=== PATIENT | female | born 1975 | race Caucasian/White ===

== ENCOUNTER 2019-06-11 20:50 | Inpatient (IN) | payer SELFPAY ==
[2019-06-11] MEDS ORDERED: FOLIC ACID INJECTION - 1 MG, THIAMINE HCL 100 MG, MULTIVIT INJECTION ADULT 10 ML in SOD... IVPB ONE (21:51)
[2019-06-11] MEDS ORDERED: SODIUM CHLORIDE 1,000 ML IV STA (21:51)
--- NOTE | 2019-06-11 21:53 | PDOC ---
History of Present Illness - General Chief Complaint: Alcohol intoxication Stated Complaint: DETOX Time Seen by Provider: 06/11/19 21:28 History Source: Patient Exam Limitations: No Limitations - History of Present Illness Initial Comments: 06/11/19 21:46 Patient is a 44F with history of alcohol abuse, last drink 8 days ago, here today complaining of weakness, nausea and vomiting that started about 8 days ago. Patient states that she stopped drinking because of repeated episodes of nausea and vomiting. She reports two episodes of collapsing while moving towards the bathroom with a brief loss of consciousness and urinary incontinence. No tongue biting or head pain. Patient denies changes to vision, chest pain, abdominal pain. Endorses urinary incontinence. Endorses changes to her gait, stating that it's unsteady. Denies history of seizures. Last bowel movement 8 days ago. No surgical history. Daughter at bedside reports that she' s had episodes of confusion. Past History - Past Medical History Allergies/Adverse Reactions: Allergies Allergy/AdvReac Type Severity Reaction Status Date / Time No Known Allergies Allergy Verified 06/11/19 21:14 COPD: No - Psycho Social/Smoking Cessation Hx Smoking History: Current every day smoker Have you smoked in the past 12 months: Yes Number of Cigarettes Smoked Daily: 2 Information on smoking cessation initiated: No Hx Alcohol Use: Yes Drug/Substance Use Hx: No Review of Systems - Review of Systems Able to Perform ROS?: Yes Comments:: 06/11/19 21:53 GENERAL/CONSTITUTIONAL: No fever or chills. +weakness. HEAD, EYES, EARS, NOSE AND THROAT: No change in vision. No ear pain or discharge. No sore throat. CARDIOVASCULAR: No chest pain or shortness of breath RESPIRATORY: No cough, wheezing, or hemoptysis. GASTROINTESTINAL: +nausea, +vomiting, no diarrhea +constipation. GENITOURINARY: No dysuria, +frequency MUSCULOSKELETAL: No joint or muscle swelling or pain. No neck or back pain. SKIN: No rash NEUROLOGIC: No headache, vertigo, loss of consciousness, or change in strength/ sensation. ENDOCRINE: No increased thirst. No abnormal weight change HEMATOLOGIC/LYMPHATIC: No anemia, easy bleeding, or history of blood clots. ALLERGIC/IMMUNOLOGIC: No hives or skin allergy. *Physical Exam - Vital Signs Last Vital Signs Temp Pulse Resp BP Pulse Ox 98.5 F 144 H 22 H 130/82 98 06/11/19 21:05 06/11/19 21:05 06/11/19 21:05 06/11/19 21:05 06/11/19 21:05 - Physical Exam Comments: 06/11/19 21:54 GENERAL: Awake, alert, and fully oriented, thin, ill-appearing HEAD: No signs of trauma, normocephalic, atraumatic EYES: PERRLA, EOMI, sclera icteric, conjunctiva clear ENT: Auricles normal inspection, hearing grossly normal, nares patent, oropharynx clear without exudates. Dry mucosa NECK: Normal ROM, supple, no lymphadenopathy, JVD, or masses LUNGS: No distress, speaks full sentences, clear to auscultation bilaterally HEART: Tachycardic, normal S1 and S2, no murmurs, rubs or gallops, peripheral pulses normal and equal bilaterally. ABDOMEN: Soft, nontender, normoactive bowel sounds. No guarding, no rebound. No masses EXTREMITIES: Normal inspection, Normal range of motion, no edema. No clubbing or cyanosis. NEUROLOGICAL: Cranial nerves II through XII grossly intact. Normal speech, no focal sensorimotor deficits SKIN: Warm, Dry, normal turgor, no rashes or lesions noted. ED Treatment Course - LABORATORY CBC & Chemistry Diagram: 06/11/19 21:40 06/11/19 21:40 - RADIOLOGY Radiology Studies Ordered: Category Date Time Status HEAD CT WITHOUT CONTRAST [CT] Stat CT Scan 06/11/19 21:43 Ordered CHEST X-RAY PORTABLE* [RAD] Stat Radiology 06/11/19 21:26 Ordered Medical Decision Making - Medical Decision Making 06/11/19 21:55 Patient is 44F with history of etoh abuse here with vomiting. Vitals notable for tachycardia. Patient is jaundiced and generally does not appear well. Will workup broadly looking for infection, evaluate syncope vs seizure, and hydrate. EKG shows sinus tach rate of 125. ST depressions in II, aVF, V3-V6. Normal axis. Normal intervals. No st elevations. 06/12/19 00:21 CBC shows macrocytosis CMP shows Cr 1.4, hyponatremia, hypokalemia (given 40meq K), Bili of 6, AST/ALT elevation Lipase positive to 1100 Lactate 4.8 Ammonia 66 UA shows ketones, bili, but no clear signs of infection. Labs show evidence of liver dysfunction likely 2/2 alcohol abuse. Lipase suggests pancreatitis. CT head negative. CT a/p shows evidence of gallbladder distention but no clear signs of cholecystitis or pancreatitis. Shows ?colitis. US pending. 06/12/19 01:15 US shows sludge, but no signs of cholecytitis, cbd upper limits of normal. Patient reassessed, states that she feels much better. Tachycardia has resolved. 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 Will admit. Started on LR. 06/12/19 01:41 Case d/w Dr Osorio, accepted to Dr Deleon service. Discharge - Discharge Information Problems reviewed: Yes Clinical Impression/Diagnosis: Pancreatitis Condition: Stable - Admission Yes - Follow up/Referral - Patient Discharge Instructions - Post Discharge Activity
[2019-06-11 22:11] LABS: BASO % 0.4 % (0-2.0); EOS % 0.1 % (0-4.5); HEMATOCRIT 36.2 % (32.4-45.2); HEMOGLOBIN 12.6 GM/dL (10.7-15.3); LYMPH % 12.6 % (8-40); MCH 39.9 pg (25.7-33.7); MEAN PLT VOLUME 9.6 fl (7.5-11.1); MONO % 6.7 % (3.8-10.2); NEUT % 80.2 % (42.8-82.8); PLATELET COUNT 105 K/MM3 (134-434); RBC 3.17 M/mm3 (3.60-5.2); RDW 15.4 % (11.6-15.6); WHITE BLOOD COUNT 5.3 K/mm3 (4.0-10.0)
[2019-06-11 22:13] LABS: COCAINE, UR NEGATIVE ng/ml (CUTOFF=300); METHADONE, UR NEGATIVE ng/ml (CUTOFF=300); OPIATES, URI NEGATIVE ng/ml (CUTOFF=300); PHENCYCLIDINE,URINE NEGATIVE ng/ml (CUTOFF=25); URINE AMPHETAMINES NEGATIVE ng/ml (CUTOFF=500); URINE BARBITURATES NEGATIVE ng/ml (CUTOFF=200)
[2019-06-11 22:14] LABS: URINE BENZODIAZEPINES POSITIVE ng/ml (CUTOFF=200)
--- NOTE | 2019-06-11 22:18 | PDOC ---
Documentation entered by Mona Yanes SCRIBE, acting as scribe for Roseline Campbell DO. Roseline Campbell DO: This documentation has been prepared by the Joaquín lorenzana Adrianna, SCRIBE, under my direction and personally reviewed by me in its entirety. I confirm that the documentation accurately reflects all work, treatment, procedures, and medical decision making performed by me. Attending Attestation - Resident Resident Name: Keven Giang - ED Attending Attestation I have performed the following: I have examined & evaluated the patient, The case was reviewed & discussed with the resident, I agree w/resident's findings & plan - HPI HPI: The patient is a 44 year old female, with a PMH of alcohol abuse (last drink was 8 days ago), presenting with nausea, vomit, and weakness for 8 days. Patient reports multiple episodes of nausea and NBNB vomit, and stopped drinking as a result. She endorses generalized weakness and unsteady gait, which 2 episodes of collapsing with brief LOC and urinary incontinence. Allergies: NKA, NKDA Surgical History: None reported Social History: Current everyday smoker (2 cigarettes per day). Alcohol abuse ( last drink 8 days ago). - Physicial Exam PE: Agree with resident exam. - Medical Decision Making 06/11/19 22:12 44 yo female with abd pain, n/v and possible syncope/seizure with ETOH dependance plan for vitamin replacment, ivf, CXR, CT scan abd/pelvis and brain Will initiate withdrawal benzodiazepine protocol as needed Due to vomiting and withdrawal symptoms patient will require admission to medical service
[2019-06-11 22:19] LABS: MAGNESIUM 1.2 mg/dL (1.8-2.4)
[2019-06-11 22:24] LABS: INR 1.28 (0.83-1.09); PROTHROMBIN TIME (PATIENT) 15.1 SEC (9.7-13.0)
[2019-06-11 22:29] LABS: ALBUMIN 4.4 g/dl (3.4-5.0); ALK PHOS 198 U/L (45-117); ANION GAP 25 MMOL/L (8-16); BILIRUBIN,TOTAL 6.5 mg/dL (0.2-1); BLOOD UREA NITROGEN 3.5 mg/dL (7-18); CALCIUM 9.8 mg/dL (8.5-10.1); CHLORIDE 81 mmol/L (98-107); CO2 22 mmol/L (21-32); CREATININE 1.4 mg/dL (0.55-1.3); GLUCOSE,RANDOM 145 mg/dL (74-106); SGOT/AST 277 U/L (15-37); SGPT/ALT 117 U/L (13-61); SODIUM 128 mmol/L (136-145); TOT PROT 8.5 g/dl (6.4-8.2)
[2019-06-11 22:34] LABS: POTASSIUM 2.3 mmol/L (3.5-5.1)
[2019-06-11] MEDS ORDERED: POTASSIUM CHLORIDE 20 MEQ PREMIX IVPB 100 ML IVPB ONE (22:35)
[2019-06-11 23:01] LABS: URINE APPEARANCE Clear; URINE BILIRUBIN 3+ (NEGATIVE); URINE COLOR Yellow; URINE GLUCOSE (UA) Trace (NEGATIVE); URINE KETONE 4+ (NEGATIVE); URINE LEUK ESTERASE 1+ (NEGATIVE); URINE NITRITE Negative (NEGATIVE); URINE PROTEIN 2+ (NEGATIVE); URINE UROBILINOGEN >=8.0 E.U./dl mg/dL (0.2-1.0)
[2019-06-11 23:12] LABS: ANISOCYTOSIS 1+
[2019-06-11 23:13] LABS: PLATELET ESTIMATE SLT DECREASE
[2019-06-12] MEDS ORDERED: LACTATED RINGERS SOLUTION 1,000 ML/1,000 ML INFUS.BAG IV STA (01:13)
[2019-06-12] MEDS ORDERED: MAGNESIUM SULF 50% (8.12 MEQ/2 ML-1 GM VIAL) IVPB ONE ×3 (01:45→22:01)
[2019-06-12] MEDS ORDERED: MAGNESIUM 1GM/D5W - 1 GM/100 ML IVPB IVPB ONE (01:48)
--- NOTE | 2019-06-12 03:00 | HP ---
CHIEF COMPLAINT: weakness PCP: none HISTORY OF PRESENT ILLNESS: 44 y.o. F PMH EtOH abuse and eczema presenting from home for weakness, nausea, vomiting and multiple falls for the past 3 weeks. Patient says she has been increasingly nauseous over the last 8 days with innumerable episodes NBNB emesis daily, as well as inability to eat for 7 days total. She has been able to hold down some water. 8 days ago the N/V was so severe that she could not hold down her usual 4-5 daily cups of alcohol-- 4 days ago she tried taking small sips of vodka but immediately vomited. Pt has had 6 falls over the past 10 days and says her gait has been unsteady-- 3 days ago she lost consciousness w/ urinary incontinence but her boyfriend caught her before hitting the floor-- last fall was yesterday where she hit her head but did not lose consciousness. She has not had a full BM in 8 days although had a little bit yesterday but not a full BM. Pt endorsed to ED staff she has been taking benzos over the last few days which has helped with her nausea. Denies sick contacts. On ROS: + urinary urgency Denies CP/ SOB/ CAMERON/ tremors/ abdominal pain/ fevers/ diarrhea/ polyuria/ hematuria/ parasthesias/ myalgias/ AV hallucinations. ER course was notable for: (1) Tachy to 144; ekg shows sinus tach (2) Lipase 1229 Ammonia 66.1 Lactate 4.8 T.Bili 6.5 AST/ALT 277/117; BUN/ Cr 3.5/1.4 (3) CT abd/pel: fatty liver, nonspecific colitis; abd US: GB sludge; CT head neg (4) +UA: ketones, protein, LE, bili, urobilinogen; Utox + for benzos Recent Travel: denies PAST MEDICAL HISTORY: etoh abuse, eczema PAST SURGICAL HISTORY: none Social History: lives w/ 23 yr old daughter & boyfriend. 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 Smoking: normally smoke about 1 pack/ day for many years--- past 8 days 2-3 cigarettes per day Alcohol: 4-5 cups vodka daily. Started drinking 5 years ago Drugs: denies Allergies No Known Allergies Allergy (Verified 06/11/19 21:14) HOME MEDICATIONS: none Family hx: HTN, DM in mother. PHYSICAL EXAMINATION Vital Signs - 24 hr 06/11/19 06/11/19 06/11/19 21:05 22:21 23:41 Temperature 98.5 F 99.0 F Pulse Rate 144 H Pulse Rate [ 117 H 116 H Apical] Respiratory 22 H 20 19 Rate Blood Pressure 130/82 Blood Pressure 133/78 124/88 [Right Arm] O2 Sat by Pulse 98 100 99 Oximetry (%) GENERAL: Thin female appears stated age. Awake, alert, and fully oriented, in no acute distress. HEENT: NCAT. Scleral icterus present. Facial pallor. MMM. Skin is erythematous- pt says it is normal from eczema LUNGS: Breath sounds equal, clear to auscultation bilaterally. No wheezes, and no crackles. No accessory muscle use. HEART: Regular rate and rhythm, normal S1 and S2 without murmurs ABDOMEN: Negative murphys sign. Soft, nontender, not distended, normoactive bowel sounds, no guarding, no organomegaly. MUSCULOSKELETAL: Good ROM. No CVA tenderness. EXTR: 2+ pulses palpated b/l UE & LE. No peripheral edema noted. Mild tremors w / outstrectched hands. No tongue fasciculations noted. NEUROLOGICAL: Cranial nerves II-XII intact. Sensory intact b/l UE & LE. Motor strength WNL. Normal speech. Normal gait. PSYCHIATRIC: Good mood, affect appropriate to mood. Laboratory Results - last 24 hr 06/11/19 06/11/19 06/11/19 21:38 21:40 21:40 WBC 5.3 RBC 3.17 L Hgb 12.6 Hct 36.2 MCV 114.0 H MCH 39.9 H MCHC 35.0 RDW 15.4 Plt Count 105 L MPV 9.6 Absolute Neuts (auto) 4.3 Neutrophils % 80.2 Lymphocytes % 12.6 Monocytes % 6.7 Eosinophils % 0.1 Basophils % 0.4 Nucleated RBC % 0 Platelet Estimate Slt decrease Anisocytosis 1+ Stomatocytes 1+ PT with INR INR Sodium Potassium Chloride Carbon Dioxide Anion Gap BUN Creatinine Est GFR (CKD-EPI)AfAm Est GFR (CKD-EPI)NonAf Random Glucose Lactic Acid 4.8 H* Calcium Magnesium Total Bilirubin AST ALT Alkaline Phosphatase Ammonia Creatine Kinase 96 Troponin I < 0.02 Total Protein Albumin Lipase Urine Color Urine Appearance Urine pH Ur Specific [place] Urine Protein Urine Glucose (UA) Urine Ketones Urine Blood Urine Nitrite Urine Bilirubin Urine Urobilinogen Ur Leukocyte Esterase Urine RBC (Auto) Urine HCG, Qual Opiates Screen Methadone Screen Barbiturate Screen Phencyclidine Screen Ur Amphetamines Screen MDMA (Ecstasy) Screen Benzodiazepines Screen Cocaine Screen U Marijuana (THC) Screen Alcohol, Quantitative 06/11/19 06/11/19 06/11/19 21:40 21:40 21:40 WBC RBC Hgb Hct MCV MCH MCHC RDW Plt Count MPV Absolute Neuts (auto) Neutrophils % Lymphocytes % Monocytes % Eosinophils % Basophils % Nucleated RBC % Platelet Estimate Anisocytosis Stomatocytes PT with INR 15.10 H INR 1.28 H Sodium 128 L Potassium 2.3 L* Chloride 81 L Carbon Dioxide 22 Anion Gap 25 H BUN 3.5 L Creatinine 1.4 H Est GFR (CKD-EPI)AfAm 52.09 Est GFR (CKD-EPI)NonAf 44.95 Random Glucose 145 H Lactic Acid Calcium 9.8 Magnesium 1.2 L Total Bilirubin 6.5 H AST 277 H ALT 117 H Alkaline Phosphatase 198 H Ammonia Creatine Kinase Troponin I Total Protein 8.5 H Albumin 4.4 Lipase 1229 H Urine Color Urine Appearance Urine pH Ur Specific [place] Urine Protein Urine Glucose (UA) Urine Ketones Urine Blood Urine Nitrite Urine Bilirubin Urine Urobilinogen Ur Leukocyte Esterase Urine RBC (Auto) Urine HCG, Qual Opiates Screen Methadone Screen Barbiturate Screen Phencyclidine Screen Ur Amphetamines Screen MDMA (Ecstasy) Screen Benzodiazepines Screen Cocaine Screen U Marijuana (THC) Screen Alcohol, Quantitative < 3.0 06/11/19 06/11/19 06/11/19 21:40 21:40 21:40 WBC RBC Hgb Hct MCV MCH MCHC RDW Plt Count MPV Absolute Neuts (auto) Neutrophils % Lymphocytes % Monocytes % Eosinophils % Basophils % Nucleated RBC % Platelet Estimate Anisocytosis Stomatocytes PT with INR INR Sodium Potassium Chloride Carbon Dioxide Anion Gap BUN Creatinine Est GFR (CKD-EPI)AfAm Est GFR (CKD-EPI)NonAf Random Glucose Lactic Acid Calcium Magnesium Total Bilirubin AST ALT Alkaline Phosphatase Ammonia Creatine Kinase Troponin I Total Protein Albumin Lipase Urine Color Yellow Urine Appearance Clear Urine pH 6.0 Ur Specific [place] 1.025 Urine Protein 2+ H Urine Glucose (UA) Trace Urine Ketones 4+ H Urine Blood Trace-lysed Urine Nitrite Negative Urine Bilirubin 3+ H Urine Urobilinogen >=8.0 e.u./dl H Ur Leukocyte Esterase 1+ H Urine RBC (Auto) Environmental Sampler Urine HCG, Qual Negative Opiates Screen Negative Methadone Screen Negative Barbiturate Screen Negative Phencyclidine Screen Negative Ur Amphetamines Screen Negative MDMA (Ecstasy) Screen Negative Benzodiazepines Screen Positive A* Cocaine Screen Negative U Marijuana (THC) Screen Negative Alcohol, Quantitative 06/11/19 21:40 WBC RBC Hgb Hct MCV MCH MCHC RDW Plt Count MPV Absolute Neuts (auto) Neutrophils % Lymphocytes % Monocytes % Eosinophils % Basophils % Nucleated RBC % Platelet Estimate Anisocytosis Stomatocytes PT with INR INR Sodium Potassium Chloride Carbon Dioxide Anion Gap BUN Creatinine Est GFR (CKD-EPI)AfAm Est GFR (CKD-EPI)NonAf Random Glucose Lactic Acid Calcium Magnesium Total Bilirubin AST ALT Alkaline Phosphatase Ammonia 66.10 H Creatine Kinase Troponin I Total Protein Albumin Lipase Urine Color Urine Appearance Urine pH Ur Specific [place] Urine Protein Urine Glucose (UA) Urine Ketones Urine Blood Urine Nitrite Urine Bilirubin Urine Urobilinogen Ur Leukocyte Esterase Urine RBC (Auto) Urine HCG, Qual Opiates Screen Methadone Screen Barbiturate Screen Phencyclidine Screen Ur Amphetamines Screen MDMA (Ecstasy) Screen Benzodiazepines Screen Cocaine Screen U Marijuana (THC) Screen Alcohol, Quantitative CT Head: mild cortical atrophy greater than expected for age CT abd/pel with contrast: Enlarged liver w/ fatty changes. Circumferential thickening of cecum & asc colon compatible w/ nonspecific colitis, ischemic, inflamm or infectious. Mod to large amt of retained stool in distal colon. IUD present. Small rt inguinal hernia containing fat. Mild atelectasis at R lung base. Abd U/S: GB sludge. CBD is upper limits of normal measuring 6mm. Pancreatic body & tail appear normal; tail obscured by bowel gas ASSESSMENT/PLAN: 44 y.o. F PMH EtOH abuse and eczema presenting from home due to weakness. #Acute alcoholic hepatitis 2/2 chronic EtOH abuse -Lipase 1229, T.bili 6.5 -Abdominal exam WNL no pain -CT abd/pel shows liver steatosis -Ammonia 66.1 -[facility] discriminant function 25; no indication for steroid tx at this time -NPO -Aggressive hydration -IV Zofran for nausea PRN -F/u hepatitis panels, HIV (consent verbally obtained from patient) #Colitis/ gastritis -IV Protonix #Syncopal episode -Monitor on tele -EKG shows ST depressions in II, V4, V5, aVF -F/u repeat trop & EKG, echo #High anion gap metabolic acidosis w/ likely metabolic alkalosis -Likely 2/2 alcohol abuse--> lactic acidosis (lactate 4.8 downtrended to 1.6) -Pt satting well on RA no resp distress -F/u ABG, calc delta gap #EtOH abuse -MCV 114; AST/ALT 277/117 -Banana bag -Thiamine & FA -Ativan PRN 2mg q2h for withdrawal -Fall, aspiration, seizure precautions #Dehydration -Poor PO intake, vomiting -C/w aggressive hydration -BUN 3.5-- f/u AM BMP -Repleting lytes #GANESH -Cr 1.4 no baseline -likely 2/2 dehydration volume loss -f/u urine lytes calc FeNa -avoid nephrotoxic medications #Constipation -D/t dehydration -Senna -Continue to monitor #Eczema -Pt using aquaphor at home #FEN -Aggresive hydration w/ NS @200mL/hr w/ KCL -Hyponatremic, hypokalemic, hypomagnesemic, hypochloremic-- likely 2/2 poor PO intake replete lytes PRN. 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 - New Patient This patient is new to me today: Yes Date on this admission: 06/12/19 - Critical Care Critical Care patient: No ATTENDING PHYSICIAN STATEMENT I saw and evaluated the patient. I reviewed the resident's note and discussed the case with the resident. I agree with the resident's findings and plan as documented. SUBJECTIVE: OBJECTIVE: ASSESSMENT AND PLAN:
[2019-06-12] MEDS ORDERED: FOLIC ACID INJECTION - 1 MG, THIAMINE HCL 100 MG, MULTIVIT INJECTION ADULT 10 ML in SOD... IVPB ONE (03:08)
--- NOTE | 2019-06-12 03:15 | PN ---
Teaching Attending Note Name of Resident: Clarissa Osorio ATTENDING PHYSICIAN STATEMENT I saw and evaluated the patient. I reviewed the resident's note and discussed the case with the resident. I agree with the resident's findings and plan as documented. SUBJECTIVE: 44yo woman with chronic etoh abuse, drinks up up to 3 cups of hard liquor/day c/ o several days of nonbloody, nonbilious vomiting, unable to keep down food. Reports last drink was about 7-10 days ago. She feels weak, reported up to 5 episodes of syncope of last 5 days. Denied trauma to head. Denied illicit drug use. OBJECTIVE: Last Vital Signs Temp Pulse Resp BP Pulse Ox 99.0 F 116 H 19 124/88 100 06/11/19 23:41 06/11/19 23:41 06/11/19 23:41 06/11/19 23:41 06/11/19 23:41 heent - icteric sclera, dry oral mucosa, emaciated neck supple, sunken cheeks cv-s1+s2+tachy chest clear b/l abdomen -ruq tenderness to palpation, enlarged liver palpable, bs+, soft skin- jaundiced, no rashes appreciated, no track melara seen Abnormal Lab Results 06/11/19 06/11/19 06/11/19 21:38 21:40 21:40 RBC 3.17 L MCV 114.0 H MCH 39.9 H Plt Count 105 L PT with INR INR Sodium 128 L Potassium 2.3 L* Chloride 81 L Anion Gap 25 H BUN 3.5 L Creatinine 1.4 H Random Glucose 145 H Lactic Acid 4.8 H* Magnesium Total Bilirubin 6.5 H AST 277 H ALT 117 H Alkaline Phosphatase 198 H Ammonia Total Protein 8.5 H Lipase Urine Protein Urine Ketones Urine Bilirubin Urine Urobilinogen Ur Leukocyte Esterase Benzodiazepines Screen 06/11/19 06/11/19 06/11/19 21:40 21:40 21:40 RBC MCV MCH Plt Count PT with INR 15.10 H INR 1.28 H Sodium Potassium Chloride Anion Gap BUN Creatinine Random Glucose Lactic Acid Magnesium 1.2 L Total Bilirubin AST ALT Alkaline Phosphatase Ammonia Total Protein Lipase 1229 H Urine Protein Urine Ketones Urine Bilirubin Urine Urobilinogen Ur Leukocyte Esterase Benzodiazepines Screen Positive A* 06/11/19 06/11/19 21:40 21:40 RBC MCV MCH Plt Count PT with INR INR Sodium Potassium Chloride Anion Gap BUN Creatinine Random Glucose Lactic Acid Magnesium Total Bilirubin AST ALT Alkaline Phosphatase Ammonia 66.10 H Total Protein Lipase Urine Protein 2+ H Urine Ketones 4+ H Urine Bilirubin 3+ H Urine Urobilinogen >=8.0 e.u./dl H Ur Leukocyte Esterase 1+ H Benzodiazepines Screen imaging reviewed - abd/pelvis ct- hepatomegally, enlarged gallbladder, pancreas appears to be small and atrophied ekg reviewed- possible st depressions in anterior-inferior leads. Possible U waves, otherwise sinus tachycardia , borderline prolonged qtc ASSESSMENT AND PLAN: #Acute alcoholic hepatitis secondary to chronic etoh abuse. Transaminitis+, hyperbilirubinemia+. Discriminant factor calculated to be 25. Should r/o viral hepatitis- B,C and tylenol intoxication. Should suspect possible etoh withdrawal. -avoid hepatotoxins -consider gi consult -thiamine folate, mv -banana bag -zofran iv prn if nausea/vomiting -detox protocol with lorazepam -hold off prednisolone for now -protonix for underlying gastritis -trend hepatic panel -benadryl if pruritus from underlying hyperbilirubinemia #severe electrolyte disturbances - hyponatremia, hypochloremia, severe hypokalemia, hypomagnesemia. Likely secondary to prolonged vomiting as well as beer potomania and malnutrion. Possible U waves seen on EKG. -telemetry for hx of syncope and severe hypokalemia with U waves on ekg -urine osm, serum osm, urine lytes -aggressive electrolyte supplementation -k, cl, na, mg -check phosphate and supplement if low -add kcl to normal saline #GANESH- likely prerenal -avoid nephrotoxins -i/o -daily weights #ST depression on ekg/syncope -monitoring manager -trend trop -echo #thrombocytopenia - likely from underlyng etoh abuse, splenic sequestration -trend plt -r/o viral hepatitis, hiv -HAGMA- likely from lactic acidosis. Probably mixed acid base d/o. Would obtain delta gap to evaluate for possible mixed d/o- metabolic acidosis secondary to lactate elevated which is from liver injury, etoh abuse. metabolic alk from vomiting -d-d ratio -would check mudpiles to r/o other potential causes of HAGMA -abg -trend lactate #DVT ppx- heparin sc
[2019-06-12] MEDS: SODIUM CHLORIDE 1,000 ML with POTASSIUM CHLORIDE 20 MEQ IVPB SCH (04:00)
[2019-06-12] MEDS: SENNOSIDES 8.6MG TABLET (FP) PO SCH ×2 (04:00→21:36)
[2019-06-12] MEDS ORDERED: LORazepam 2 MG/ML SDV VIAL IVPUSH PRN (04:15)
[2019-06-12] MEDS ORDERED: SENNOSIDES 8.6MG TABLET (FP) PO ONE (04:30)
[2019-06-12 06:58] LABS: ARTERIAL BLD GAS O2 SATURATION 98.2 % (95-98); ARTERIAL BLOOD GAS BASE EXCESS 1.4 meq/l (-2-2); ARTERIAL BLOOD GAS PCO2 33.8 mmHg (35-45); ARTERIAL BLOOD GAS PO2 88.1 mmHg (80-100); ARTERIAL BLOOD GAS pH 7.47 (7.35-7.45); CARBOXYHEMOGLOBIN 2.8 % (0-2)
[2019-06-12 07:42] LABS: BASO % 0.7 % (0-2.0); EOS % 0.2 % (0-4.5); HEMATOCRIT 26.8 % (32.4-45.2); HEMOGLOBIN 9.5 GM/dL (10.7-15.3); LYMPH % 24.2 % (8-40); MCHC 35.4 g/dl (32.0-36.0); MEAN CELL VOLUME 114.6 fl (80-96); MEAN PLT VOLUME 9.6 fl (7.5-11.1); MONO % 8.8 % (3.8-10.2); NEUT % 66.1 % (42.8-82.8); PLATELET COUNT 60 K/MM3 (134-434); RBC 2.34 M/mm3 (3.60-5.2); RDW 15.6 % (11.6-15.6); WHITE BLOOD COUNT 3.4 K/mm3 (4.0-10.0)
[2019-06-12 07:50] LABS: INR 1.24 (0.83-1.09); PROTHROMBIN TIME (PATIENT) 14.7 SEC (9.7-13.0)
[2019-06-12 07:53] LABS: ACTIVATED PTT 31.7 SECONDS (25.2-36.5)
[2019-06-12 08:27] LABS: MCH 40.5 pg (25.7-33.7)
[2019-06-12 08:36] LABS: ALBUMIN 3.1 g/dl (3.4-5.0); BILIRUBIN,TOTAL 4.4 mg/dL (0.2-1); CALCIUM 8.2 mg/dL (8.5-10.1); CREATININE 0.8 mg/dL (0.55-1.3); MAGNESIUM 1.6 mg/dL (1.8-2.4); TOT PROT 6.2 g/dl (6.4-8.2)
[2019-06-12] MEDS ORDERED: THIAMINE HCL 100 MG TABLET (FP) ONE (08:47)
[2019-06-12] MEDS ORDERED: FOLIC ACID 1 MG TABLET (FP) ONE (08:47)
[2019-06-12] MEDS ORDERED: PANTOPRAZOLE SODIUM 40 MG VIAL ONE (08:48)
[2019-06-12 08:50] LABS: ANION GAP 17 MMOL/L (8-16); CHLORIDE 94 mmol/L (98-107); CO2 25 mmol/L (21-32); SODIUM 135 mmol/L (136-145)
[2019-06-12] MEDS: THIAMINE HCL 100 MG TABLET (FP) PO SCH (09:09)
[2019-06-12] MEDS: MINERAL OIL/PET HY-PHL TOPICAL OINTMENT 454 GM JAR TP SCH (09:09)
[2019-06-12] MEDS: FOLIC ACID 1 MG TABLET (FP) PO SCH (09:09)
[2019-06-12] MEDS: PANTOPRAZOLE SODIUM 40 MG VIAL IVPUSH SCH (09:09)
[2019-06-12 09:15] LABS: BLOOD UREA NITROGEN 1.4 mg/dL (7-18); PHOSPHOROUS 0.2 mg/dL (2.5-4.9); POTASSIUM 2.4 mmol/L (3.5-5.1)
[2019-06-12 09:16] LABS: POTASSIUM 2.4 mmol/L (3.5-5.1)
--- NOTE | 2019-06-12 10:47 | CON.GI ---
Consult Consult Specialty:: Gastoetnerology Referred by:: Emergency Department Reason for Consultation:: Asked to see patient to assist in management of alcoholic hepatitis. - History of Present Illness History of Present Illness: Asked to evaluate patient to assist in management of alcoholic hepatitis. 44 yo woman with many year history of large alcohol intake, more than 5 shots/ drinks of vodka daily for last 5 years. Stopped approximately 1 week ago when she developed loss of appetite, episodic bland vomitus, inability to tolerate any solids, subsisting on sips of water. This started to resolve, but in the last few days, she has noted severe fatigue, weakness, loss of gait with a few falls. No loss of consciousness. No shaking. No seizures. 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 denies: Chills, Fever, Unintentional Wgt. Loss HENT: denies: Difficult Swallowing Gastrointestinal: reports: Vomiting. denies: Abdominal Pain, Bloating, Constipation, Diarrhea, Dysphagia, Vomiting Blood Neurological: denies: Numbness, Parasthesia, Seizure Physical Exam-GI Vital Signs: Vital Signs Temperature 98.4 F 06/12/19 07:15 Pulse Rate 100 H 06/12/19 07:15 Respiratory Rate 18 06/12/19 07:15 Blood Pressure 137/83 06/12/19 07:15 O2 Sat by Pulse Oximetry (%) 99 06/12/19 07:15 Constitutional: Yes: No Distress, Calm Respiratory: Yes: Regular, CTA Bilaterally Gastrointestinal Inspection: No: Distention ...Auscultate: Yes: Normoactive Bowel Sounds ...Palpate: Yes: Soft. No: Hepatomegaly, Mass, Splenomegaly Labs: CBC, BMP 06/12/19 06:36 06/12/19 08:00 INR, PTT INR 1.24 (0.83-1.09) H 06/12/19 06:36 Imaging - Results Cat Scan: Report Reviewed Ultrasound: Report Reviewed (GB sludge and fatty infiltration noted on US. No GB stones or choledochelithiasis.) Assessment/Plan Labs with Hgb now 9.5, platelets of 60K; INR=1.24, Bilit-t-4.6, AST/CZW=754/79, alk-kpnp=2349, qifsts=9432, K=2.4, phosphorous=0.2 Likely alcoholic hepatitis, though resolving pancreatitis also possible given lipase >1000. Suggest IVF support. With Maddrey Discriminant Function under 31, no role for corticosteroids at this time. Presumptive nutritional support for EtOH withdrawal with thiamine, folate, B12 Slow feeding to avoid re-feeding syndrome given low phosphorous (=0.2) and low potassium (2.4). Repelete electrolytes and low calorie clear liquid diet for now.. Fatty liver likely a function of EtOH Likely cirrhotic given low platelet count Please check iron studies, B12 and folic acid levels Possible EGD to assess for presence/absence of varices prior to discharge
[2019-06-12] MEDS: MULTIVITAMINS (DAILY MVI) TABLET (FP) PO SCH (10:55)
[2019-06-12] MEDS ORDERED: KCL 10 MEQ IVPB 10 MEQ/100 ML INFUS.BAG IVPB SCH ×3 (11:15→22:00)
[2019-06-12] MEDS ORDERED: LORazepam 1 MG TABLET PO PRN (11:16)
[2019-06-12] MEDS ORDERED: KCL 10 MEQ IVPB 10 MEQ/100 ML INFUS.BAG IVPB ONE ×3 (11:19→14:52)
[2019-06-12] MEDS ORDERED: POTASSIUM CHLORIDE 20 MEQ PREMIX IVPB 100 ML IVPB ONE (11:19)
[2019-06-12 11:56] LABS: OSMOLALITY,SERUM 288 mosm/kg (278-305)
[2019-06-12] MEDS ORDERED: POTASSIUM CHLORIDE TABS 20 MEQ TABLET.ER (FP) PO ONE ×2 (12:00→12:15)
--- NOTE | 2019-06-12 12:10 | EKG ---
Test Reason : Blood Pressure : / mmHG Vent. Rate : 125 BPM Atrial Rate : 125 BPM P-R Int : 122 ms QRS Dur : 086 ms QT Int : 334 ms P-R-T Axes : 050 033 153 degrees QTc Int : 482 ms SINUS TACHYCARDIA ABNORMAL ECG NO PREVIOUS ECGS AVAILABLE Confirmed by EVERTON TELLEZ MD ([id number]) on 06/12/2019 12:09:35 PM Referred By: Confirmed By:EVERTON TELLEZ MD
--- NOTE | 2019-06-12 12:11 | EKG ---
Test Reason : Blood Pressure : / mmHG Vent. Rate : 090 BPM Atrial Rate : 090 BPM P-R Int : 112 ms QRS Dur : 088 ms QT Int : 402 ms P-R-T Axes : -22 063 -81 degrees QTc Int : 491 ms NORMAL SINUS RHYTHM PROLONGED QT ABNORMAL ECG WHEN COMPARED WITH ECG OF 11-JUN-2019 21:34, NONSPECIFIC T WAVE ABNORMALITY HAS REPLACED INVERTED T WAVES IN ANTEROLATERAL LEADS Confirmed by GEOFF MUÑIZ, EVERTON ([id number]) on 06/12/2019 12:10:50 PM Referred By: MELE JURADO Confirmed By:EVERTON TELLEZ MD
[2019-06-12] MEDS: KCL 10 MEQ IVPB 10 MEQ/100 ML INFUS.BAG IVPB SCH ×3 (12:20→14:53)
[2019-06-12] MEDS: NAPH,MB-DB/K PH,MBDB POWDER PACKET PO SCH ×2 (14:52→21:36)
[2019-06-12 15:40] LABS: ANION GAP 15 MMOL/L (8-16); CALCIUM 7.9 mg/dL (8.5-10.1); CHLORIDE 97 mmol/L (98-107); CO2 25 mmol/L (21-32); CREATININE 0.7 mg/dL (0.55-1.3); GLUCOSE,RANDOM 64 mg/dL (74-106); SODIUM 136 mmol/L (136-145)
[2019-06-12 15:42] LABS: BLOOD UREA NITROGEN 1.6 mg/dL (7-18)
[2019-06-12 15:43] LABS: PHOSPHOROUS < 0.1 mg/dL (2.5-4.9)
--- NOTE | 2019-06-12 16:05 | ECHO ---
Name: LEILA WALLACE Exam:Adult Echocardiogram Study Date: 06/12/2019 12:39 PM Age: 44 yrs Reason For Study: SYNCOPE Height: 64 in Weight: 99 lb BSA: 1.5 m2 MMode/2D Measurements & Calculations IVSd: 0.86 cm Ao root diam: 3.0 cm LVIDd: 3.4 cm LA dimension: 2.0 cm LVIDs: 2.3 cm LVPWd: 0.97 cm EDV(Teich): 46.1 ml LVOT diam: 2.0 cm ESV(Teich): 18.5 ml Doppler Measurements & Calculations MV E max hever: 73.1 cm/sec Ao V2 max: 107.2 cm/sec MV A max hever: 70.1 cm/sec Ao max P.6 mmHg MV E/A: 1.0 MV dec time: 0.14 sec KANWAL(V,D): 2.5 cm2 LV V1 max P.8 mmHg TR max hever: 195.5 cm/sec LV V1 max: 83.4 cm/sec TR max P.3 mmHg PA V2 max: 112.7 cm/sec Med Peak E' Hever: 10.8 cm/sec PA max P.1 mmHg Med E/e': 6.8 Lat Peak E' Hever: 10.8 cm/sec Lat E/e': 6.8 Procedure A two-dimensional transthoracic echocardiogram with color flow and Doppler was performed. The study w as technically difficult with many images being suboptimal in quality. Left Ventricle The left ventricular size, thickness and function are normal. The left ventricular ejection fraction is normal. Regional wall motion abnormalities cannot be excluded due to limited visualization. Right Ventricle The right ventricle is not well visualized. Atria Normal left and right atrial size and function. Mitral Valve The mitral valve is not well visualized. There is no mitral valve stenosis. There is trace to mild mi tral regurgitation. Tricuspid Valve The tricuspid valve is not well visualized. There is no tricuspid stenosis. There is mild tricuspid regurgitation. Right ventricular systolic pressure is normal. Aortic Valve The aortic valve is not well visualized. No hemodynamically significant valvular aortic stenosis. No aortic regurgitation is present. Pulmonic Valve The pulmonic valve is not well visualized. Great Vessels The aortic root is normal size. Pericardium/Pleura There is no pericardial effusion. Interpretation Summary The left ventricular size, thickness and function are normal The left ventricular ejection fraction is normal. There is trace to mild mitral regurgitation. Regional wall motion abnormalities cannot be excluded due to limited visualization. The study was technically difficult with many images being suboptimal in quality. There is mild tricuspid regurgitation. Right ventricular systolic pressure is normal. MD Jairon Pratt 06/12/2019 04:04 PM
--- NOTE | 2019-06-12 18:12 | PN ---
Physical Exam: SUBJECTIVE: Patient seen and examined. She reports feeling much better after being given IV fluids and supplements and is requesting diet. She does not have chest pain, dizziness, nausea, vomiting, or abdominal pain. OBJECTIVE: Vital Signs Period Temp Pulse Resp BP Sys/Clifford Pulse Ox Last 24 Hr 97.7 F-99.0 F 98-144 15-22 123-137/67-97 97-100 GENERAL: The patient is awake, alert, and fully oriented, in no acute distress. HEAD: Normal with no signs of trauma. EYES: PERRL, extraocular movements intact, icteric sclera, conjunctiva clear. No ptosis. ENT: Ears normal, nares patent, moist mucous membranes. NECK: Trachea midline, full range of motion, supple. LUNGS: Breath sounds equal, clear to auscultation bilaterally, no wheezes, no crackles, no accessory muscle use. HEART: Regular rate and rhythm, S1, S2 without murmur, rub or gallop. ABDOMEN: Soft, nontender, nondistended, normoactive bowel sounds, no guarding EXTREMITIES: 2+ pulses, warm, well-perfused, no edema. Strength and sensation intact in all 4 extremities. Tremors present in upper extremities. NEUROLOGICAL: Cranial nerves II through XII grossly intact. Normal speech, gait not observed. PSYCH: Normal mood, normal affect. SKIN: Warm, dry, normal turgor, no rashes or lesions noted. Face mildly jaundiced. Laboratory Results - last 24 hr 06/11/19 06/11/19 06/11/19 21:38 21:40 21:40 WBC 5.3 RBC 3.17 L Hgb 12.6 Hct 36.2 MCV 114.0 H MCH 39.9 H MCHC 35.0 RDW 15.4 Plt Count 105 L MPV 9.6 Absolute Neuts (auto) 4.3 Neutrophils % 80.2 Lymphocytes % 12.6 Monocytes % 6.7 Eosinophils % 0.1 Basophils % 0.4 Nucleated RBC % 0 Platelet Estimate Slt decrease Anisocytosis 1+ Stomatocytes 1+ PT with INR INR PTT (Actin FS) Anticoagulation Therapy Puncture Site ABG pH ABG pCO2 at Pt Temp ABG pO2 at Pt Temp ABG HCO3 ABG O2 Sat (Measured) ABG O2 Content ABG Base Excess Bipin Test Carboxyhemoglobin Methemoglobin O2 Delivery Device Oxygen Flow Rate Vent Mode Vent Rate Mechanical Rate Pressure Support Vent Sodium Potassium Chloride Carbon Dioxide Anion Gap BUN Creatinine Est GFR (CKD-EPI)AfAm Est GFR (CKD-EPI)NonAf POC Glucometer Random Glucose Serum Osmolality Lactic Acid 4.8 H* Calcium Phosphorus Magnesium Total Bilirubin AST ALT Alkaline Phosphatase Ammonia Creatine Kinase 96 Troponin I < 0.02 Total Protein Albumin Lipase Urine Color Urine Appearance Urine pH Ur Specific Pingree Urine Protein Urine Glucose (UA) Urine Ketones Urine Blood Urine Nitrite Urine Bilirubin Urine Urobilinogen Ur Leukocyte Esterase Urine RBC (Auto) Urine HCG, Qual Opiates Screen Methadone Screen Acetaminophen Barbiturate Screen Phencyclidine Screen Ur Amphetamines Screen MDMA (Ecstasy) Screen Benzodiazepines Screen Cocaine Screen U Marijuana (THC) Screen Alcohol, Quantitative HIV 1&2 Antibody Screen HIV P24 Antigen 06/11/19 06/11/19 06/11/19 21:40 21:40 21:40 WBC RBC Hgb Hct MCV MCH MCHC RDW Plt Count MPV Absolute Neuts (auto) Neutrophils % Lymphocytes % Monocytes % Eosinophils % Basophils % Nucleated RBC % Platelet Estimate Anisocytosis Stomatocytes PT with INR 15.10 H INR 1.28 H PTT (Actin FS) Anticoagulation Therapy Puncture Site ABG pH ABG pCO2 at Pt Temp ABG pO2 at Pt Temp ABG HCO3 ABG O2 Sat (Measured) ABG O2 Content ABG Base Excess Bipin Test Carboxyhemoglobin Methemoglobin O2 Delivery Device Oxygen Flow Rate Vent Mode Vent Rate Mechanical Rate Pressure Support Vent Sodium 128 L Potassium 2.3 L* Chloride 81 L Carbon Dioxide 22 Anion Gap 25 H BUN 3.5 L Creatinine 1.4 H Est GFR (CKD-EPI)AfAm 52.09 Est GFR (CKD-EPI)NonAf 44.95 POC Glucometer Random Glucose 145 H Serum Osmolality Lactic Acid Calcium 9.8 Phosphorus Magnesium 1.2 L Total Bilirubin 6.5 H AST 277 H ALT 117 H Alkaline Phosphatase 198 H Ammonia Creatine Kinase Troponin I Total Protein 8.5 H Albumin 4.4 Lipase 1229 H Urine Color Urine Appearance Urine pH Ur Specific Pingree Urine Protein Urine Glucose (UA) Urine Ketones Urine Blood Urine Nitrite Urine Bilirubin Urine Urobilinogen Ur Leukocyte Esterase Urine RBC (Auto) Urine HCG, Qual Opiates Screen Methadone Screen Acetaminophen Barbiturate Screen Phencyclidine Screen Ur Amphetamines Screen MDMA (Ecstasy) Screen Benzodiazepines Screen Cocaine Screen U Marijuana (THC) Screen Alcohol, Quantitative < 3.0 HIV 1&2 Antibody Screen HIV P24 Antigen 06/11/19 06/11/19 06/11/19 21:40 21:40 21:40 WBC RBC Hgb Hct MCV MCH MCHC RDW Plt Count MPV Absolute Neuts (auto) Neutrophils % Lymphocytes % Monocytes % Eosinophils % Basophils % Nucleated RBC % Platelet Estimate Anisocytosis Stomatocytes PT with INR INR PTT (Actin FS) Anticoagulation Therapy Puncture Site ABG pH ABG pCO2 at Pt Temp ABG pO2 at Pt Temp ABG HCO3 ABG O2 Sat (Measured) ABG O2 Content ABG Base Excess Bipin Test Carboxyhemoglobin Methemoglobin O2 Delivery Device Oxygen Flow Rate Vent Mode Vent Rate Mechanical Rate Pressure Support Vent Sodium Potassium Chloride Carbon Dioxide Anion Gap BUN Creatinine Est GFR (CKD-EPI)AfAm Est GFR (CKD-EPI)NonAf POC Glucometer Random Glucose Serum Osmolality Lactic Acid Calcium Phosphorus Magnesium Total Bilirubin AST ALT Alkaline Phosphatase Ammonia Creatine Kinase Troponin I Total Protein Albumin Lipase Urine Color Yellow Urine Appearance Clear Urine pH 6.0 Ur Specific Pingree 1.025 Urine Protein 2+ H Urine Glucose (UA) Trace Urine Ketones 4+ H Urine Blood Trace-lysed Urine Nitrite Negative Urine Bilirubin 3+ H Urine Urobilinogen >=8.0 e.u./dl H Ur Leukocyte Esterase 1+ H Urine RBC (Auto) Ring Conductor Urine HCG, Qual Negative Opiates Screen Negative Methadone Screen Negative Acetaminophen Barbiturate Screen Negative Phencyclidine Screen Negative Ur Amphetamines Screen Negative MDMA (Ecstasy) Screen Negative Benzodiazepines Screen Positive A* Cocaine Screen Negative U Marijuana (THC) Screen Negative Alcohol, Quantitative HIV 1&2 Antibody Screen HIV P24 Antigen 06/11/19 06/12/19 06/12/19 21:40 00:45 06:35 WBC RBC Hgb Hct MCV MCH MCHC RDW Plt Count MPV Absolute Neuts (auto) Neutrophils % Lymphocytes % Monocytes % Eosinophils % Basophils % Nucleated RBC % Platelet Estimate Anisocytosis Stomatocytes PT with INR INR PTT (Actin FS) Anticoagulation Therapy No Result Required. Puncture Site Right brachial ABG pH 7.47 H ABG pCO2 at Pt Temp 33.8 L ABG pO2 at Pt Temp 88.1 ABG HCO3 24.5 ABG O2 Sat (Measured) 98.2 H ABG O2 Content 12.0 ABG Base Excess 1.4 Bipin Test No Result Required. Carboxyhemoglobin 2.8 H Methemoglobin < 1.0 O2 Delivery Device Room air Oxygen Flow Rate 21 Vent Mode No Result Required. Vent Rate No Result Required. Mechanical Rate No Result Required. Pressure Support Vent No Result Required. Sodium Potassium Chloride Carbon Dioxide Anion Gap BUN Creatinine Est GFR (CKD-EPI)AfAm Est GFR (CKD-EPI)NonAf POC Glucometer Random Glucose Serum Osmolality Lactic Acid 1.6 Calcium Phosphorus Magnesium Total Bilirubin AST ALT Alkaline Phosphatase Ammonia 66.10 H Creatine Kinase Troponin I Total Protein Albumin Lipase Urine Color Urine Appearance Urine pH Ur Specific Pingree Urine Protein Urine Glucose (UA) Urine Ketones Urine Blood Urine Nitrite Urine Bilirubin Urine Urobilinogen Ur Leukocyte Esterase Urine RBC (Auto) Urine HCG, Qual Opiates Screen Methadone Screen Acetaminophen Barbiturate Screen Phencyclidine Screen Ur Amphetamines Screen MDMA (Ecstasy) Screen Benzodiazepines Screen Cocaine Screen U Marijuana (THC) Screen Alcohol, Quantitative HIV 1&2 Antibody Screen HIV P24 Antigen 06/12/19 06/12/19 06/12/19 06:36 06:36 06:36 WBC 3.4 L RBC 2.34 L Hgb 9.5 L Hct 26.8 L D MCV 114.6 H MCH 40.5 H MCHC 35.4 RDW 15.6 Plt Count 60 L D MPV 9.6 Absolute Neuts (auto) 2.3 Neutrophils % 66.1 Lymphocytes % 24.2 D Monocytes % 8.8 Eosinophils % 0.2 D Basophils % 0.7 Nucleated RBC % 0 Platelet Estimate Anisocytosis Stomatocytes PT with INR 14.70 H INR 1.24 H PTT (Actin FS) 31.7 Anticoagulation Therapy Puncture Site ABG pH ABG pCO2 at Pt Temp ABG pO2 at Pt Temp ABG HCO3 ABG O2 Sat (Measured) ABG O2 Content ABG Base Excess Bipin Test Carboxyhemoglobin Methemoglobin O2 Delivery Device Oxygen Flow Rate Vent Mode Vent Rate Mechanical Rate Pressure Support Vent Sodium 135 L Potassium 2.4 L* Chloride 93 L Carbon Dioxide 26 Anion Gap 16 BUN 1.4 L* Creatinine 0.8 Est GFR (CKD-EPI)AfAm 102.47 Est GFR (CKD-EPI)NonAf 88.41 POC Glucometer Random Glucose 65 L Serum Osmolality Lactic Acid Calcium 8.2 L Phosphorus 0.2 L* Magnesium 1.6 L Total Bilirubin 4.4 H D AST 172 H ALT 79 H Alkaline Phosphatase 130 H Ammonia Creatine Kinase Troponin I Total Protein 6.2 L Albumin 3.1 L Lipase Urine Color Urine Appearance Urine pH Ur Specific Pingree Urine Protein Urine Glucose (UA) Urine Ketones Urine Blood Urine Nitrite Urine Bilirubin Urine Urobilinogen Ur Leukocyte Esterase Urine RBC (Auto) Urine HCG, Qual Opiates Screen Methadone Screen Acetaminophen Barbiturate Screen Phencyclidine Screen Ur Amphetamines Screen MDMA (Ecstasy) Screen Benzodiazepines Screen Cocaine Screen U Marijuana (THC) Screen Alcohol, Quantitative HIV 1&2 Antibody Screen HIV P24 Antigen 06/12/19 06/12/19 06/12/19 08:00 08:00 08:00 WBC RBC Hgb Hct MCV MCH MCHC RDW Plt Count MPV Absolute Neuts (auto) Neutrophils % Lymphocytes % Monocytes % Eosinophils % Basophils % Nucleated RBC % Platelet Estimate Anisocytosis Stomatocytes PT with INR INR PTT (Actin FS) Anticoagulation Therapy Puncture Site ABG pH ABG pCO2 at Pt Temp ABG pO2 at Pt Temp ABG HCO3 ABG O2 Sat (Measured) ABG O2 Content ABG Base Excess Bipin Test Carboxyhemoglobin Methemoglobin O2 Delivery Device Oxygen Flow Rate Vent Mode Vent Rate Mechanical Rate Pressure Support Vent Sodium 135 L Potassium 2.4 L* Chloride 94 L Carbon Dioxide 25 Anion Gap 17 H BUN Creatinine Est GFR (CKD-EPI)AfAm Est GFR (CKD-EPI)NonAf POC Glucometer Random Glucose Serum Osmolality 288 Lactic Acid Calcium Phosphorus Magnesium Total Bilirubin AST ALT Alkaline Phosphatase Ammonia Creatine Kinase Troponin I < 0.02 Total Protein Albumin Lipase Urine Color Urine Appearance Urine pH Ur Specific Pingree Urine Protein Urine Glucose (UA) Urine Ketones Urine Blood Urine Nitrite Urine Bilirubin Urine Urobilinogen Ur Leukocyte Esterase Urine RBC (Auto) Urine HCG, Qual Opiates Screen Methadone Screen Acetaminophen --noresult-- Barbiturate Screen Phencyclidine Screen Ur Amphetamines Screen MDMA (Ecstasy) Screen Benzodiazepines Screen Cocaine Screen U Marijuana (THC) Screen Alcohol, Quantitative HIV 1&2 Antibody Screen Negative HIV P24 Antigen Negative 06/12/19 06/12/19 13:07 14:53 WBC RBC Hgb Hct MCV MCH MCHC RDW Plt Count MPV Absolute Neuts (auto) Neutrophils % Lymphocytes % Monocytes % Eosinophils % Basophils % Nucleated RBC % Platelet Estimate Anisocytosis Stomatocytes PT with INR INR PTT (Actin FS) Anticoagulation Therapy Puncture Site ABG pH ABG pCO2 at Pt Temp ABG pO2 at Pt Temp ABG HCO3 ABG O2 Sat (Measured) ABG O2 Content ABG Base Excess Bipin Test Carboxyhemoglobin Methemoglobin O2 Delivery Device Oxygen Flow Rate Vent Mode Vent Rate Mechanical Rate Pressure Support Vent Sodium 136 Potassium 3.0 L Chloride 97 L Carbon Dioxide 25 Anion Gap 15 BUN 1.6 L* Creatinine 0.7 Est GFR (CKD-EPI)AfAm 120.43 Est GFR (CKD-EPI)NonAf 103.90 POC Glucometer 71 Random Glucose 64 L Serum Osmolality Lactic Acid Calcium 7.9 L Phosphorus < 0.1 L* Magnesium Total Bilirubin AST ALT Alkaline Phosphatase Ammonia Creatine Kinase Troponin I Total Protein Albumin Lipase Urine Color Urine Appearance Urine pH Ur Specific Pingree Urine Protein Urine Glucose (UA) Urine Ketones Urine Blood Urine Nitrite Urine Bilirubin Urine Urobilinogen Ur Leukocyte Esterase Urine RBC (Auto) Urine HCG, Qual Opiates Screen Methadone Screen Acetaminophen Barbiturate Screen Phencyclidine Screen Ur Amphetamines Screen MDMA (Ecstasy) Screen Benzodiazepines Screen Cocaine Screen U Marijuana (THC) Screen Alcohol, Quantitative HIV 1&2 Antibody Screen HIV P24 Antigen Active Medications Generic Name Dose Route Start Last Admin Trade Name Freq PRN Reason Stop Dose Admin Emollient Ointment 1 applic 06/12/19 10:00 06/12/19 09:09 Aquaphor - TP Not Given DAILY LUCAS Folic Acid 1 mg 06/12/19 10:00 06/12/19 09:09 Folic Acid - PO 1 mg DAILY LUCAS Administration Potassium Chloride 20 meq/ 1,010 mls @ 200 mls/hr 06/12/19 03:00 06/12/19 04: 00 Sodium Chloride IVPB 200 mls/hr ASDIR LUCAS Administration Potassium Phosphate 45 mm/ 265 mls @ 62.5 mls/hr 06/12/19 15:55 Sodium Chloride IVPB 06/12/19 20:09 ONCE ONE Lorazepam 2 mg 06/12/19 04:15 Ativan Injection - IVPUSH Q2H PRN ANXIETY Lorazepam 0.5 mg 06/15/19 05:00 Ativan - PO 06/15/19 23:01 Q6H LUCAS Lorazepam 0.5 mg 06/15/19 00:00 Ativan - PO 06/16/19 00:00 Q4H PRN Symptoms of Withdrawal Lorazepam 0.5 mg 06/16/19 05:00 Ativan - PO 06/16/19 05:01 ONCE ONE Lorazepam 1 mg 06/14/19 05:00 Ativan - PO 06/14/19 23:01 0500,1100,1700,2300 ULCAS Lorazepam 1 mg 06/12/19 11:16 Ativan - PO 06/14/19 23:59 Q4H PRN Symptoms of Withdrawal Multivitamins/Minerals/Vitamin C 1 tab 06/12/19 10:00 06/12/19 10:55 Tab-A-Vit - PO 1 tab DAILY LUCAS Administration Pantoprazole Sodium 40 mg 06/12/19 10:00 06/12/19 09:09 Protonix Iv IVPUSH 40 mg DAILY LUCAS Administration Potassium Phos/Sodium Phos 1 packet 06/12/19 14:00 06/12/19 14:52 Phos-Nak Packet - PO 1 packet TID LUCAS Administration Senna 2 tab 06/12/19 03:04 06/12/19 04:00 Senna - PO 2 tab HS LUCAS Administration Thiamine HCl 100 mg 06/12/19 10:00 06/12/19 09:09 Vitamin B1 - PO 100 mg DAILY LUCAS Administration ASSESSMENT/PLAN: Ms. Dutton is a 44 y/o female with alcohol use disorder and eczema presenting from home due to weakness and vomiting following stopping alcohol use approximately 1 week ago. #acute alcoholic hepatitis 2/2 chronic EtOH use Possibly also resolving pancreatitis. CT shows liver steatosis and no abdominal pain but elevated lipase 1229. T bili 6.5. Discriminant score not necessitating steroid use at this time. -clear liquids, restart slowly to avoid refeeding syndrome -NS 200mL/hr, lungs clear on exam -IV Zofran for nausea PRN -F/u hepatitis panels, HIV (consent verbally obtained from patient) #alcohol use disorder -Ativan taper -vitamins -hydration #syncope likely 2/2 hypotension and dehydration Echo normal EF, trace to mild MR, mild TR, cannot r/o wall motion abnormalities due to technically difficult study. Trops negative x 2. -Monitor on tele #high anion gap metabolic acidosis likely 2/2 heavy alcohol use lactic acid 4.8-->1.6 #hypokalemia 2.3 at admission -replete -BMP Q4 #hypophosphatemia 0.2 at admission -replete -check Q4 #hypomagnesemia 1.2 at admission -replete -recheck in morning #transaminitis 2/2 alcohol use -monitor for continued downtrend #GANESH Cr 1.4 no baseline #constipation, resolved Senna given with relief #macrocytosis 2/2 alcohol use MCV 114 #Eczema -aquaphor #FEN NS 100mL/hr close monitoring of potassium, magnesium, and phosphate, replete as necessary clear liquids GI ppx protonix 40mg #DVT ppx SCDs Dispo Tele Visit type - Emergency Visit Emergency Visit: Yes ED Registration Date: 06/12/19 Care time: The patient presented to the Emergency Department on the above date and was hospitalized for further evaluation of their emergent condition. - New Patient This patient is new to me today: Yes Date on this admission: 06/12/19 - Critical Care Critical Care patient: No - Discharge Referral Referred to [id number] No ATTENDING PHYSICIAN STATEMENT I saw and evaluated the patient. I reviewed the resident's note and discussed the case with the resident. I agree with the resident's findings and plan as documented. SUBJECTIVE: OBJECTIVE: ASSESSMENT AND PLAN:
--- NOTE | 2019-06-12 18:29 | PN ---
Teaching Attending Note Name of Resident: Demetria Fatima ATTENDING PHYSICIAN STATEMENT I saw and evaluated the patient. I reviewed the resident's note and discussed the case with the resident. I agree with the resident's findings and plan as documented. SUBJECTIVE: Patient seen and examined at bedside. Patient is feeling much better than this morning. Has an appetite and denies cp, sob, palpitations, nvd. No other complaints. OBJECTIVE: Vital Signs Period Temp Pulse Resp BP Sys/Clifford Pulse Ox Last 24 Hr 97.7 F-99.0 F 98-144 15-22 123-137/67-97 97-100 PHYSICAL EXAM: General: tremulous, nad, emaciated HEENT: scleral icterus, edematous face CVS: s1s2, tachycardic Lungs: CTA bl, unlabored Abdomen: ntnd, soft, nabs Ext: thin, no edema Current Medications Generic Name Dose Route Start Last Admin Trade Name Freq PRN Reason Stop Dose Admin Emollient Ointment 1 applic 06/12/19 10:00 06/12/19 09:09 Aquaphor - TP Not Given DAILY LUCAS Folic Acid 1 mg 06/12/19 10:00 06/12/19 09:09 Folic Acid - PO 1 mg DAILY LUCAS Administration Potassium Chloride 20 meq/ 1,010 mls @ 200 mls/hr 06/12/19 03:00 06/12/19 04: 00 Sodium Chloride IVPB 200 mls/hr ASDIR LUCAS Administration Potassium Phosphate 45 mm/ 265 mls @ 62.5 mls/hr 06/12/19 15:55 Sodium Chloride IVPB 06/12/19 20:09 ONCE ONE Lorazepam 2 mg 06/12/19 04:15 Ativan Injection - IVPUSH Q2H PRN ANXIETY Lorazepam 0.5 mg 06/15/19 05:00 Ativan - PO 06/15/19 23:01 Q6H LUCAS Lorazepam 0.5 mg 06/15/19 00:00 Ativan - PO 06/16/19 00:00 Q4H PRN Symptoms of Withdrawal Lorazepam 0.5 mg 06/16/19 05:00 Ativan - PO 06/16/19 05:01 ONCE ONE Lorazepam 1 mg 06/14/19 05:00 Ativan - PO 06/14/19 23:01 0500,1100,1700,2300 LUCAS Lorazepam 1 mg 06/12/19 11:16 Ativan - PO 06/14/19 23:59 Q4H PRN Symptoms of Withdrawal Multivitamins/Minerals/Vitamin C 1 tab 06/12/19 10:00 06/12/19 10:55 Tab-A-Vit - PO 1 tab DAILY LUCAS Administration Pantoprazole Sodium 40 mg 06/12/19 10:00 06/12/19 09:09 Protonix Iv IVPUSH 40 mg DAILY LUCAS Administration Potassium Phos/Sodium Phos 1 packet 06/12/19 14:00 06/12/19 14:52 Phos-Nak Packet - PO 1 packet TID LUCAS Administration Senna 2 tab 06/12/19 03:04 06/12/19 04:00 Senna - PO 2 tab HS LUCAS Administration Thiamine HCl 100 mg 06/12/19 10:00 06/12/19 09:09 Vitamin B1 - PO 100 mg DAILY LUCAS Administration Laboratory Results - last 24 hr 06/11/19 06/11/19 06/11/19 21:38 21:40 21:40 WBC 5.3 RBC 3.17 L Hgb 12.6 Hct 36.2 MCV 114.0 H MCH 39.9 H MCHC 35.0 RDW 15.4 Plt Count 105 L MPV 9.6 Absolute Neuts (auto) 4.3 Neutrophils % 80.2 Lymphocytes % 12.6 Monocytes % 6.7 Eosinophils % 0.1 Basophils % 0.4 Nucleated RBC % 0 Platelet Estimate Slt decrease Anisocytosis 1+ Stomatocytes 1+ PT with INR INR PTT (Actin FS) Anticoagulation Therapy Puncture Site ABG pH ABG pCO2 at Pt Temp ABG pO2 at Pt Temp ABG HCO3 ABG O2 Sat (Measured) ABG O2 Content ABG Base Excess Bipin Test Carboxyhemoglobin Methemoglobin O2 Delivery Device Oxygen Flow Rate Vent Mode Vent Rate Mechanical Rate Pressure Support Vent Sodium Potassium Chloride Carbon Dioxide Anion Gap BUN Creatinine Est GFR (CKD-EPI)AfAm Est GFR (CKD-EPI)NonAf POC Glucometer Random Glucose Serum Osmolality Lactic Acid 4.8 H* Calcium Phosphorus Magnesium Total Bilirubin AST ALT Alkaline Phosphatase Ammonia Creatine Kinase 96 Troponin I < 0.02 Total Protein Albumin Lipase Urine Color Urine Appearance Urine pH Ur Specific [place] Urine Protein Urine Glucose (UA) Urine Ketones Urine Blood Urine Nitrite Urine Bilirubin Urine Urobilinogen Ur Leukocyte Esterase Urine RBC (Auto) Urine HCG, Qual Opiates Screen Methadone Screen Acetaminophen Barbiturate Screen Phencyclidine Screen Ur Amphetamines Screen MDMA (Ecstasy) Screen Benzodiazepines Screen Cocaine Screen U Marijuana (THC) Screen Alcohol, Quantitative HIV 1&2 Antibody Screen HIV P24 Antigen 06/11/19 06/11/19 06/11/19 21:40 21:40 21:40 WBC RBC Hgb Hct MCV MCH MCHC RDW Plt Count MPV Absolute Neuts (auto) Neutrophils % Lymphocytes % Monocytes % Eosinophils % Basophils % Nucleated RBC % Platelet Estimate Anisocytosis Stomatocytes PT with INR 15.10 H INR 1.28 H PTT (Actin FS) Anticoagulation Therapy Puncture Site ABG pH ABG pCO2 at Pt Temp ABG pO2 at Pt Temp ABG HCO3 ABG O2 Sat (Measured) ABG O2 Content ABG Base Excess Bipin Test Carboxyhemoglobin Methemoglobin O2 Delivery Device Oxygen Flow Rate Vent Mode Vent Rate Mechanical Rate Pressure Support Vent Sodium 128 L Potassium 2.3 L* Chloride 81 L Carbon Dioxide 22 Anion Gap 25 H BUN 3.5 L Creatinine 1.4 H Est GFR (CKD-EPI)AfAm 52.09 Est GFR (CKD-EPI)NonAf 44.95 POC Glucometer Random Glucose 145 H Serum Osmolality Lactic Acid Calcium 9.8 Phosphorus Magnesium 1.2 L Total Bilirubin 6.5 H AST 277 H ALT 117 H Alkaline Phosphatase 198 H Ammonia Creatine Kinase Troponin I Total Protein 8.5 H Albumin 4.4 Lipase 1229 H Urine Color Urine Appearance Urine pH Ur Specific [place] Urine Protein Urine Glucose (UA) Urine Ketones Urine Blood Urine Nitrite Urine Bilirubin Urine Urobilinogen Ur Leukocyte Esterase Urine RBC (Auto) Urine HCG, Qual Opiates Screen Methadone Screen Acetaminophen Barbiturate Screen Phencyclidine Screen Ur Amphetamines Screen MDMA (Ecstasy) Screen Benzodiazepines Screen Cocaine Screen U Marijuana (THC) Screen Alcohol, Quantitative < 3.0 HIV 1&2 Antibody Screen HIV P24 Antigen 06/11/19 06/11/19 06/11/19 21:40 21:40 21:40 WBC RBC Hgb Hct MCV MCH MCHC RDW Plt Count MPV Absolute Neuts (auto) Neutrophils % Lymphocytes % Monocytes % Eosinophils % Basophils % Nucleated RBC % Platelet Estimate Anisocytosis Stomatocytes PT with INR INR PTT (Actin FS) Anticoagulation Therapy Puncture Site ABG pH ABG pCO2 at Pt Temp ABG pO2 at Pt Temp ABG HCO3 ABG O2 Sat (Measured) ABG O2 Content ABG Base Excess Bipin Test Carboxyhemoglobin Methemoglobin O2 Delivery Device Oxygen Flow Rate Vent Mode Vent Rate Mechanical Rate Pressure Support Vent Sodium Potassium Chloride Carbon Dioxide Anion Gap BUN Creatinine Est GFR (CKD-EPI)AfAm Est GFR (CKD-EPI)NonAf POC Glucometer Random Glucose Serum Osmolality Lactic Acid Calcium Phosphorus Magnesium Total Bilirubin AST ALT Alkaline Phosphatase Ammonia Creatine Kinase Troponin I Total Protein Albumin Lipase Urine Color Yellow Urine Appearance Clear Urine pH 6.0 Ur Specific [place] 1.025 Urine Protein 2+ H Urine Glucose (UA) Trace Urine Ketones 4+ H Urine Blood Trace-lysed Urine Nitrite Negative Urine Bilirubin 3+ H Urine Urobilinogen >=8.0 e.u./dl H Ur Leukocyte Esterase 1+ H Urine RBC (Auto) License And Permit Specialist Urine HCG, Qual Negative Opiates Screen Negative Methadone Screen Negative Acetaminophen Barbiturate Screen Negative Phencyclidine Screen Negative Ur Amphetamines Screen Negative MDMA (Ecstasy) Screen Negative Benzodiazepines Screen Positive A* Cocaine Screen Negative U Marijuana (THC) Screen Negative Alcohol, Quantitative HIV 1&2 Antibody Screen HIV P24 Antigen 06/11/19 06/12/19 06/12/19 21:40 00:45 06:35 WBC RBC Hgb Hct MCV MCH MCHC RDW Plt Count MPV Absolute Neuts (auto) Neutrophils % Lymphocytes % Monocytes % Eosinophils % Basophils % Nucleated RBC % Platelet Estimate Anisocytosis Stomatocytes PT with INR INR PTT (Actin FS) Anticoagulation Therapy No Result Required. Puncture Site Right brachial ABG pH 7.47 H ABG pCO2 at Pt Temp 33.8 L ABG pO2 at Pt Temp 88.1 ABG HCO3 24.5 ABG O2 Sat (Measured) 98.2 H ABG O2 Content 12.0 ABG Base Excess 1.4 Bipin Test No Result Required. Carboxyhemoglobin 2.8 H Methemoglobin < 1.0 O2 Delivery Device Room air Oxygen Flow Rate 21 Vent Mode No Result Required. Vent Rate No Result Required. Mechanical Rate No Result Required. Pressure Support Vent No Result Required. Sodium Potassium Chloride Carbon Dioxide Anion Gap BUN Creatinine Est GFR (CKD-EPI)AfAm Est GFR (CKD-EPI)NonAf POC Glucometer Random Glucose Serum Osmolality Lactic Acid 1.6 Calcium Phosphorus Magnesium Total Bilirubin AST ALT Alkaline Phosphatase Ammonia 66.10 H Creatine Kinase Troponin I Total Protein Albumin Lipase Urine Color Urine Appearance Urine pH Ur Specific [place] Urine Protein Urine Glucose (UA) Urine Ketones Urine Blood Urine Nitrite Urine Bilirubin Urine Urobilinogen Ur Leukocyte Esterase Urine RBC (Auto) Urine HCG, Qual Opiates Screen Methadone Screen Acetaminophen Barbiturate Screen Phencyclidine Screen Ur Amphetamines Screen MDMA (Ecstasy) Screen Benzodiazepines Screen Cocaine Screen U Marijuana (THC) Screen Alcohol, Quantitative HIV 1&2 Antibody Screen HIV P24 Antigen 06/12/19 06/12/19 06/12/19 06:36 06:36 06:36 WBC 3.4 L RBC 2.34 L Hgb 9.5 L Hct 26.8 L D MCV 114.6 H MCH 40.5 H MCHC 35.4 RDW 15.6 Plt Count 60 L D MPV 9.6 Absolute Neuts (auto) 2.3 Neutrophils % 66.1 Lymphocytes % 24.2 D Monocytes % 8.8 Eosinophils % 0.2 D Basophils % 0.7 Nucleated RBC % 0 Platelet Estimate Anisocytosis Stomatocytes PT with INR 14.70 H INR 1.24 H PTT (Actin FS) 31.7 Anticoagulation Therapy Puncture Site ABG pH ABG pCO2 at Pt Temp ABG pO2 at Pt Temp ABG HCO3 ABG O2 Sat (Measured) ABG O2 Content ABG Base Excess Bipin Test Carboxyhemoglobin Methemoglobin O2 Delivery Device Oxygen Flow Rate Vent Mode Vent Rate Mechanical Rate Pressure Support Vent Sodium 135 L Potassium 2.4 L* Chloride 93 L Carbon Dioxide 26 Anion Gap 16 BUN 1.4 L* Creatinine 0.8 Est GFR (CKD-EPI)AfAm 102.47 Est GFR (CKD-EPI)NonAf 88.41 POC Glucometer Random Glucose 65 L Serum Osmolality Lactic Acid Calcium 8.2 L Phosphorus 0.2 L* Magnesium 1.6 L Total Bilirubin 4.4 H D AST 172 H ALT 79 H Alkaline Phosphatase 130 H Ammonia Creatine Kinase Troponin I Total Protein 6.2 L Albumin 3.1 L Lipase Urine Color Urine Appearance Urine pH Ur Specific [place] Urine Protein Urine Glucose (UA) Urine Ketones Urine Blood Urine Nitrite Urine Bilirubin Urine Urobilinogen Ur Leukocyte Esterase Urine RBC (Auto) Urine HCG, Qual Opiates Screen Methadone Screen Acetaminophen Barbiturate Screen Phencyclidine Screen Ur Amphetamines Screen MDMA (Ecstasy) Screen Benzodiazepines Screen Cocaine Screen U Marijuana (THC) Screen Alcohol, Quantitative HIV 1&2 Antibody Screen HIV P24 Antigen 06/12/19 06/12/19 06/12/19 08:00 08:00 08:00 WBC RBC Hgb Hct MCV MCH MCHC RDW Plt Count MPV Absolute Neuts (auto) Neutrophils % Lymphocytes % Monocytes % Eosinophils % Basophils % Nucleated RBC % Platelet Estimate Anisocytosis Stomatocytes PT with INR INR PTT (Actin FS) Anticoagulation Therapy Puncture Site ABG pH ABG pCO2 at Pt Temp ABG pO2 at Pt Temp ABG HCO3 ABG O2 Sat (Measured) ABG O2 Content ABG Base Excess Bipin Test Carboxyhemoglobin Methemoglobin O2 Delivery Device Oxygen Flow Rate Vent Mode Vent Rate Mechanical Rate Pressure Support Vent Sodium 135 L Potassium 2.4 L* Chloride 94 L Carbon Dioxide 25 Anion Gap 17 H BUN Creatinine Est GFR (CKD-EPI)AfAm Est GFR (CKD-EPI)NonAf POC Glucometer Random Glucose Serum Osmolality 288 Lactic Acid Calcium Phosphorus Magnesium Total Bilirubin AST ALT Alkaline Phosphatase Ammonia Creatine Kinase Troponin I < 0.02 Total Protein Albumin Lipase Urine Color Urine Appearance Urine pH Ur Specific [place] Urine Protein Urine Glucose (UA) Urine Ketones Urine Blood Urine Nitrite Urine Bilirubin Urine Urobilinogen Ur Leukocyte Esterase Urine RBC (Auto) Urine HCG, Qual Opiates Screen Methadone Screen Acetaminophen --noresult-- Barbiturate Screen Phencyclidine Screen Ur Amphetamines Screen MDMA (Ecstasy) Screen Benzodiazepines Screen Cocaine Screen U Marijuana (THC) Screen Alcohol, Quantitative HIV 1&2 Antibody Screen Negative HIV P24 Antigen Negative 06/12/19 06/12/19 13:07 14:53 WBC RBC Hgb Hct MCV MCH MCHC RDW Plt Count MPV Absolute Neuts (auto) Neutrophils % Lymphocytes % Monocytes % Eosinophils % Basophils % Nucleated RBC % Platelet Estimate Anisocytosis Stomatocytes PT with INR INR PTT (Actin FS) Anticoagulation Therapy Puncture Site ABG pH ABG pCO2 at Pt Temp ABG pO2 at Pt Temp ABG HCO3 ABG O2 Sat (Measured) ABG O2 Content ABG Base Excess Bipin Test Carboxyhemoglobin Methemoglobin O2 Delivery Device Oxygen Flow Rate Vent Mode Vent Rate Mechanical Rate Pressure Support Vent Sodium 136 Potassium 3.0 L Chloride 97 L Carbon Dioxide 25 Anion Gap 15 BUN 1.6 L* Creatinine 0.7 Est GFR (CKD-EPI)AfAm 120.43 Est GFR (CKD-EPI)NonAf 103.90 POC Glucometer 71 Random Glucose 64 L Serum Osmolality Lactic Acid Calcium 7.9 L Phosphorus < 0.1 L* Magnesium Total Bilirubin AST ALT Alkaline Phosphatase Ammonia Creatine Kinase Troponin I Total Protein Albumin Lipase Urine Color Urine Appearance Urine pH Ur Specific [place] Urine Protein Urine Glucose (UA) Urine Ketones Urine Blood Urine Nitrite Urine Bilirubin Urine Urobilinogen Ur Leukocyte Esterase Urine RBC (Auto) Urine HCG, Qual Opiates Screen Methadone Screen Acetaminophen Barbiturate Screen Phencyclidine Screen Ur Amphetamines Screen MDMA (Ecstasy) Screen Benzodiazepines Screen Cocaine Screen U Marijuana (THC) Screen Alcohol, Quantitative HIV 1&2 Antibody Screen HIV P24 Antigen IMAGING REPORTS REVIEWED ASSESSMENT: Acute Alcoholic Hepatitis Chronic ETOH abuse Syncope secondary to volume depletion Severe electrolyte abnormalities, hypomag, hypophos, hypokalemia, hyponatremia Metabolic Acidosis PLAN : IV fluids CIWA protocol replete lytes, given IV mag, IV Kphos ordered, K improved, check labs Q4H slow feeding, clear liquids thiamine/folate no steroids indicated PPI monitor LFTs monitor on tele 2dechocardiogram wnl trops neg hep panel pending, HIV negative GI eval appreciated
[2019-06-12] MEDS ORDERED: POTASSIUM PHOSPHATE 45 MM in SODIUM CHLORIDE 500 ML IVPB ONE (19:00)
[2019-06-12 21:41] LABS: ALBUMIN 3.1 g/dl (3.4-5.0); BILIRUBIN,TOTAL 4.9 mg/dL (0.2-1); CALCIUM 8.3 mg/dL (8.5-10.1); CREATININE 0.7 mg/dL (0.55-1.3); MAGNESIUM 1.7 mg/dL (1.8-2.4); TOT PROT 5.8 g/dl (6.4-8.2)
[2019-06-12 21:45] LABS: BLOOD UREA NITROGEN 2.1 mg/dL (7-18); PHOSPHOROUS 0.2 mg/dL (2.5-4.9); POTASSIUM 2.7 mmol/L (3.5-5.1)
[2019-06-13 04:21] LABS: CALCIUM 7.7 mg/dL (8.5-10.1); CREATININE 0.7 mg/dL (0.55-1.3); MAGNESIUM 1.8 mg/dL (1.8-2.4); PHOSPHOROUS 2.3 mg/dL (2.5-4.9)
[2019-06-13 05:40] LABS: BLOOD UREA NITROGEN 1.5 mg/dL (7-18)
[2019-06-13] MEDS: NAPH,MB-DB/K PH,MBDB POWDER PACKET PO SCH ×3 (05:50→21:56)
[2019-06-13] MEDS: SODIUM CHLORIDE 1,000 ML with POTASSIUM CHLORIDE 20 MEQ IVPB SCH (06:45)
[2019-06-13 07:32] LABS: BILIRUBIN,TOTAL 5.4 mg/dL (0.2-1); CALCIUM 7.6 mg/dL (8.5-10.1); CREATININE 0.6 mg/dL (0.55-1.3); MAGNESIUM 1.7 mg/dL (1.8-2.4); PHOSPHOROUS 3.1 mg/dL (2.5-4.9); TOT PROT 5.8 g/dl (6.4-8.2)
[2019-06-13 07:44] LABS: BLOOD UREA NITROGEN 1.2 mg/dL (7-18); POTASSIUM 2.9 mmol/L (3.5-5.1)
[2019-06-13] MEDS: PANTOPRAZOLE SODIUM 40 MG VIAL IVPUSH SCH (10:00)
[2019-06-13] MEDS: MULTIVITAMINS (DAILY MVI) TABLET (FP) PO SCH (10:00)
[2019-06-13] MEDS: FOLIC ACID 1 MG TABLET (FP) PO SCH (10:00)
[2019-06-13] MEDS: THIAMINE HCL 100 MG TABLET (FP) PO SCH (10:00)
[2019-06-13] MEDS: MINERAL OIL/PET HY-PHL TOPICAL OINTMENT 454 GM JAR TP SCH (10:18)
[2019-06-13 11:23] LABS: BASO % 0.9 % (0-2.0); EOS % 0.5 % (0-4.5); HEMATOCRIT 28.9 % (32.4-45.2); HEMOGLOBIN 9.9 GM/dL (10.7-15.3); LYMPH % 24.8 % (8-40); MCHC 34.3 g/dl (32.0-36.0); MEAN CELL VOLUME 116.8 fl (80-96); MEAN PLT VOLUME 9.3 fl (7.5-11.1); MONO % 9.7 % (3.8-10.2); NEUT % 64.1 % (42.8-82.8); PLATELET COUNT 65 K/MM3 (134-434); RBC 2.47 M/mm3 (3.60-5.2); RDW 16.1 % (11.6-15.6); WHITE BLOOD COUNT 3.7 K/mm3 (4.0-10.0)
[2019-06-13 11:25] LABS: MCH 40.1 pg (25.7-33.7)
[2019-06-13 11:33] LABS: INR 1.3 (0.83-1.09); PROTHROMBIN TIME (PATIENT) 15.4 SEC (9.7-13.0)
--- NOTE | 2019-06-13 12:45 | PN ---
Physical Exam: SUBJECTIVE: Patient seen and examined. She reports feeling much better than at presentation. Tolerating clear liquid diet. She denies fever, chills, nausea, vomiting, and diarrhea. OBJECTIVE: Vital Signs Period Temp Pulse Resp BP Sys/Clifford Pulse Ox Last 24 Hr 97.3 F-98.9 F 95-126 20-20 118-136/72-97 97-98 GENERAL: The patient is awake, alert, and fully oriented, in no acute distress. HEAD: Normal with no signs of trauma. EYES: PERRL, extraocular movements intact, icteric sclera, conjunctiva clear. No ptosis. ENT: Ears normal, nares patent, moist mucous membranes. NECK: Trachea midline, full range of motion, supple. LUNGS: Breath sounds equal, clear to auscultation bilaterally, no wheezes, no crackles, no accessory muscle use. HEART: Regular rate and rhythm, S1, S2 without murmur, rub or gallop. ABDOMEN: Soft, nontender, nondistended, normoactive bowel sounds, no guarding EXTREMITIES: 2+ pulses, warm, well-perfused, no edema. Strength and sensation intact in all 4 extremities. Mild tremors present in upper extremities. NEUROLOGICAL: Cranial nerves II through XII grossly intact. Normal speech, gait not observed. PSYCH: Normal mood, normal affect. SKIN: Warm, dry, normal turgor, no rashes or lesions noted. Laboratory Results - last 24 hr 06/12/19 06/12/19 06/12/19 13:07 14:53 20:00 WBC RBC Hgb Hct MCV MCH MCHC RDW Plt Count MPV Absolute Neuts (auto) Neutrophils % Lymphocytes % Monocytes % Eosinophils % Basophils % Nucleated RBC % PT with INR INR Sodium 136 136 Potassium 3.0 L 2.7 L* Chloride 97 L 95 L Carbon Dioxide 25 27 Anion Gap 15 14 BUN 1.6 L* 2.1 L* Creatinine 0.7 0.7 Est GFR (CKD-EPI)AfAm 120.43 120.43 Est GFR (CKD-EPI)NonAf 103.90 103.90 POC Glucometer 71 Random Glucose 64 L 73 L Calcium 7.9 L 8.3 L Phosphorus < 0.1 L* 0.2 L* Magnesium 1.7 L Total Bilirubin 4.9 H AST 189 H ALT 80 H Alkaline Phosphatase 127 H Total Protein 5.8 L Albumin 3.1 L Urine Osmolality 06/13/19 06/13/19 06/13/19 02:50 03:30 05:35 WBC RBC Hgb Hct MCV MCH MCHC RDW Plt Count MPV Absolute Neuts (auto) Neutrophils % Lymphocytes % Monocytes % Eosinophils % Basophils % Nucleated RBC % PT with INR INR Sodium 139 138 Potassium 3.0 L 2.9 L* Chloride 96 L 95 L Carbon Dioxide 29 28 Anion Gap 13 14 BUN 1.5 L* 1.2 L* Creatinine 0.7 0.6 Est GFR (CKD-EPI)AfAm 120.43 126.69 Est GFR (CKD-EPI)NonAf 103.90 109.31 POC Glucometer Random Glucose 79 84 Calcium 7.7 L 7.6 L Phosphorus 2.3 L 3.1 Magnesium 1.8 1.7 L Total Bilirubin 5.4 H AST 179 H ALT 80 H Alkaline Phosphatase 128 H Total Protein 5.8 L Albumin 3.0 L Urine Osmolality 390 06/13/19 06/13/19 10:42 10:42 WBC 3.7 L RBC 2.47 L Hgb 9.9 L Hct 28.9 L MCV 116.8 H MCH 40.1 H MCHC 34.3 RDW 16.1 H Plt Count 65 L MPV 9.3 Absolute Neuts (auto) 2.4 Neutrophils % 64.1 Lymphocytes % 24.8 Monocytes % 9.7 Eosinophils % 0.5 D Basophils % 0.9 Nucleated RBC % 0 PT with INR 15.40 H INR 1.30 H Sodium Potassium Chloride Carbon Dioxide Anion Gap BUN Creatinine Est GFR (CKD-EPI)AfAm Est GFR (CKD-EPI)NonAf POC Glucometer Random Glucose Calcium Phosphorus Magnesium Total Bilirubin AST ALT Alkaline Phosphatase Total Protein Albumin Urine Osmolality Active Medications Generic Name Dose Route Start Last Admin Trade Name Freq PRN Reason Stop Dose Admin Emollient Ointment 1 applic 06/12/19 10:00 06/12/19 09:09 Aquaphor - TP Not Given DAILY LUCAS Folic Acid 1 mg 06/12/19 10:00 06/13/19 10:00 Folic Acid - PO 1 mg DAILY LUCAS Administration Potassium Chloride 20 meq/ 1,010 mls @ 200 mls/hr 06/12/19 03:00 06/13/19 06: 45 Sodium Chloride IVPB 200 mls/hr ASDIR LUCAS Administration Lorazepam 2 mg 06/12/19 04:15 Ativan Injection - IVPUSH Q2H PRN ANXIETY Lorazepam 0.5 mg 06/15/19 05:00 Ativan - PO 06/15/19 23:01 Q6H LUCAS Lorazepam 0.5 mg 06/15/19 00:00 Ativan - PO 06/16/19 00:00 Q4H PRN Symptoms of Withdrawal Lorazepam 0.5 mg 06/16/19 05:00 Ativan - PO 06/16/19 05:01 ONCE ONE Lorazepam 1 mg 06/14/19 05:00 Ativan - PO 06/14/19 23:01 0500,1100,1700,2300 LUCAS Lorazepam 1 mg 06/12/19 11:16 06/13/19 10:00 Ativan - PO 06/14/19 23:59 1 mg Q4H PRN Administration Symptoms of Withdrawal Multivitamins/Minerals/Vitamin C 1 tab 06/12/19 10:00 06/13/19 10:00 Tab-A-Vit - PO 1 tab DAILY LUCAS Administration Pantoprazole Sodium 40 mg 06/12/19 10:00 06/13/19 10:00 Protonix Iv IVPUSH 40 mg DAILY LUCAS Administration Potassium Phos/Sodium Phos 1 packet 06/12/19 14:00 06/13/19 05:50 Phos-Nak Packet - PO 1 packet TID LUCAS Administration Senna 2 tab 06/12/19 03:04 06/12/19 21:36 Senna - PO 2 tab HS LUCAS Administration Thiamine HCl 100 mg 06/12/19 10:00 06/13/19 10:00 Vitamin B1 - PO 100 mg DAILY LUCAS Administration ASSESSMENT/PLAN: Ms. Dutton is a 44 y/o female with alcohol use disorder and eczema presenting from home due to weakness and vomiting following stopping alcohol use approximately 1 week prior to presentation. #acute alcoholic hepatitis 2/[address] shows liver steatosis and no abdominal pain but elevated lipase 1229. T bili 6.5-->5.4. U/S showing borderline CBD dilation. Discriminant score not necessitating steroid use at this time. -can advance to full liquid diet in the morning -NS 200mL/hr, lungs clear on exam -IV Zofran for nausea PRN -hepatitis panel pending -HIV negative -GI following- consider MRCP when possible #alcohol use disorder -Ativan taper -vitamins -hydration #syncope likely 2/2 hypotension and dehydration Echo normal EF, trace to mild MR, mild TR, cannot r/o wall motion abnormalities due to technically difficult study. Trops negative x 2. -tele #high anion gap metabolic acidosis likely 2/2 heavy alcohol use, resolved AG 25 at presentation. lactic acid 4.8 at presentation. -monitor CMP #hypokalemia 2.3 at admission, nearly resolved now -replete -recheck CMP #hypophosphatemia 0.2 at admission, resolved now -replete -recheck Phos #hypomagnesemia 1.2 at admission, nearly resolved -replete -recheck Mg #transaminitis 2/2 alcohol use -monitor for continued downtrend #GANESH Cr 1.4 no baseline #constipation, resolved Senna given with relief #macrocytosis 2/2 alcohol use MCV 114 #Eczema -aquaphor #FEN NS 200mL/hr close monitoring of potassium, magnesium, and phosphate, replete as necessary clear liquids GI ppx protonix 40mg #DVT ppx SCDs Dispo Tele Visit type - Emergency Visit Emergency Visit: Yes ED Registration Date: 06/12/19 Care time: The patient presented to the Emergency Department on the above date and was hospitalized for further evaluation of their emergent condition. - New Patient This patient is new to me today: No - Critical Care Critical Care patient: No - Discharge Referral Referred to [facility] No ATTENDING PHYSICIAN STATEMENT I saw and evaluated the patient. I reviewed the resident's note and discussed the case with the resident. I agree with the resident's findings and plan as documented. SUBJECTIVE: OBJECTIVE: ASSESSMENT AND PLAN:
[2019-06-13] MEDS ORDERED: MAGNESIUM SULF 50% (8.12 MEQ/2 ML-1 GM VIAL) IVPB ONE ×2 (13:42→14:06)
[2019-06-13] MEDS ORDERED: POTASSIUM CHLORIDE TABS 20 MEQ TABLET.ER (FP) PO ONE ×2 (13:44→14:06)
[2019-06-13] MEDS: KCL 10 MEQ IVPB 10 MEQ/100 ML INFUS.BAG IVPB SCH ×3 (14:18→16:37)
--- NOTE | 2019-06-13 15:52 | PN ---
Teaching Attending Note Name of Resident: Demetria Fatima ATTENDING PHYSICIAN STATEMENT I saw and evaluated the patient. I reviewed the resident's note and discussed the case with the resident. I agree with the resident's findings and plan as documented with exceptions below. SUBJECTIVE: Patient seen and examined, feels better, eating better, denies any nausea, vomiting, abdominal pain or diarrhea. OBJECTIVE: Vital Signs Period Temp Pulse Resp BP Sys/Clifford Pulse Ox Last 24 Hr 97.3 F-98.9 F 95-109 20-20 118-133/71-92 97-98 Intake & Output 06/10/19 06/11/19 06/12/19 06/13/19 23:59 23:59 23:59 23:59 Intake Total 9261 810 0440 Balance 9651 793 4901 Weight 99 lb 110 lb General: sitting in bed, no acute distress HEENT: scleral icterus Neck: soft, supple Chest: CTAb, no rales or wheezing Abdomen;Soft, NT throughout Extremities no edema, neg asterexis, mild tremors Active Medications Emollient Ointment (Aquaphor -) 1 applic TP DAILY [facility] Last Admin: 06/13/19 10:18 Dose: Not Given Folic Acid (Folic Acid -) 1 mg PO DAILY [facility] Last Admin: 06/13/19 10:00 Dose: 1 mg Potassium Chloride 20 meq/ (Sodium Chloride) 1,010 mls @ 200 mls/hr IVPB ASDIR [facility] Last Admin: 06/13/19 06:45 Dose: 200 mls/hr Potassium Chloride (Potassium Chloride 10 Meq Premix Ivpb -) 10 meq in 100 mls @ 100 mls/hr IVPB Q60M [facility] Stop: 06/13/19 16:44 Last Admin: 06/13/19 15:28 Dose: 100 mls/hr Lorazepam (Ativan Injection -) 2 mg IVPUSH Q2H PRN PRN Reason: ANXIETY Lorazepam (Ativan -) 0.5 mg PO Q6H [facility] Stop: 06/15/19 23:01 Lorazepam (Ativan -) 0.5 mg PO Q4H PRN PRN Reason: Symptoms of Withdrawal Stop: 06/16/19 00:00 Lorazepam (Ativan -) 0.5 mg PO ONCE ONE Stop: 06/16/19 05:01 Lorazepam (Ativan -) 1 mg PO 0500,1100,1700,2300 [facility] Stop: 06/14/19 23:01 Lorazepam (Ativan -) 1 mg PO Q4H PRN PRN Reason: Symptoms of Withdrawal Stop: 06/14/19 23:59 Last Admin: 06/13/19 10:00 Dose: 1 mg Multivitamins/Minerals/Vitamin C (Tab-A-Vit -) 1 tab PO DAILY [facility] Last Admin: 06/13/19 10:00 Dose: 1 tab Pantoprazole Sodium (Protonix Iv) 40 mg IVPUSH DAILY [facility] Last Admin: 06/13/19 10:00 Dose: 40 mg Potassium Phos/Sodium Phos (Phos-Nak Packet -) 1 packet PO TID [facility] Last Admin: 06/13/19 14:18 Dose: 1 packet Senna (Senna -) 2 tab PO HS [facility] Last Admin: 06/12/19 21:36 Dose: 2 tab Thiamine HCl (Vitamin B1 -) 100 mg PO DAILY [facility] Last Admin: 06/13/19 10:00 Dose: 100 mg Laboratory Results - last 24 hr 06/12/19 06/13/19 06/13/19 20:00 02:50 03:30 WBC RBC Hgb Hct MCV MCH MCHC RDW Plt Count MPV Absolute Neuts (auto) Neutrophils % Lymphocytes % Monocytes % Eosinophils % Basophils % Nucleated RBC % PT with INR INR Sodium 136 139 Potassium 2.7 L* 3.0 L Chloride 95 L 96 L Carbon Dioxide 27 29 Anion Gap 14 13 BUN 2.1 L* 1.5 L* Creatinine 0.7 0.7 Est GFR (CKD-EPI)AfAm 120.43 120.43 Est GFR (CKD-EPI)NonAf 103.90 103.90 Random Glucose 73 L 79 Calcium 8.3 L 7.7 L Phosphorus 0.2 L* 2.3 L Magnesium 1.7 L 1.8 Total Bilirubin 4.9 H AST 189 H ALT 80 H Alkaline Phosphatase 127 H Total Protein 5.8 L Albumin 3.1 L Urine Osmolality 390 06/13/19 06/13/19 06/13/19 05:35 10:42 10:42 WBC 3.7 L RBC 2.47 L Hgb 9.9 L Hct 28.9 L MCV 116.8 H MCH 40.1 H MCHC 34.3 RDW 16.1 H Plt Count 65 L MPV 9.3 Absolute Neuts (auto) 2.4 Neutrophils % 64.1 Lymphocytes % 24.8 Monocytes % 9.7 Eosinophils % 0.5 D Basophils % 0.9 Nucleated RBC % 0 PT with INR 15.40 H INR 1.30 H Sodium 138 Potassium 2.9 L* Chloride 95 L Carbon Dioxide 28 Anion Gap 14 BUN 1.2 L* Creatinine 0.6 Est GFR (CKD-EPI)AfAm 126.69 Est GFR (CKD-EPI)NonAf 109.31 Random Glucose 84 Calcium 7.6 L Phosphorus 3.1 Magnesium 1.7 L Total Bilirubin 5.4 H AST 179 H ALT 80 H Alkaline Phosphatase 128 H Total Protein 5.8 L Albumin 3.0 L Urine Osmolality ASSESSMENT AND PLAN: 44 yof with PMHx to ETOH abuse, ecezema, severe malnutrition admitted with weakness, nausea, vomiting, multiple falls, found with ETOH hepatitis, severe elctrolyte abnormalities -ETOH abuse -ETOH hepatitis -Syncope/falls, suspect from volume depletion -Severe hypokalemia, hypophosphatemia, hypomagnesemia, hypnatremia -Metabolic/starvation acidosis -Severe protein calorie malnutrition -Macrocytic anemia -Thrombocytopenia, suspect alcohol related bone marrow suppression Plan: LFTs improving overall, clinically better. Tolerating clears well. Gradually advance diet and monitor for refeeding syndrome replete electrolytes aggressively. Nutrition input GI input noted, no need for steroids Ativan detox protocol, folate, thiamine, will benefit from ETOH rehab when clinically improved, if interested. h/h inital drop suspect from hemodilution. check Folate/b12,iron panel, FOBT. Plan for surveillance EGD prior to dc DVTPPX with SCDs given thrombocytopenia dispo pending clinical improvement. Discussed with patient, all questions answered.
--- NOTE | 2019-06-13 17:26 | PN.GI ---
GI Progress Note Subjective: No acute events No abdominal pain Awake, states feeling well. - Objective Vital Signs: Vital Signs Temperature 97.8 F 06/13/19 14:00 Pulse Rate 107 H 06/13/19 14:00 Respiratory Rate 20 06/13/19 09:00 Blood Pressure 131/71 06/13/19 14:00 O2 Sat by Pulse Oximetry (%) 97 06/13/19 09:00 Constitutional: Calm Cardiovascular: Yes: Tachycardia Respiratory: Yes: Diminished (at bases with poor insp effort) Gastrointestinal Inspection: No: Distention ...Auscultate: Yes: Normoactive Bowel Sounds ...Palpate: Yes: Hepatomegaly, Soft. No: Splenomegaly, Tenderness ...Percussion: No: Tympanitic Edema: No (No LE edema) Neurological: Yes: Alert. No: [facility] Labs: CBC, BMP 06/13/19 10:42 06/13/19 05:35 INR, PTT INR 1.30 (0.83-1.09) H 06/13/19 10:42 Problem List - Problems (1) Alcoholic hepatitis Assessment/Plan: Continue supportive measures Replete lytes Advance diet to full liquid Borderline dilated CBD on US. MRCP when feasible. No clinical evidence of pancreatitis No colitis symptoms Code(s): K70.10 - ALCOHOLIC HEPATITIS WITHOUT ASCITES
[2019-06-13] MEDS: SENNOSIDES 8.6MG TABLET (FP) PO SCH (21:56)
[2019-06-13] MEDS ORDERED: SODIUM CHLORIDE 0.9%/KCL 20 MEQ/1,000 ML INFUS.BAG IV SCH (23:15)
[2019-06-14 01:10] LABS: HEP B CORE AB, TOT Negative (Negative)
[2019-06-14] MEDS: NAPH,MB-DB/K PH,MBDB POWDER PACKET PO SCH (05:19)
[2019-06-14] MEDS: LORazepam 1 MG TABLET PO SCH ×4 (05:21→22:16)
[2019-06-14 07:29] LABS: EOS % 0.7 % (0-4.5); HEMATOCRIT 25.8 % (32.4-45.2); HEMOGLOBIN 8.9 GM/dL (10.7-15.3); LYMPH % 19.3 % (8-40); MCHC 34.5 g/dl (32.0-36.0); MEAN CELL VOLUME 116.9 fl (80-96); MEAN PLT VOLUME 9.8 fl (7.5-11.1); MONO % 10.9 % (3.8-10.2); NEUT % 68.1 % (42.8-82.8); PLATELET COUNT 61 K/MM3 (134-434); RBC 2.21 M/mm3 (3.60-5.2); RDW 16.7 % (11.6-15.6); WHITE BLOOD COUNT 3.2 K/mm3 (4.0-10.0)
[2019-06-14] MEDS ORDERED: SODIUM CHLORIDE 0.9%/KCL 20 MEQ/1,000 ML INFUS.BAG IV SCH (07:47)
[2019-06-14 07:48] LABS: MCH 40.4 pg (25.7-33.7)
[2019-06-14 08:14] LABS: ALBUMIN 2.8 g/dl (3.4-5.0); BILIRUBIN,TOTAL 4.6 mg/dL (0.2-1); CALCIUM 7.3 mg/dL (8.5-10.1); CREATININE 0.6 mg/dL (0.55-1.3); MAGNESIUM 1.8 mg/dL (1.8-2.4); POTASSIUM 4.3 mmol/L (3.5-5.1); TOT PROT 5.5 g/dl (6.4-8.2)
[2019-06-14 08:26] LABS: BLOOD UREA NITROGEN 1.4 mg/dL (7-18); PHOSPHOROUS 0.9 mg/dL (2.5-4.9)
[2019-06-14] MEDS ORDERED: POTASSIUM PHOSPHATE 45 MM in SODIUM CHLORIDE 250 ML IVPB ONE (08:31)
[2019-06-14] MEDS ORDERED: POTASSIUM PHOSPHATE 30 MM in SODIUM CHLORIDE 250 ML IVPB ONE (08:32)
[2019-06-14] MEDS ORDERED: SODIUM PHOSPHATE - 30 MM in DEXTROSE 5%-WATER - 250 ML IVPB ONE (09:01)
[2019-06-14] MEDS ORDERED: SODIUM PHOSPHATE - 30 MM in DEXTROSE 5%-WATER - 500 ML IVPB ONE (10:05)
[2019-06-14] MEDS: THIAMINE HCL 100 MG TABLET (FP) PO SCH (10:28)
[2019-06-14] MEDS: FOLIC ACID 1 MG TABLET (FP) PO SCH (10:28)
[2019-06-14] MEDS: MULTIVITAMINS (DAILY MVI) TABLET (FP) PO SCH (10:28)
[2019-06-14] MEDS: MINERAL OIL/PET HY-PHL TOPICAL OINTMENT 454 GM JAR TP SCH (12:30)
--- NOTE | 2019-06-14 13:06 | PN ---
Teaching Attending Note Name of Resident: Demetria Fatima ATTENDING PHYSICIAN STATEMENT I saw and evaluated the patient. I reviewed the resident's note and discussed the case with the resident. I agree with the resident's findings and plan as documented with exceptions below. SUBJECTIVE: Patient seen and examined, multiple watery stools overnight, no abdominal pain or dizziness. OBJECTIVE: Vital Signs Period Temp Pulse Resp BP Sys/Clifford Pulse Ox Last 24 Hr 97.8 F-98.7 F 98-112 20-20 123-143/71-112 98 Intake & Output 06/11/19 06/12/19 06/13/19 06/14/19 23:59 23:59 23:59 23:59 Intake Total 9673 642 7952 2640 Balance 2935 875 1815 2640 Weight 99 lb 110 lb General: no acute distress HEENT: facial swelling Chest: CTAB, no rales or wheezing Abdomen:Soft, NT Extremities: 1+ non pitting edema CVS:S1S2 regular tachycardic Telemetry: Sinus tach, intermittent tachy episodes 160s, ?SVT Active Medications Emollient Ointment (Aquaphor -) 1 applic TP DAILY [facility] Last Admin: 06/14/19 12:30 Dose: 1 applic Folic Acid (Folic Acid -) 1 mg PO DAILY [facility] Last Admin: 06/14/19 10:28 Dose: 1 mg Potassium Chloride/Sodium Chloride (Ns+20 Meq Kcl -) 20 meq in 1,000 mls @ 125 mls/hr IV ASDIR [facility] Sodium Phosphate 30 mm/ (Dextrose) 510 mls @ 72.857 mls/hr IVPB ONCE ONE Stop: 06/14/19 16:00 Last Admin: 06/14/19 10:48 Dose: 72.857 mls/hr Lorazepam (Ativan -) 0.5 mg PO Q6H [facility] Stop: 06/15/19 23:01 Lorazepam (Ativan -) 0.5 mg PO Q4H PRN PRN Reason: Symptoms of Withdrawal Stop: 06/16/19 00:00 Lorazepam (Ativan -) 0.5 mg PO ONCE ONE Stop: 06/16/19 05:01 Lorazepam (Ativan -) 1 mg PO 0500,1100,1700,2300 [facility] Stop: 06/14/19 23:01 Last Admin: 06/14/19 10:27 Dose: 1 mg Magnesium Oxide (Mag-Ox -) 800 mg PO BID [facility] Stop: 06/16/19 10:01 Multivitamins/Minerals/Vitamin C (Tab-A-Vit -) 1 tab PO DAILY [facility] Last Admin: 06/14/19 10:28 Dose: 1 tab Senna (Senna -) 2 tab PO HS [facility] Last Admin: 06/13/19 21:56 Dose: 2 tab Thiamine HCl (Vitamin B1 -) 100 mg PO DAILY [facility] Last Admin: 06/14/19 10:28 Dose: 100 mg Laboratory Results - last 24 hr 06/12/19 06/14/19 06/14/19 06:36 05:53 05:53 WBC 3.2 L RBC 2.21 L Hgb 8.9 L Hct 25.8 L MCV 116.9 H MCH 40.4 H MCHC 34.5 RDW 16.7 H Plt Count 61 L MPV 9.8 Absolute Neuts (auto) 2.2 Neutrophils % 68.1 Lymphocytes % 19.3 D Monocytes % 10.9 H Eosinophils % 0.7 Basophils % 1.0 Nucleated RBC % 0 Sodium 141 Potassium 4.3 Chloride 104 Carbon Dioxide 29 Anion Gap 7 L BUN 1.4 L* Creatinine 0.6 Est GFR (CKD-EPI)AfAm 126.69 Est GFR (CKD-EPI)NonAf 109.31 Random Glucose 102 Calcium 7.3 L Phosphorus 0.9 L* Magnesium 1.8 Iron TIBC Iron Saturation Unsaturated IBC Ferritin Total Bilirubin 4.6 H AST 157 H ALT 77 H Alkaline Phosphatase 120 H Total Protein 5.5 L Albumin 2.8 L Vitamin B12 Serum Folate 7 Hep A IgM Ab Confirm Negative Hepatitis A Ab Total Negative Hep Bs Antigen Negative Hep Bs Antibody Reactive Hep B Core Total Ab Negative Hep B Core IgM Ab Negative Hepatitis Be Antibody Negative Hepatitis Be Antigen Negative HCV Quantitation Hcv not detected HCV RNA log copies/mL TNP 06/14/19 05:53 WBC RBC Hgb Hct MCV MCH MCHC RDW Plt Count MPV Absolute Neuts (auto) Neutrophils % Lymphocytes % Monocytes % Eosinophils % Basophils % Nucleated RBC % Sodium Potassium Chloride Carbon Dioxide Anion Gap BUN Creatinine Est GFR (CKD-EPI)AfAm Est GFR (CKD-EPI)NonAf Random Glucose Calcium Phosphorus Magnesium Iron 91 TIBC 194 L Iron Saturation 46 H Unsaturated IBC 103 L Ferritin 1358.3 H Total Bilirubin AST ALT Alkaline Phosphatase Total Protein Albumin Vitamin B12 1443 H Serum Folate Hep A IgM Ab Confirm Hepatitis A Ab Total Hep Bs Antigen Hep Bs Antibody Hep B Core Total Ab Hep B Core IgM Ab Hepatitis Be Antibody Hepatitis Be Antigen HCV Quantitation HCV RNA log copies/mL Microbiology 06/11/19 21:40 Blood - Peripheral Venous Blood Culture - Preliminary NO GROWTH OBTAINED AFTER 48 HOURS, INCUBATION TO CONTINUE FOR 3 DAYS. 06/11/19 21:40 Blood - Peripheral Venous Blood Culture - Preliminary NO GROWTH OBTAINED AFTER 48 HOURS, INCUBATION TO CONTINUE FOR 3 DAYS. ASSESSMENT AND PLAN: 44 yof with PMHx to ETOH abuse, ecezema, severe malnutrition admitted with weakness, nausea, vomiting, multiple falls, found with ETOH hepatitis, severe elctrolyte abnormalities -ETOH abuse -ETOH hepatitis -Syncope/falls, suspect from volume depletion -Severe hypokalemia, hypophosphatemia, hypomagnesemia, hypnatremia -Metabolic/starvation acidosis -Severe protein calorie malnutrition -Suspected refeeding syndrome -Macrocytic anemia -Thrombocytopenia, suspect alcohol related bone marrow suppression Plan: LFTs improving overall, clinically better. Diarrhea, suspect refeeding syndrome. Will not advance diet today. Aggressively replete electrolytes. Sinus tach on tele, ?occasional SVT, Will continue to replete electrolytes and monitor closely for now. Hold off on additional medications. Check Urine phos. GI input noted, no need for steroids. Check MRCP Ativan detox protocol, folate, thiamine, will benefit from ETOH rehab when clinically improved, if interested. h/h inital drop suspect from hemodilution. B12/folate/iron panel noted. Plan for surveillance EGD prior to dc DVTPPX with SCDs given thrombocytopenia dispo pending clinical improvement. Discussed with patient, all questions answered.
[2019-06-14] MEDS: MAGNESIUM OXIDE 400 MG TABLET (FP) PO SCH ×3 (13:40→22:15)
--- NOTE | 2019-06-14 16:09 | PN.GI ---
GI Progress Note Subjective: Some loose bowel movements States feeling better No abdominal pain some loose bowel movements - Objective Vital Signs: Vital Signs Temperature 98 F 06/14/19 14:15 Pulse Rate 107 H 06/14/19 14:15 Respiratory Rate 20 06/14/19 14:15 Blood Pressure 148/84 06/14/19 14:15 O2 Sat by Pulse Oximetry (%) 98 06/13/19 20:47 Constitutional: Calm Eyes: Yes: Sclera Icterus, Other (periorbital edema) Cardiovascular: Yes: Tachycardia Respiratory: Yes: CTA Bilaterally Gastrointestinal Inspection: No: Distention ...Auscultate: Yes: Normoactive Bowel Sounds ...Palpate: Yes: Hepatomegaly, Soft. No: Tenderness Edema: No (No LE edema) Labs: CBC, BMP 06/14/19 05:53 06/14/19 05:53 INR, PTT INR 1.30 (0.83-1.09) H 06/13/19 10:42 Problem List - Problems (1) Alcoholic hepatitis Assessment/Plan: With significant electrolyte abnormalities Not encephalopathic Advance diet. Nutrition evaluation. dietary supplementation Close monitoring and continued repletion of electrolytes Supportive measures per primary team Code(s): K70.10 - ALCOHOLIC HEPATITIS WITHOUT ASCITES
--- NOTE | 2019-06-14 16:15 | PN ---
Physical Exam: SUBJECTIVE: Patient seen and examined. She reports feeling sleepy today. She had multiple episodes of sudden diarrhea overnight without associated abdominal pain. She denies fever, chills, chest pain, shortness of breath, nausea, or vomiting. She has an appetite and is consuming the liquid diet. OBJECTIVE: Vital Signs Period Temp Pulse Resp BP Sys/Clifford Pulse Ox Last 24 Hr 97.8 F-98.7 F 98-112 20-20 123-148/79-112 98 GENERAL: The patient is awake, alert, and fully oriented, in no acute distress. HEAD: Normal with no signs of trauma. Facial eczema present above lip and on cheeks. EYES: PERRL, extraocular movements intact, icteric sclera, conjunctiva clear. ENT: Ears normal, nares patent, moist mucous membranes. NECK: Trachea midline, full range of motion, supple. LUNGS: Breath sounds equal, clear to auscultation bilaterally, no wheezes HEART: Tachycardic, regular rhythm, no murmur ABDOMEN: Soft, nontender, nondistended, normoactive bowel sounds, no guarding EXTREMITIES: 2+ pulses, warm, well-perfused, no edema. Strength and sensation intact in all 4 extremities. Mild tremors present in upper extremities which are improving daily. NEUROLOGICAL: Normal speech, gait not observed. PSYCH: Normal mood, normal affect. SKIN: Warm, dry, normal turgor, no rashes or lesions noted. Laboratory Results - last 24 hr 06/12/19 06/14/19 06/14/19 06:36 05:53 05:53 WBC 3.2 L RBC 2.21 L Hgb 8.9 L Hct 25.8 L MCV 116.9 H MCH 40.4 H MCHC 34.5 RDW 16.7 H Plt Count 61 L MPV 9.8 Absolute Neuts (auto) 2.2 Neutrophils % 68.1 Lymphocytes % 19.3 D Monocytes % 10.9 H Eosinophils % 0.7 Basophils % 1.0 Nucleated RBC % 0 Sodium 141 Potassium 4.3 Chloride 104 Carbon Dioxide 29 Anion Gap 7 L BUN 1.4 L* Creatinine 0.6 Est GFR (CKD-EPI)AfAm 126.69 Est GFR (CKD-EPI)NonAf 109.31 Random Glucose 102 Calcium 7.3 L Phosphorus 0.9 L* Magnesium 1.8 Iron TIBC Iron Saturation Unsaturated IBC Ferritin Total Bilirubin 4.6 H AST 157 H ALT 77 H Alkaline Phosphatase 120 H Total Protein 5.5 L Albumin 2.8 L Vitamin B12 Serum Folate 7 Hep A IgM Ab Confirm Negative Hepatitis A Ab Total Negative Hep Bs Antigen Negative Hep Bs Antibody Reactive Hep B Core Total Ab Negative Hep B Core IgM Ab Negative Hepatitis Be Antibody Negative Hepatitis Be Antigen Negative HCV Quantitation Hcv not detected HCV RNA log copies/mL TNP 06/14/19 05:53 WBC RBC Hgb Hct MCV MCH MCHC RDW Plt Count MPV Absolute Neuts (auto) Neutrophils % Lymphocytes % Monocytes % Eosinophils % Basophils % Nucleated RBC % Sodium Potassium Chloride Carbon Dioxide Anion Gap BUN Creatinine Est GFR (CKD-EPI)AfAm Est GFR (CKD-EPI)NonAf Random Glucose Calcium Phosphorus Magnesium Iron 91 TIBC 194 L Iron Saturation 46 H Unsaturated IBC 103 L Ferritin 1358.3 H Total Bilirubin AST ALT Alkaline Phosphatase Total Protein Albumin Vitamin B12 1443 H Serum Folate Hep A IgM Ab Confirm Hepatitis A Ab Total Hep Bs Antigen Hep Bs Antibody Hep B Core Total Ab Hep B Core IgM Ab Hepatitis Be Antibody Hepatitis Be Antigen HCV Quantitation HCV RNA log copies/mL Active Medications Generic Name Dose Route Start Last Admin Trade Name Freq PRN Reason Stop Dose Admin Emollient Ointment 1 applic 06/12/19 10:00 06/14/19 12:30 Aquaphor - TP 1 applic DAILY [facility] Administration Folic Acid 1 mg 06/12/19 10:00 06/14/19 10:28 Folic Acid - PO 1 mg DAILY [facility] Administration Potassium Chloride/Sodium Chloride 20 meq in 1,000 mls @ 125 mls/hr 06/14/19 07:47 Ns+20 Meq Kcl - IV ASDIR [facility] Lorazepam 0.5 mg 06/15/19 05:00 Ativan - PO 06/15/19 23:01 Q6H [facility] Lorazepam 0.5 mg 06/15/19 00:00 Ativan - PO 06/16/19 00:00 Q4H PRN Symptoms of Withdrawal Lorazepam 0.5 mg 06/16/19 05:00 Ativan - PO 06/16/19 05:01 ONCE ONE Lorazepam 1 mg 06/14/19 05:00 06/14/19 10:27 Ativan - PO 06/14/19 23:01 1 mg 0500,1100,1700,2300 [facility] Administration Magnesium Oxide 800 mg 06/14/19 13:45 06/14/19 13:42 Mag-Ox - PO 06/16/19 10:01 Not Given BID [facility] Multivitamins/Minerals/Vitamin C 1 tab 06/12/19 10:00 06/14/19 10:28 Tab-A-Vit - PO 1 tab DAILY [facility] Administration Senna 2 tab 06/12/19 03:04 06/13/19 21:56 Senna - PO 2 tab HS [facility] Administration Thiamine HCl 100 mg 06/12/19 10:00 06/14/19 10:28 Vitamin B1 - PO 100 mg DAILY [facility] Administration ASSESSMENT/PLAN: Ms. Dutton is a 44 y/o female with alcohol use disorder and eczema presenting from home due to weakness and vomiting following stopping alcohol use approximately 1 week prior to presentation. #acute alcoholic hepatitis 2/[address] shows liver steatosis and no abdominal pain but elevated lipase 1229. T bili 6.5-->5.4. U/S showing borderline CBD dilation. Discriminant score not necessitating steroid use at this time. -can advance to full liquid diet in the morning -NS 125mL/hr with K -IV Zofran for nausea PRN -hepatitis panel pending- B negative -HIV negative -GI following -MRCP #alcohol use disorder -Ativan taper -vitamins -hydration #syncope likely 2/2 hypotension and dehydration Echo normal EF, trace to mild MR, mild TR, cannot r/o wall motion abnormalities due to technically difficult study. Trops negative x 2. -tele- tachycardic #high anion gap metabolic acidosis likely 2/2 heavy alcohol use, resolved AG 25 at presentation. lactic acid 4.8 at presentation. -monitor CMP #hypokalemia 2.3 at admission -replete -recheck CMP #hypophosphatemia 0.2 at admission -replete -recheck Phos #hypomagnesemia 1.2 at admission -replete -recheck Mg #transaminitis 2/2 alcohol use -monitor for continued downtrend #pancytopenia likely 2/2 fluid intake -IV fluids decreased -monitor #GANESH Cr 1.4 no baseline #constipation, resolved Senna given with relief yesterday #macrocytosis 2/2 alcohol use MCV 114 at admission #Eczema -aquaphor #FEN NS 125mL/hr close monitoring of potassium, magnesium, and phosphate, replete as necessary regular diet GI ppx protonix 40mg #DVT ppx SCDs Dispo Tele, NPO after midnight MRCP Visit type - Emergency Visit Emergency Visit: Yes ED Registration Date: 06/12/19 Care time: The patient presented to the Emergency Department on the above date and was hospitalized for further evaluation of their emergent condition. - New Patient This patient is new to me today: No - Critical Care Critical Care patient: No - Discharge Referral Referred to [facility] Med [facility] No ATTENDING PHYSICIAN STATEMENT I saw and evaluated the patient. I reviewed the resident's note and discussed the case with the resident. I agree with the resident's findings and plan as documented. SUBJECTIVE: OBJECTIVE: ASSESSMENT AND PLAN:
[2019-06-14] MEDS ORDERED: NAPH,MB-DB/K PH,MBDB POWDER PACKET PO ONE (21:58)
[2019-06-14] MEDS: SENNOSIDES 8.6MG TABLET (FP) PO SCH (22:16)
[2019-06-14] MEDS: SODIUM CHLORIDE 1,000 ML IV SCH (22:16)
[2019-06-14 22:32] LABS: CALCIUM 7.3 mg/dL (8.5-10.1); CREATININE 0.5 mg/dL (0.55-1.3); MAGNESIUM 1.3 mg/dL (1.8-2.4); PHOSPHOROUS 2.6 mg/dL (2.5-4.9); POTASSIUM 3.6 mmol/L (3.5-5.1)
[2019-06-14 22:37] LABS: BLOOD UREA NITROGEN 1.6 mg/dL (7-18)
[2019-06-15] MEDS ORDERED: LORazepam 0.5 MG TABLET PO PRN
[2019-06-15] MEDS: LORazepam 0.5 MG TABLET PO SCH ×4 (05:51→19:05)
[2019-06-15 09:04] LABS: BASO % 1.4 % (0-2.0); EOS % 0.9 % (0-4.5); HEMATOCRIT 25.3 % (32.4-45.2); HEMOGLOBIN 8.6 GM/dL (10.7-15.3); LYMPH % 27.7 % (8-40); MCHC 34.1 g/dl (32.0-36.0); MEAN PLT VOLUME 9.9 fl (7.5-11.1); MONO % 11.4 % (3.8-10.2); NEUT % 58.6 % (42.8-82.8); PLATELET COUNT 73 K/MM3 (134-434); RBC 2.15 M/mm3 (3.60-5.2); RDW 17.3 % (11.6-15.6); WHITE BLOOD COUNT 3.1 K/mm3 (4.0-10.0)
[2019-06-15 09:06] LABS: MCH 40.3 pg (25.7-33.7)
[2019-06-15] MEDS: THIAMINE HCL 100 MG TABLET (FP) PO SCH (09:25)
[2019-06-15] MEDS: FOLIC ACID 1 MG TABLET (FP) PO SCH (09:25)
[2019-06-15] MEDS: MAGNESIUM OXIDE 400 MG TABLET (FP) PO SCH ×2 (09:25→22:12)
[2019-06-15] MEDS: MULTIVITAMINS (DAILY MVI) TABLET (FP) PO SCH (09:26)
[2019-06-15 09:29] LABS: ALBUMIN 2.8 g/dl (3.4-5.0); ALK PHOS 113 U/L (45-117); ANION GAP 9 MMOL/L (8-16); BILIRUBIN,TOTAL 3.7 mg/dL (0.2-1); CALCIUM 7.2 mg/dL (8.5-10.1); CHLORIDE 105 mmol/L (98-107); CO2 28 mmol/L (21-32); CREATININE 0.4 mg/dL (0.55-1.3); GLUCOSE,RANDOM 88 mg/dL (74-106); MAGNESIUM 1.4 mg/dL (1.8-2.4); PHOSPHOROUS 2.8 mg/dL (2.5-4.9); POTASSIUM 3.3 mmol/L (3.5-5.1); SGOT/AST 154 U/L (15-37); SGPT/ALT 76 U/L (13-61); SODIUM 142 mmol/L (136-145); TOT PROT 5.4 g/dl (6.4-8.2)
[2019-06-15 10:02] LABS: BLOOD UREA NITROGEN < 1.0 mg/dL (7-18)
--- NOTE | 2019-06-15 11:21 | PN ---
Physical Exam: SUBJECTIVE: Patient seen and examined. She reports she is feeling well today. She has not had diarrhea since earlier yesterday. Her appetite is good. She denies chest pain, abdominal pain, nausea, and vomiting. OBJECTIVE: Vital Signs Period Temp Pulse Resp BP Sys/Clifford Pulse Ox Last 24 Hr 98 F-99.1 F 99-115 20-20 124-148/78-89 99-99 GENERAL: A&Ox3, watching TV in bed HEAD: Facial swelling, especially infraorbital area bilaterally, less jaundiced than at admission, eczema around mouth with dry skin EYES: PERRL, extraocular movements intact, sclera now anicteric, conjunctiva clear ENT: Ears normal, nares patent, moist mucous membranes NECK: Trachea midline, full range of motion LUNGS: CTA bilaterally, no wheezing or accessory muscle use HEART: Tachycardic, regular rhythm, no murmur ABDOMEN: Soft, nontender, nondistended, normoactive bowel sounds EXTREMITIES: Warm, well-perfused, no edema. NEUROLOGICAL: Cranial nerves II through XII grossly intact. Normal speech, gait not observed. PSYCH: Normal mood, normal affect. SKIN: Warm, dry, normal turgor, no rashes or lesions noted, except stated above tele: episodes of tachycardia >140 Laboratory Results - last 24 hr 06/12/19 06/14/19 06/15/19 06:36 21:00 08:05 WBC 3.1 L RBC 2.15 L Hgb 8.6 L Hct 25.3 L MCV 118.0 H MCH 40.3 H MCHC 34.1 RDW 17.3 H Plt Count 73 L MPV 9.9 Absolute Neuts (auto) 1.8 Neutrophils % 58.6 Lymphocytes % 27.7 D Monocytes % 11.4 H Eosinophils % 0.9 Basophils % 1.4 Nucleated RBC % 0 Sodium 142 Potassium 3.6 Chloride 105 Carbon Dioxide 30 Anion Gap 7 L BUN 1.6 L* Creatinine 0.5 L Est GFR (CKD-EPI)AfAm 134.52 Est GFR (CKD-EPI)NonAf 116.07 Random Glucose 107 H Calcium 7.3 L Phosphorus 2.6 Magnesium 1.3 L Total Bilirubin AST ALT Alkaline Phosphatase Total Protein Albumin HCV Quantitation Hcv not detected HCV RNA log copies/mL TNP 06/15/19 08:45 WBC RBC Hgb Hct MCV MCH MCHC RDW Plt Count MPV Absolute Neuts (auto) Neutrophils % Lymphocytes % Monocytes % Eosinophils % Basophils % Nucleated RBC % Sodium 142 Potassium 3.3 L Chloride 105 Carbon Dioxide 28 Anion Gap 9 BUN < 1.0 L* Creatinine 0.4 L Est GFR (CKD-EPI)AfAm 144.77 Est GFR (CKD-EPI)NonAf 124.91 Random Glucose 88 Calcium 7.2 L Phosphorus 2.8 Magnesium 1.4 L Total Bilirubin 3.7 H AST 154 H ALT 76 H Alkaline Phosphatase 113 Total Protein 5.4 L Albumin 2.8 L HCV Quantitation HCV RNA log copies/mL Active Medications Generic Name Dose Route Start Last Admin Trade Name Freq PRN Reason Stop Dose Admin Emollient Ointment 1 applic 06/12/19 10:00 06/14/19 12:30 Aquaphor - TP 1 applic DAILY LUCAS Administration Folic Acid 1 mg 06/12/19 10:00 06/15/19 09:25 Folic Acid - PO 1 mg DAILY LUCAS Administration Sodium Chloride 1,000 mls @ 100 mls/hr 06/14/19 22:00 06/14/19 22:16 Normal Saline - IV 100 mls/hr ASDIR LUCAS Administration Lorazepam 0.5 mg 06/15/19 05:00 06/15/19 05:51 Ativan - PO 06/15/19 23:01 0.5 mg Q6H LUCAS Administration Lorazepam 0.5 mg 06/15/19 00:00 06/15/19 09:26 Ativan - PO 06/16/19 00:00 0.5 mg Q4H PRN Administration Symptoms of Withdrawal Lorazepam 0.5 mg 06/16/19 05:00 Ativan - PO 06/16/19 05:01 ONCE ONE Magnesium Oxide 800 mg 06/14/19 13:45 06/15/19 09:25 Mag-Ox - PO 06/16/19 10:01 800 mg BID LUCAS Administration Multivitamins/Minerals/Vitamin C 1 tab 06/12/19 10:00 06/15/19 09:26 Tab-A-Vit - PO 1 tab DAILY LUCAS Administration Senna 2 tab 06/12/19 03:04 06/14/19 22:16 Senna - PO 2 tab HS LUCAS Administration Thiamine HCl 100 mg 06/12/19 10:00 06/15/19 09:25 Vitamin B1 - PO 100 mg DAILY LUCAS Administration ASSESSMENT/PLAN: Ms. Dutton is a 44 y/o female with alcohol use disorder and eczema presenting from home due to weakness and vomiting following stopping alcohol use approximately 1 week prior to presentation. Imaging shows liver steatosis and borderline CBD dilation. She was found to have alcoholic hepatitis with HAGMA. She was treated with Ativan for detox as well as supplemented K, Mg, and Phos. #acute alcoholic hepatitis 2/[address] shows liver steatosis and no abdominal pain but elevated lipase 1229. T bili 6.5-->5.4. U/S showing borderline CBD dilation. Discriminant score not necessitating steroid use at this time. Hepatitis panel and HIV negative. -regular diet -NS 100mL/hr -IV Zofran for nausea PRN -GI following -MRCP -dietary consult #alcohol use disorder -Ativan scheduled and PRN -vitamins -hydration #syncope likely 2/2 hypotension and dehydration Echo normal EF, trace to mild MR, mild TR, cannot r/o wall motion abnormalities due to technically difficult study. Trops negative x 2. -tele- tachycardic #high anion gap metabolic acidosis likely 2/2 heavy alcohol use, resolved AG 25 at presentation. lactic acid 4.8 at presentation. -monitor CMP #hypokalemia 2.3 at admission -replete -recheck CMP #hypophosphatemia 0.2 at admission -replete -recheck Phos #hypomagnesemia 1.2 at admission -replete -recheck Mg #transaminitis 2/2 alcohol use Alk Phos in normal range now, AST/ALT still elevated -monitor for continued downtrend #pancytopenia likely 2/2 fluid intake No major change overnight -IV fluids decreased -monitor #GANESH, resolved Cr 1.4 at admission, now 0.4 #diarrhea, improved Possibly refeeding syndrome -monitor #macrocytosis 2/2 alcohol use MCV 114 at admission #Eczema -aquaphor #FEN NS 100mL/hr close monitoring of potassium, magnesium, and phosphate, replete as necessary regular diet GI ppx protonix 40mg DVT ppx SCDs Dispo Tele Visit type - Emergency Visit Emergency Visit: Yes ED Registration Date: 06/12/19 Care time: The patient presented to the Emergency Department on the above date and was hospitalized for further evaluation of their emergent condition. - New Patient This patient is new to me today: No - Critical Care Critical Care patient: No - Discharge Referral Referred to [facility] No ATTENDING PHYSICIAN STATEMENT I saw and evaluated the patient. I reviewed the resident's note and discussed the case with the resident. I agree with the resident's findings and plan as documented. SUBJECTIVE: OBJECTIVE: ASSESSMENT AND PLAN:
[2019-06-15 11:39] LABS: ANISOCYTOSIS 2+; MACROCYTOSIS 2+; PLATELET ESTIMATE DECREASED; TARGET CELLS 2+
--- NOTE | 2019-06-15 12:47 | PN ---
Teaching Attending Note Name of Resident: Demetria Fatima ATTENDING PHYSICIAN STATEMENT I saw and evaluated the patient. I reviewed the resident's note and discussed the case with the resident. I agree with the resident's findings and plan as documented with exceptions below. SUBJECTIVE: Patient seen and examined. tolerating diet. tremulous, still with watery diarrhea, no complaints otherwise. OBJECTIVE: Vital Signs Period Temp Pulse Resp BP Sys/Clifford Pulse Ox Last 24 Hr 98 F-99.1 F 99-115 20-20 124-148/78-89 99-99 Intake & Output 06/12/19 06/13/19 06/14/19 06/15/19 23:59 23:59 23:59 23:59 Intake Total 420 3710 3440 1390 Balance 420 3710 3440 1390 Weight 110 lb General: no acute distress HEENT: facial swelling Chest: CTAB, no rales or wheezing Abdomen:Soft, NT Extremities: 1+ non pitting edema CVS:S1S2 regular tachycardic Telemetry: Sinus tach, intermittent tachy episodes 160s, ?SVT Laboratory Results - last 24 hr 06/14/19 06/15/19 06/15/19 21:00 08:05 08:45 WBC 3.1 L RBC 2.15 L Hgb 8.6 L Hct 25.3 L MCV 118.0 H MCH 40.3 H MCHC 34.1 RDW 17.3 H Plt Count 73 L MPV 9.9 Absolute Neuts (auto) 1.8 Neutrophils % 58.6 Lymphocytes % 27.7 D Monocytes % 11.4 H Eosinophils % 0.9 Basophils % 1.4 Nucleated RBC % 0 Sodium 142 142 Potassium 3.6 3.3 L Chloride 105 105 Carbon Dioxide 30 28 Anion Gap 7 L 9 BUN 1.6 L* < 1.0 L* Creatinine 0.5 L 0.4 L Est GFR (CKD-EPI)AfAm 134.52 144.77 Est GFR (CKD-EPI)NonAf 116.07 124.91 Random Glucose 107 H 88 Calcium 7.3 L 7.2 L Phosphorus 2.6 2.8 Magnesium 1.3 L 1.4 L Total Bilirubin 3.7 H AST 154 H ALT 76 H Alkaline Phosphatase 113 Total Protein 5.4 L Albumin 2.8 L Active Medications Emollient Ointment (Aquaphor -) 1 applic TP DAILY LUCAS Last Admin: 06/14/19 12:30 Dose: 1 applic Folic Acid (Folic Acid -) 1 mg PO DAILY [facility] Last Admin: 06/15/19 09:25 Dose: 1 mg Sodium Chloride (Normal Saline -) 1,000 mls @ 100 mls/hr IV ASDIR [facility] Last Admin: 06/14/19 22:16 Dose: 100 mls/hr Lorazepam (Ativan -) 0.5 mg PO Q6H [facility] Stop: 06/15/19 23:01 Last Admin: 06/15/19 12:23 Dose: Not Given Lorazepam (Ativan -) 0.5 mg PO Q4H PRN PRN Reason: Symptoms of Withdrawal Stop: 06/16/19 00:00 Last Admin: 06/15/19 09:26 Dose: 0.5 mg Lorazepam (Ativan -) 0.5 mg PO ONCE ONE Stop: 06/16/19 05:01 Magnesium Oxide (Mag-Ox -) 800 mg PO BID [facility] Stop: 06/16/19 10:01 Last Admin: 06/15/19 09:25 Dose: 800 mg Magnesium Sulfate (Magnesium Sulfate) 2 gm IVPB ONCE ONE Stop: 06/15/19 12:43 Multivitamins/Minerals/Vitamin C (Tab-A-Vit -) 1 tab PO DAILY [facility] Last Admin: 06/15/19 09:26 Dose: 1 tab Potassium Phos/Sodium Phos (Phos-Nak Packet -) 2 packet PO BID [facility] Stop: 06/19/19 22:01 Senna (Senna -) 2 tab PO HS [facility] Last Admin: 06/14/19 22:16 Dose: 2 tab Thiamine HCl (Vitamin B1 -) 100 mg PO DAILY [facility] Last Admin: 06/15/19 09:25 Dose: 100 mg ASSESSMENT AND PLAN: 44 yof with PMHx to ETOH abuse, ecezema, severe malnutrition admitted with weakness, nausea, vomiting, multiple falls, found with ETOH hepatitis, severe elctrolyte abnormalities -ETOH abuse -ETOH hepatitis -Syncope/falls, suspect from volume depletion -Severe hypokalemia, hypophosphatemia, hypomagnesemia, hypnatremia -Metabolic/starvation acidosis -Severe protein calorie malnutrition -Suspected refeeding syndrome -Macrocytic anemia -Thrombocytopenia, suspect alcohol related bone marrow suppression Plan: LFTs improving overall, clinically better. Diarrhea, suspect refeeding syndrome. GI input noted, PO as tolerated. Aggressively replete electrolytes. Sinus tach on tele, ?occasional SVT, Will continue to replete electrolytes and monitor closely for now. Hold off on additional medications. Check Urine phos. Renal input. Follow up MRCP. Tremulous today. Ativan detox protocol, folate/thiamine. Will benefit from ETOH rehab when clinically improved, if agreeable. h/h inital drop suspect from hemodilution. B12/folate/iron panel noted. Plan for surveillance EGD prior to dc DVTPPX with SCDs given thrombocytopenia dispo pending clinical improvement. Discussed with patient, nursing, all questions answered.
[2019-06-15] MEDS ORDERED: MAGNESIUM SULF 50% (8.12 MEQ/2 ML-1 GM VIAL) IVPB ONE (13:00)
[2019-06-15] MEDS: NAPH,MB-DB/K PH,MBDB POWDER PACKET PO SCH ×2 (13:16→22:17)
[2019-06-15] MEDS: MINERAL OIL/PET HY-PHL TOPICAL OINTMENT 454 GM JAR TP SCH (14:28)
[2019-06-15 15:23] VITALS: BMI 18.8
--- NOTE | 2019-06-15 19:35 | CON.NEP ---
Consult Consult Specialty:: Nephrology Referred by:: dr adkins Reason for Consultation:: proteinuria - History of Present Illness History of Present Illness: 44 yo F admitted with abd pain, vomiting and alcohol withdrawal n/v possible syncope/seizure with ETOH dependance getting vitamin replacment, ivf, - Past Medical History FOREST MANAGER: No: Seizure, Vertigo ...: No Dermatology: Yes: Eczema - Past Surgical History Past Surgical History: Yes: None - Alcohol/Substance Use Hx Alcohol Use: Yes - Smoking History Smoking history: Current every day smoker Have you smoked in the past 12 months: Yes Aproximately how many cigarettes per day: 2 - Social History Usual Living Arrangement: With Significant 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 Home Medications - Allergies Allergies/Adverse Reactions: Allergies Allergy/AdvReac Type Severity Reaction Status Date / Time No Known Allergies Allergy Verified 06/11/19 21:14 Nephrology Consult - Height Height: 5 ft 4 in - Weight Weight: 110 lb - BMI Body Mass Index (BMI): 18.8 - Lab Results CBC,BMP: CBC, BMP 06/15/19 08:05 06/15/19 08:45 Anion Gap: Anion Gap Anion Gap 9 MMOL/L (8-16) 06/15/19 08:45 - Physical Examination Vital Signs: Vital Signs Temperature 98.6 F 06/15/19 14:00 Pulse Rate 130 H 06/15/19 14:00 Respiratory Rate 20 06/15/19 10:00 Blood Pressure 137/86 06/15/19 14:00 O2 Sat by Pulse Oximetry (%) 99 06/15/19 09:00 Assessment/Plan 44 yo f abd pain, n/v and possible syncope/seizure with ETOH withdrawal on vitamin replacment, ivf, on benzodiazepine protocol she urine protein on dipstick in concentrated specimen could be proteinuria from acute illness repeat u/a and urine qauntification
[2019-06-15] MEDS: SENNOSIDES 8.6MG TABLET (FP) PO SCH (22:13)
[2019-06-15] MEDS: SODIUM CHLORIDE 1,000 ML IV SCH (22:13)
[2019-06-16] MEDS ORDERED: LORazepam 0.5 MG TABLET PO ONE (05:00)
[2019-06-16 06:58] LABS: BASO % 1.2 % (0-2.0); EOS % 1.1 % (0-4.5); HEMATOCRIT 24.4 % (32.4-45.2); HEMOGLOBIN 8.3 GM/dL (10.7-15.3); LYMPH % 24.3 % (8-40); MCHC 34.2 g/dl (32.0-36.0); MEAN CELL VOLUME 118.8 fl (80-96); MEAN PLT VOLUME 9.9 fl (7.5-11.1); MONO % 14.2 % (3.8-10.2); NEUT % 59.2 % (42.8-82.8); PLATELET COUNT 77 K/MM3 (134-434); RBC 2.05 M/mm3 (3.60-5.2); RDW 18.3 % (11.6-15.6); WHITE BLOOD COUNT 2.7 K/mm3 (4.0-10.0)
[2019-06-16 07:34] LABS: ALBUMIN 2.7 g/dl (3.4-5.0); ALK PHOS 114 U/L (45-117); ANION GAP 8 MMOL/L (8-16); BILIRUBIN,TOTAL 3.9 mg/dL (0.2-1); CALCIUM 7.6 mg/dL (8.5-10.1); CHLORIDE 106 mmol/L (98-107); CO2 30 mmol/L (21-32); CREATININE 0.4 mg/dL (0.55-1.3); GLUCOSE,RANDOM 108 mg/dL (74-106); MAGNESIUM 1.6 mg/dL (1.8-2.4); POTASSIUM 3.4 mmol/L (3.5-5.1); SGOT/AST 165 U/L (15-37); SGPT/ALT 77 U/L (13-61); SODIUM 144 mmol/L (136-145); TOT PROT 5.3 g/dl (6.4-8.2)
[2019-06-16 07:42] LABS: BLOOD UREA NITROGEN < 1.0 mg/dL (7-18)
[2019-06-16] MEDS ORDERED: MAGNESIUM SULF 50% (8.12 MEQ/2 ML-1 GM VIAL) IVPB ONE ×2 (07:45→17:00)
[2019-06-16 08:01] LABS: MCH 40.6 pg (25.7-33.7)
[2019-06-16] MEDS: MULTIVITAMINS (DAILY MVI) TABLET (FP) PO SCH (10:10)
[2019-06-16] MEDS: MAGNESIUM OXIDE 400 MG TABLET (FP) PO SCH (10:10)
[2019-06-16] MEDS: FOLIC ACID 1 MG TABLET (FP) PO SCH (10:10)
[2019-06-16] MEDS: THIAMINE HCL 100 MG TABLET (FP) PO SCH (10:10)
[2019-06-16] MEDS: NAPH,MB-DB/K PH,MBDB POWDER PACKET PO SCH ×2 (10:11→21:38)
[2019-06-16] MEDS: MINERAL OIL/PET HY-PHL TOPICAL OINTMENT 454 GM JAR TP SCH (10:11)
--- NOTE | 2019-06-16 12:34 | PN ---
Physical Exam: SUBJECTIVE: Patient seen and examined, tolerating diet well, diarrhea almost resolved. No tremors or concerns otherwise. OBJECTIVE: Vital Signs Period Temp Pulse Resp BP Sys/Clifford Pulse Ox Last 24 Hr 98.2 F-99.1 F 104-130 20-22 129-141/82-99 99-99 Intake & Output 06/13/19 06/14/19 06/15/19 06/16/19 23:59 23:59 23:59 23:59 Intake Total 3710 3440 3990 1900 Balance 3710 3440 3990 1900 Weight 110 lb General: no acute distress HEENT: facial swelling Chest: CTAB, no rales or wheezing Abdomen:Soft, NT Extremities: 1+ non pitting edema CVS:S1S2 regular tachycardic Telemetry: Sinus tach upto 140s with activity, asymptomatic Laboratory Results - last 24 hr 06/15/19 06/16/19 06/16/19 08:05 06:26 06:26 WBC 2.7 L RBC 2.05 L Hgb 8.3 L Hct 24.4 L MCV 118.8 H MCH 40.6 H MCHC 34.2 RDW 18.3 H Plt Count 77 L MPV 9.9 Absolute Neuts (auto) 1.6 Neutrophils % 59.2 Lymphocytes % 24.3 Monocytes % 14.2 H Eosinophils % 1.1 Basophils % 1.2 Nucleated RBC % 0 Hypochromia 1+ Platelet Estimate Decreased Platelet Comment Present Polychromasia 1+ Poikilocytosis 1+ Basophilic Stippling 1+ Anisocytosis 2+ Microcytosis 0 Macrocytosis 2+ Spherocytes 1+ Target Cells 2+ Sodium 144 Potassium 3.4 L Chloride 106 Carbon Dioxide 30 Anion Gap 8 BUN < 1.0 L* Creatinine 0.4 L Est GFR (CKD-EPI)AfAm 144.77 Est GFR (CKD-EPI)NonAf 124.91 Random Glucose 108 H Calcium 7.6 L Phosphorus 3.0 Magnesium 1.6 L Total Bilirubin 3.9 H AST 165 H ALT 77 H Alkaline Phosphatase 114 Total Protein 5.3 L Albumin 2.7 L Active Medications Generic Name Dose Route Start Last Admin Trade Name Freq PRN Reason Stop Dose Admin Emollient Ointment 1 applic 06/12/19 10:00 06/16/19 10:11 Aquaphor - TP 1 applic DAILY LUCAS Administration Folic Acid 1 mg 06/12/19 10:00 06/16/19 10:10 Folic Acid - PO 1 mg DAILY LUCAS Administration Sodium Chloride 1,000 mls @ 100 mls/hr 06/14/19 22:00 06/15/19 22:13 Normal Saline - IV 100 mls/hr ASDIR LUCAS Administration Magnesium Sulfate 2 gm 06/16/19 17:00 Magnesium Sulfate IVPB 06/16/19 17:01 ONCE ONE Multivitamins/Minerals/Vitamin C 1 tab 06/12/19 10:00 06/16/19 10:10 Tab-A-Vit - PO 1 tab DAILY LUCAS Administration Potassium Phos/Sodium Phos 2 packet 06/15/19 12:45 06/16/19 10:11 Phos-Nak Packet - PO 06/19/19 22:01 2 packet BID LUCAS Administration Senna 2 tab 06/12/19 03:04 06/15/19 22:13 Senna - PO Not Given HS LUCAS Thiamine HCl 100 mg 06/12/19 10:00 06/16/19 10:10 Vitamin B1 - PO 100 mg DAILY LUCAS Administration ASSESSMENT/PLAN: 44 yof with PMHx to ETOH abuse, ecezema, severe malnutrition admitted with weakness, nausea, vomiting, multiple falls, found with ETOH hepatitis, severe elctrolyte abnormalities -ETOH abuse -ETOH hepatitis -Syncope/falls, suspect from volume depletion -Severe hypokalemia, hypophosphatemia, hypomagnesemia, hypnatremia -Metabolic/starvation acidosis -Severe protein calorie malnutrition -Suspected refeeding syndrome -Macrocytic anemia -Sinus tachycardia, ?SVT, suspect from hypovolumia/ETOh withdrawal/electrolyte abnormalities -Thrombocytopenia, suspect alcohol related bone marrow suppression Plan: LFTs plateaued, abdominal exam benign,clinically improved, tolerating diet, diarrhea improved. monitor for now. GI input noted. Follow up MRCP. Follow up for possible surveillance EGD prior to Dc. Withdrawal symptoms improved. off ativan detox. Folate/thiamine. Patient declines ETOH rehab for now. Electrolytes improving, replete aggressively. Renal input noted. DVTPPX with SCDs given thrombocytopenia, encourage ambulation PT eval. dispo in 48 hours if continues to improve. Discussed with patient, nursing in detail, all questions answered. Visit type - Emergency Visit Emergency Visit: Yes ED Registration Date: 06/12/19 Care time: The patient presented to the Emergency Department on the above date and was hospitalized for further evaluation of their emergent condition. - New Patient This patient is new to me today: No - Critical Care Critical Care patient: No - Discharge Referral Referred to [facility] No
[2019-06-16] MEDS ORDERED: LORazepam 2 MG/ML SDV VIAL IVPUSH SCH (12:36)
--- NOTE | 2019-06-16 13:29 | PN.GI ---
GI Progress Note Subjective: Awake Tolerating PO States feeling better No abdominal pain - Objective Vital Signs: Vital Signs Temperature 99.1 F 06/16/19 10:00 Pulse Rate 104 H 06/16/19 10:00 Respiratory Rate 22 H 06/16/19 10:00 Blood Pressure 129/82 06/16/19 10:00 O2 Sat by Pulse Oximetry (%) 99 06/16/19 08:34 Constitutional: Calm Eyes: No: Sclera Icterus Cardiovascular: Yes: Tachycardia Respiratory: Yes: CTA Bilaterally Gastrointestinal Inspection: No: Distention ...Auscultate: Yes: Normoactive Bowel Sounds ...Palpate: Yes: Hepatomegaly, Soft. No: Tenderness ...Percussion: No: Tympanitic Neurological: Yes: Alert. No: Asterixis Labs: CBC, BMP 06/16/19 06:26 06/16/19 06:26 INR, PTT INR 1.30 (0.83-1.09) H 06/13/19 10:42 Problem List - Problems (1) Alcoholic hepatitis Assessment/Plan: Clinically improving Supportive measures per primary team Repletion of lytes Thiamine, folate Code(s): K70.10 - ALCOHOLIC HEPATITIS WITHOUT ASCITES
--- NOTE | 2019-06-16 15:34 | PN ---
Progress Note (short form) - Note Progress Note: Problems Proteinuria on dipstick Anemia/pancytopenia Alcohol abuse alcoholic hepatitis Hypokalemia Hypomagnesium Current Medications Emollient Ointment (Aquaphor -) 1 applic TP DAILY [facility] Last Admin: 06/16/19 10:11 Dose: 1 applic Folic Acid (Folic Acid -) 1 mg PO DAILY [facility] Last Admin: 06/16/19 10:10 Dose: 1 mg Sodium Chloride (Normal Saline -) 1,000 mls @ 100 mls/hr IV ASDIR [facility] Last Admin: 06/15/19 22:13 Dose: 100 mls/hr Lorazepam (Ativan Injection -) 0.5 mg IVPUSH HEALTH AND SAFETY MANAGER [facility] Stop: 06/17/19 12:35 Magnesium Sulfate (Magnesium Sulfate) 2 gm IVPB ONCE ONE Stop: 06/16/19 17:01 Multivitamins/Minerals/Vitamin C (Tab-A-Vit -) 1 tab PO DAILY [facility] Last Admin: 06/16/19 10:10 Dose: 1 tab Potassium Phos/Sodium Phos (Phos-Nak Packet -) 2 packet PO BID [facility] Stop: 06/19/19 22:01 Last Admin: 06/16/19 10:11 Dose: 2 packet Senna (Senna -) 2 tab PO HS [facility] Last Admin: 06/15/19 22:13 Dose: Not Given Thiamine HCl (Vitamin B1 -) 100 mg PO DAILY [facility] Last Admin: 06/16/19 10:10 Dose: 100 mg Last Vital Signs Temp Pulse Resp BP Pulse Ox 98.0 F 101 H 22 H 133/87 99 06/16/19 14:00 06/16/19 14:00 06/16/19 14:00 06/16/19 14:00 06/16/19 08:34 Lungs clear Heart reg Abd soft nontender generalized edema tremulous CBC, BMP 06/16/19 06:26 06/16/19 06:26 IMP- proteinuria 2/2 acute illness and liver disease hypokalemia hypomagnesemia - nutritional deficinecy Plan- repeat U/a
[2019-06-16 17:50] LABS: EPI CELLS 3.3 /HPF (0-5/HPF); HYALINE CASTS 2 /lpf (0-8); PH,URINE 8.5 (5.0-8.0); URINE APPEARANCE CLEAR; URINE BACTERIA 54.2 /hpf (NEGATIVE); URINE BILIRUBIN NEGATIVE (NEGATIVE); URINE COLOR YELLOW; URINE GLUCOSE (UA) NEGATIVE (NEGATIVE); URINE KETONE NEGATIVE (NEGATIVE); URINE LEUK ESTERASE 1+ (NEGATIVE); URINE NITRITE NEGATIVE (NEGATIVE); URINE PROTEIN NEGATIVE (NEGATIVE); URINE RBC 1 /hpf (0-4); URINE WBC 4 /hpf (0-5)
[2019-06-16] MEDS ORDERED: MELATONIN 5 MG TABLETS PO ONE (20:54)
[2019-06-16] MEDS: SODIUM CHLORIDE 1,000 ML IV SCH (21:38)
[2019-06-16] MEDS: SENNOSIDES 8.6MG TABLET (FP) PO SCH (21:39)
[2019-06-17 06:29] LABS: BASO % 0.9 % (0-2.0); HEMATOCRIT 27.1 % (32.4-45.2); LYMPH % 18.3 % (8-40); MCHC 33.2 g/dl (32.0-36.0); MEAN CELL VOLUME 120.8 fl (80-96); MEAN PLT VOLUME 10.5 fl (7.5-11.1); MONO % 17.4 % (3.8-10.2); NEUT % 62.4 % (42.8-82.8); PLATELET COUNT 81 K/MM3 (134-434); RBC 2.24 M/mm3 (3.60-5.2); RDW 18.1 % (11.6-15.6); WHITE BLOOD COUNT 3.1 K/mm3 (4.0-10.0)
[2019-06-17 06:30] LABS: MCH 40.1 pg (25.7-33.7)
[2019-06-17 06:42] LABS: INR 1.49 (0.83-1.09); PROTHROMBIN TIME (PATIENT) 17.6 SEC (9.7-13.0)
[2019-06-17 06:47] LABS: ALBUMIN 2.8 g/dl (3.4-5.0); ALK PHOS 122 U/L (45-117); ANION GAP 7 MMOL/L (8-16); BILIRUBIN,DIRECT 4.2 mg/dL (0.0-0.2); BILIRUBIN,TOTAL 5.2 mg/dL (0.2-1); CALCIUM 8.1 mg/dL (8.5-10.1); CHLORIDE 102 mmol/L (98-107); CO2 30 mmol/L (21-32); CREATININE 0.4 mg/dL (0.55-1.3); GLUCOSE,RANDOM 107 mg/dL (74-106); MAGNESIUM 1.9 mg/dL (1.8-2.4); PHOSPHOROUS 3.5 mg/dL (2.5-4.9); POTASSIUM 3.2 mmol/L (3.5-5.1); SGOT/AST 163 U/L (15-37); SGPT/ALT 75 U/L (13-61); SODIUM 139 mmol/L (136-145); TOT PROT 5.4 g/dl (6.4-8.2)
[2019-06-17 07:38] LABS: BLOOD UREA NITROGEN < 1.0 mg/dL (7-18)
[2019-06-17] MEDS ORDERED: POTASSIUM CHLORIDE TABS 20 MEQ TABLET.ER (FP) PO ONE (08:09)
[2019-06-17] MEDS ORDERED: MAGNESIUM SULF 50% (8.12 MEQ/2 ML-1 GM VIAL) IVPB ONE (08:45)
[2019-06-17] MEDS: FOLIC ACID 1 MG TABLET (FP) PO SCH (09:59)
[2019-06-17] MEDS: MINERAL OIL/PET HY-PHL TOPICAL OINTMENT 454 GM JAR TP SCH (09:59)
[2019-06-17] MEDS: NAPH,MB-DB/K PH,MBDB POWDER PACKET PO SCH ×2 (09:59→22:06)
[2019-06-17] MEDS: THIAMINE HCL 100 MG TABLET (FP) PO SCH (09:59)
[2019-06-17] MEDS: MULTIVITAMINS (DAILY MVI) TABLET (FP) PO SCH (09:59)
[2019-06-17] MEDS: KCL 10 MEQ IVPB 10 MEQ/100 ML INFUS.BAG IVPB SCH ×3 (09:59→12:27)
--- NOTE | 2019-06-17 12:17 | PN ---
Progress Note, Physician History of Present Illness: Pt seen and examined at bedside. She is awake and alert. She denies shortness of breath. She is tolerating diet. - Current Medication List Current Medications: Active Medications Emollient Ointment (Aquaphor -) 1 applic TP DAILY [facility] Last Admin: 06/17/19 09:59 Dose: 1 applic Folic Acid (Folic Acid -) 1 mg PO DAILY [facility] Last Admin: 06/17/19 09:59 Dose: 1 mg Sodium Chloride (Normal Saline -) 1,000 mls @ 100 mls/hr IV ASDIR [facility] Last Admin: 06/16/19 21:38 Dose: 100 mls/hr Lorazepam (Ativan Injection -) 0.5 mg IVPUSH [employer] SUPERVISOR [facility] Stop: 06/17/19 12:35 Multivitamins/Minerals/Vitamin C (Tab-A-Vit -) 1 tab PO DAILY [facility] Last Admin: 06/17/19 09:59 Dose: 1 tab Potassium Phos/Sodium Phos (Phos-Nak Packet -) 2 packet PO BID [facility] Stop: 06/19/19 22:01 Last Admin: 06/17/19 09:59 Dose: 2 packet Senna (Senna -) 2 tab PO HS [facility] Last Admin: 06/16/19 21:39 Dose: Not Given Thiamine HCl (Vitamin B1 -) 100 mg PO DAILY [facility] Last Admin: 06/17/19 09:59 Dose: 100 mg - Objective Vital Signs: Vital Signs Temperature 98.2 F 06/17/19 10:00 Pulse Rate 117 H 06/17/19 10:00 Respiratory Rate 20 06/17/19 10:00 Blood Pressure 147/99 06/17/19 10:00 O2 Sat by Pulse Oximetry (%) 96 06/17/19 09:00 Constitutional: Yes: Calm Eyes: Yes: Conjunctiva Clear HENT: Yes: Atraumatic Neck: Yes: Supple Cardiovascular: Yes: S1, S2 Respiratory: Yes: CTA Bilaterally Gastrointestinal: Yes: Soft Genitourinary: Yes: WNL Musculoskeletal: Yes: WNL Edema: No Neurological: Yes: Oriented Psychiatric: Yes: Oriented Labs: CBC, BMP 06/17/19 05:10 06/17/19 05:10 INR, PTT INR 1.49 (0.83-1.09) H 06/17/19 05:10 Assessment/Plan Current Medications Generic Name Dose Route Start Last Admin Trade Name Tony PRN Reason Stop Dose Admin Emollient Ointment 1 applic 06/12/19 10:00 06/17/19 09:59 Aquaphor - TP 1 applic DAILY [facility] Administration Folic Acid 1 mg 06/12/19 10:00 06/17/19 09:59 Folic Acid - PO 1 mg DAILY [facility] Administration Sodium Chloride 1,000 mls @ 100 mls/hr 06/14/19 22:00 06/16/19 21:38 Normal Saline - IV 100 mls/hr ASDIR [facility] Administration Lorazepam 0.5 mg 06/16/19 12:36 Ativan Injection - IVPUSH 06/17/19 12:35 EXTRUSION SUPERVISOR [facility] Multivitamins/Minerals/Vitamin C 1 tab 06/12/19 10:00 06/17/19 09:59 Tab-A-Vit - PO 1 tab DAILY [facility] Administration Potassium Phos/Sodium Phos 2 packet 06/15/19 12:45 06/17/19 09:59 Phos-Nak Packet - PO 06/19/19 22:01 2 packet BID [facility] Administration Senna 2 tab 06/12/19 03:04 06/16/19 21:39 Senna - PO Not Given HS [facility]UCAS Thiamine HCl 100 mg 06/12/19 10:00 06/17/19 09:59 Vitamin B1 - PO 100 mg DAILY [facility] Administration Laboratory Tests 06/17/19 05:10 Potassium 3.2 L BUN < 1.0 L* Creatinine 0.4 L Phosphorus 3.5 Magnesium 1.9 Albumin 2.8 L Impression 1. hypokalemia 2. protienuria resolved 3. malnutrition 4. etoh abuse 5. alcoholic helatitis Plan - replace potassium - monitor lytes - decrease rate of fluids - can add potassium to fluids as well
[2019-06-17] MEDS ORDERED: SODIUM CHLORIDE 0.45%/POT 20 MEQ/1,000 ML INFUS.BAG IV SCH (12:30)
[2019-06-17] MEDS ORDERED: FUROSEMIDE 40 MG/4 ML INJECTABLE VIAL IVPUSH ONE (14:14)
[2019-06-17] MEDS ORDERED: LORazepam 2 MG/ML SDV VIAL IVPUSH SCH (14:20)
--- NOTE | 2019-06-17 14:35 | PN ---
Progress Note (short form) - Note Progress Note: GI follow up Feeling well, tolerating PO Vital Signs Temp 98.2 F 06/17/19 10:00 Pulse 117 H 06/17/19 10:00 Resp 20 06/17/19 10:00 BP 147/99 06/17/19 10:00 Pulse Ox 96 06/17/19 09:00 NAD +icterus No asterixis CBC, BMP 06/17/19 05:10 06/17/19 05:10 Hepatic Panel Total Bilirubin 5.2 mg/dL (0.2-1) H 06/17/19 05:10 Direct Bilirubin 4.2 mg/dL (0.0-0.2) H 06/17/19 05:10 AST 163 U/L (15-37) H 06/17/19 05:10 ALT 75 U/L (13-61) H 06/17/19 05:10 Alkaline Phosphatase 122 U/L (45-117) H 06/17/19 05:10 Albumin 2.8 g/dl (3.4-5.0) L 06/17/19 05:10 INR, PTT INR 1.49 (0.83-1.09) H 06/17/19 05:10 Impression - ETOH hepatitis. Improving. Electrolyte derangements from refeeding also improving. Continue repletion of lytes Thiamine, folate Trend liver tests Discussed ETOH cessation with patient - she is agreeable Should have outpatient GI/liver follow up once electrolytes stable
--- NOTE | 2019-06-17 16:37 | PN ---
Physical Exam: SUBJECTIVE: Patient seen and examined. She reports feeling better today. She has been tolerating diet well and denies abdominal pain, nausea, or vomiting. She also denies chest pain and shortness of breath. OBJECTIVE: Vital Signs Period Temp Pulse Resp BP Sys/Clifford Pulse Ox Last 24 Hr 98.2 F-99.2 F 101-122 0-22 96-147/60-99 95-96 GENERAL: The patient is awake, alert, and fully oriented, in no acute distress. HEAD: Facial swelling improved, jaundice is decreased, dry skin EYES: PERRL, extraocular movements intact, sclera icteric, conjunctiva clear. ENT: Ears normal, nares patent, moist mucous membranes. NECK: Trachea midline, full range of motion LUNGS: Breath sounds equal, clear to auscultation bilaterally, no accessory muscle use. HEART: Tachycardic and rhythm, no murmur ABDOMEN: Soft, nontender, nondistended, normoactive bowel sounds EXTREMITIES: 2+ pulses, warm, well-perfused, no edema. NEUROLOGICAL: Normal speech PSYCH: Normal mood, normal affect. SKIN: Warm, dry, normal turgor tele: tachycardia to 140s Laboratory Results - last 24 hr 06/16/19 06/16/19 06/16/19 17:00 17:00 17:00 WBC RBC Hgb Hct MCV MCH MCHC RDW Plt Count MPV Absolute Neuts (auto) Neutrophils % Lymphocytes % Monocytes % Eosinophils % Basophils % Nucleated RBC % PT with INR INR Sodium Potassium Chloride Carbon Dioxide Anion Gap BUN Creatinine Est GFR (CKD-EPI)AfAm Est GFR (CKD-EPI)NonAf Random Glucose Calcium Phosphorus Magnesium Total Bilirubin Direct Bilirubin AST ALT Alkaline Phosphatase Total Protein Albumin Urine Color Yellow Urine Appearance Clear Urine pH 8.5 H D Ur Specific [place] 1.007 L Urine Protein Negative Urine Glucose (UA) Negative Urine Ketones Negative Urine Blood 1+ H Urine Nitrite Negative Urine Bilirubin Negative Urine Urobilinogen 1.0 Ur Leukocyte Esterase 1+ H Urine WBC (Auto) 4 Urine RBC (Auto) 1 Urine Casts (Auto) 2 U Epithel Cells (Auto) 3.3 Urine Bacteria (Auto) 54.2 Ur Random Creatinine 15.0 L U Random Total Protein 9.5 06/17/19 06/17/19 06/17/19 05:10 05:10 05:10 WBC 3.1 L RBC 2.24 L Hgb 9.0 L Hct 27.1 L MCV 120.8 H MCH 40.1 H MCHC 33.2 RDW 18.1 H Plt Count 81 L MPV 10.5 Absolute Neuts (auto) 1.9 Neutrophils % 62.4 Lymphocytes % 18.3 D Monocytes % 17.4 H Eosinophils % 1.0 Basophils % 0.9 Nucleated RBC % 0 PT with INR 17.60 H INR 1.49 H Sodium 139 Potassium 3.2 L Chloride 102 Carbon Dioxide 30 Anion Gap 7 L BUN < 1.0 L* Creatinine 0.4 L Est GFR (CKD-EPI)AfAm 144.77 Est GFR (CKD-EPI)NonAf 124.91 Random Glucose 107 H Calcium 8.1 L Phosphorus 3.5 Magnesium 1.9 Total Bilirubin 5.2 H Direct Bilirubin 4.2 H AST 163 H ALT 75 H Alkaline Phosphatase 122 H Total Protein 5.4 L Albumin 2.8 L Urine Color Urine Appearance Urine pH Ur Specific [place] Urine Protein Urine Glucose (UA) Urine Ketones Urine Blood Urine Nitrite Urine Bilirubin Urine Urobilinogen Ur Leukocyte Esterase Urine WBC (Auto) Urine RBC (Auto) Urine Casts (Auto) U Epithel Cells (Auto) Urine Bacteria (Auto) Ur Random Creatinine U Random Total Protein Active Medications Generic Name Dose Route Start Last Admin Trade Name Freq PRN Reason Stop Dose Admin Emollient Ointment 1 applic 06/12/19 10:00 06/17/19 09:59 Aquaphor - TP 1 applic DAILY LUCAS Administration Folic Acid 1 mg 06/12/19 10:00 06/17/19 09:59 Folic Acid - PO 1 mg DAILY LUCAS Administration Potassium Chloride/Sodium Chloride 20 meq in 1,000 mls @ 75 mls/hr 06/17/19 12 :30 06/17/19 12:28 1/2ns+20meq Kcl IV 75 mls/hr ASDIR LUCAS Administration Lorazepam 1 mg 06/17/19 14:20 Ativan Injection - IVPUSH 06/18/19 14:19 SAW REPAIRER LUCAS Multivitamins/Minerals/Vitamin C 1 tab 06/12/19 10:00 06/17/19 09:59 Tab-A-Vit - PO 1 tab DAILY LUCAS Administration Potassium Phos/Sodium Phos 2 packet 06/15/19 12:45 06/17/19 09:59 Phos-Nak Packet - PO 06/19/19 22:01 2 packet BID LUCAS Administration Senna 2 tab 06/12/19 03:04 06/16/19 21:39 Senna - PO Not Given HS LUCAS Thiamine HCl 100 mg 06/12/19 10:00 06/17/19 09:59 Vitamin B1 - PO 100 mg DAILY LUCAS Administration ASSESSMENT/PLAN: Ms. Dutton is a 44 y/o female with alcohol use disorder and eczema presenting from home due to weakness and vomiting following stopping alcohol use approximately 1 week prior to presentation. Imaging shows liver steatosis and borderline CBD dilation. She was found to have alcoholic hepatitis with HAGMA. She was treated with Ativan for detox as well as supplemented K, Mg, and Phos. #acute alcoholic hepatitis 2/2 chronic EtOH use Improving. Tolerating diet. CT shows liver steatosis and no abdominal pain but elevated lipase 1229. T bili 6.5-->5.4. U/S showing borderline CBD dilation. Discriminant score not necessitating steroid use at this time. Hepatitis panel and HIV negative. -regular diet -1/2NS+20meq K -IV Zofran for nausea PRN -GI following -MRCP -dietary consult #alcohol use disorder -Ativan taper completed -vitamins -hydration -counseled on ETOH use risks, pt wants to attend AA after discharge #syncope likely 2/2 hypotension and dehydration Echo normal EF, trace to mild MR, mild TR, cannot r/o wall motion abnormalities due to technically difficult study. Trops negative x 2. -tele- tachycardic #high anion gap metabolic acidosis likely 2/2 heavy alcohol use, resolved AG 25 at presentation. lactic acid 4.8 at presentation. -monitor CMP #hyperbilirubinemia 5.2 -MRCP planned #hypokalemia 2.3 at admission -replete -recheck CMP #hypophosphatemia 0.2 at admission -replete -recheck Phos #hypomagnesemia 1.2 at admission -replete -recheck Mg #transaminitis 2/2 alcohol use Hepatic steatosis -monitor for continued downtrend #pancytopenia likely 2/2 fluid intake No major change overnight -IV fluids decreased -monitor #GANESH, resolved Cr 1.4 at admission, now 0.4 #diarrhea, resolved Possibly refeeding syndrome -monitor #macrocytosis 2/2 alcohol use MCV 114 at admission #Eczema -aquaphor #FEN 1/2NS 75mL/hr close monitoring of potassium, magnesium, and phosphate, replete as necessary regular diet GI ppx protonix 40mg DVT ppx SCDs Dispo Tele Visit type - Emergency Visit Emergency Visit: Yes ED Registration Date: 06/12/19 Care time: The patient presented to the Emergency Department on the above date and was hospitalized for further evaluation of their emergent condition. - New Patient This patient is new to me today: No - Critical Care Critical Care patient: No - Discharge Referral Referred to [facility] Med P.C.: No ATTENDING PHYSICIAN STATEMENT I saw and evaluated the patient. I reviewed the resident's note and discussed the case with the resident. I agree with the resident's findings and plan as documented. SUBJECTIVE: OBJECTIVE: ASSESSMENT AND PLAN:
[2019-06-17] MEDS ORDERED: IBUPROFEN 400 MG TABLET (FP) PO ONE (19:54)
[2019-06-17] MEDS: SENNOSIDES 8.6MG TABLET (FP) PO SCH (22:06)
[2019-06-18 07:18] LABS: ALBUMIN 2.6 g/dl (3.4-5.0); ALK PHOS 121 U/L (45-117); ANION GAP 7 MMOL/L (8-16); BILIRUBIN,TOTAL 5.4 mg/dL (0.2-1); CALCIUM 8.6 mg/dL (8.5-10.1); CHLORIDE 107 mmol/L (98-107); CO2 29 mmol/L (21-32); CREATININE 0.4 mg/dL (0.55-1.3); GLUCOSE,RANDOM 79 mg/dL (74-106); MAGNESIUM 1.6 mg/dL (1.8-2.4); PHOSPHOROUS 4.4 mg/dL (2.5-4.9); POTASSIUM 4.8 mmol/L (3.5-5.1); SGOT/AST 149 U/L (15-37); SGPT/ALT 73 U/L (13-61); SODIUM 142 mmol/L (136-145); TOT PROT 5.3 g/dl (6.4-8.2)
[2019-06-18 07:21] LABS: BLOOD UREA NITROGEN < 1.0 mg/dL (7-18)
[2019-06-18] MEDS ORDERED: MAGNESIUM SULF 50% (8.12 MEQ/2 ML-1 GM VIAL) IVPB ONE ×2 (09:00→15:00)
--- NOTE | 2019-06-18 09:34 | PN ---
Physical Exam: SUBJECTIVE: Patient seen and examined. She reports fever overnight as well as urinary frequency. She is tolerating diet well and is ambulating well. She denies chest pain, SOB, n/v/d. She reports BM 2 days ago and took a Senna overnight. Pt reports resting HR is normally 90-105. She is asymptomatic. OBJECTIVE: Vital Signs Period Temp Pulse Resp BP Sys/Clifford Pulse Ox Last 24 Hr 98.2 F-100.9 F 80-127 18-20 111-147/60-99 97 GENERAL: The patient is awake, alert, and fully oriented, in no acute distress. HEAD: Facial swelling improved, jaundice is decreased, dry skin improved EYES: PERRL, extraocular movements intact, sclera icteric improved, conjunctiva clear. ENT: Ears normal, nares patent, moist mucous membranes. NECK: Trachea midline, full range of motion LUNGS: Breath sounds equal, clear to auscultation bilaterally, no accessory muscle use. HEART: Sinus tachycardia, no murmur ABDOMEN: Soft, nontender, nondistended, normoactive bowel sounds EXTREMITIES: Warm, well-perfused, trace pedal edema. Mild tremor in UE. NEUROLOGICAL: Normal speech PSYCH: Normal mood, normal affect. SKIN: Warm, dry, normal turgor tele: tachycardia to 140s as previous days Laboratory Results - last 24 hr 06/18/19 05:50 Sodium 142 Potassium 4.8 Chloride 107 Carbon Dioxide 29 Anion Gap 7 L BUN < 1.0 L* Creatinine 0.4 L Est GFR (CKD-EPI)AfAm 144.77 Est GFR (CKD-EPI)NonAf 124.91 Random Glucose 79 Calcium 8.6 Phosphorus 4.4 Magnesium 1.6 L Total Bilirubin 5.4 H AST 149 H ALT 73 H Alkaline Phosphatase 121 H Total Protein 5.3 L Albumin 2.6 L Active Medications Generic Name Dose Route Start Last Admin Trade Name Freq PRN Reason Stop Dose Admin Emollient Ointment 1 applic 06/12/19 10:00 06/17/19 09:59 Aquaphor - TP 1 applic DAILY LUCAS Administration Folic Acid 1 mg 06/12/19 10:00 06/17/19 09:59 Folic Acid - PO 1 mg DAILY LUCAS Administration Potassium Chloride 10 meq/ 1,005 mls @ 42 mls/hr 06/18/19 10:00 Sodium Chloride IVPB Q24H LUCAS Lorazepam 1 mg 06/17/19 14:20 Ativan Injection - IVPUSH 06/18/19 14:19 TELEPHONE [employer]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 Dutton is a 44 y/o female with alcohol use disorder and eczema presenting from home due to weakness and vomiting following stopping alcohol use approximately 1 week prior to presentation. Imaging shows liver steatosis and borderline CBD dilation. She was found to have alcoholic hepatitis with HAGMA. She was treated with Ativan for detox as well as supplemented K, Mg, and Phos. Tbili was elevated and did not resolve, so an MRCP is planned. #acute alcoholic hepatitis 2/2 chronic EtOH use Improving. Tolerating diet. CT shows liver steatosis and no abdominal pain but elevated lipase 1229. T bili 6.5-->5.4. U/S showing borderline CBD dilation. Discriminant score not necessitating steroid use at this time. Hepatitis panel and HIV negative. -regular diet -fluids d/c'ed -IV Zofran for nausea PRN -GI following -MRCP -dietary consult #urinary frequency temp 100.9 overnight. UA on 06/16 +1 leuk esterase, +1 blood -urine culture pending #alcohol use disorder -Ativan taper completed -vitamins -hydration -counseled on ETOH use risks, pt wants to attend AA after discharge #syncope likely 2/2 hypotension and dehydration Echo normal EF, trace to mild MR, mild TR, cannot r/o wall motion abnormalities due to technically difficult study. Trops negative x 2. -tele- sinus tachycardia #high anion gap metabolic acidosis likely 2/2 heavy alcohol use, resolved AG 25 at presentation. lactic acid 4.8 at presentation. -monitor CMP #hyperbilirubinemia 5.4. Improved from admission. -MRCP planned #hypokalemia 2.3 at admission. Normalized now. -replete -recheck CMP #hypophosphatemia 0.2 at admission. Resolved. -replete -recheck Phos #hypomagnesemia 1.2 at admission. Improved. -replete -recheck Mg #transaminitis 2/2 alcohol use Hepatic steatosis -monitor for continued downtrend #pancytopenia likely 2/2 fluid intake No major change overnight -IV fluids decreased -monitor #GANESH, resolved Cr 1.4 at admission, now 0.4 #diarrhea, resolved Possibly refeeding syndrome -monitor #macrocytosis 2/2 alcohol use MCV 114 at admission -vitamin supplementation #Eczema -aquaphor #FEN PO fluids close monitoring of potassium, magnesium, and phosphate, replete as necessary regular diet GI ppx protonix 40mg DVT ppx SCDs Dispo Tele Visit type - Emergency Visit Emergency Visit: Yes ED Registration Date: 06/12/19 Care time: The patient presented to the Emergency Department on the above date and was hospitalized for further evaluation of their emergent condition. - New Patient This patient is new to me today: No - Critical Care Critical Care patient: No - Discharge Referral Referred to [facility] Med P.C.: No ATTENDING PHYSICIAN STATEMENT I saw and evaluated the patient. I reviewed the resident's note and discussed the case with the resident. I agree with the resident's findings and plan as documented. SUBJECTIVE: OBJECTIVE: ASSESSMENT AND PLAN:
[2019-06-18 09:45] LABS: EOS % 1.2 % (0-4.5); HEMATOCRIT 27.7 % (32.4-45.2); HEMOGLOBIN 9.2 GM/dL (10.7-15.3); LYMPH % 23.9 % (8-40); MCHC 33.2 g/dl (32.0-36.0); MEAN CELL VOLUME 121.5 fl (80-96); MEAN PLT VOLUME 11.5 fl (7.5-11.1); MONO % 21.2 % (3.8-10.2); NEUT % 52.7 % (42.8-82.8); PLATELET COUNT 97 K/MM3 (134-434); RBC 2.28 M/mm3 (3.60-5.2); RDW 17.5 % (11.6-15.6); WHITE BLOOD COUNT 3.6 K/mm3 (4.0-10.0)
[2019-06-18 09:47] LABS: MCH 40.3 pg (25.7-33.7)
[2019-06-18] MEDS: MULTIVITAMINS (DAILY MVI) TABLET (FP) PO SCH (09:48)
[2019-06-18] MEDS: MINERAL OIL/PET HY-PHL TOPICAL OINTMENT 454 GM JAR TP SCH (09:48)
[2019-06-18] MEDS: FOLIC ACID 1 MG TABLET (FP) PO SCH (09:48)
[2019-06-18] MEDS: NAPH,MB-DB/K PH,MBDB POWDER PACKET PO SCH ×2 (09:48→22:16)
[2019-06-18] MEDS: THIAMINE HCL 100 MG TABLET (FP) PO SCH (09:48)
[2019-06-18] MEDS ORDERED: POTASSIUM CHLORIDE 10 MEQ in SODIUM CHLORIDE 0.45% 1,000 ML IVPB SCH (10:00)
--- NOTE | 2019-06-18 11:47 | PN ---
Teaching Attending Note Name of Resident: Demetria Fatima ATTENDING PHYSICIAN STATEMENT I saw and evaluated the patient. I reviewed the resident's note and discussed the case with the resident. I agree with the resident's findings and plan as documented with exceptions below. SUBJECTIVE: Patient seen and examined, tolerating diet, no diarrhea improving. OBJECTIVE: Vital Signs Period Temp Pulse Resp BP Sys/Clifford Pulse Ox Last 24 Hr 98.2 F-100.9 F 80-127 18-20 111-145/60-93 97-100 Intake & Output 06/15/19 06/16/19 06/17/19 06/18/19 23:59 23:59 23:59 23:59 Intake Total 3990 4480 2390 1354 Balance 3990 4480 2390 1354 Weight 110 lb General: no acute distress HEENT: facial swelling Chest: CTAB, no rales or wheezing Abdomen:Soft, NT Extremities: 1+ non pitting edema CVS:S1S2 regular tachycardic Telemetry: Sinus tach upto 140s with activity, asymptomatic ASSESSMENT AND PLAN: 44 yof with PMHx to ETOH abuse, ecezema, severe malnutrition admitted with weakness, nausea, vomiting, multiple falls, found with ETOH hepatitis, severe elctrolyte abnormalities -ETOH abuse -ETOH hepatitis -Syncope/falls, suspect from volume depletion -Severe hypokalemia, hypophosphatemia, hypomagnesemia, hypnatremia -Metabolic/starvation acidosis -Severe protein calorie malnutrition -Suspected refeeding syndrome -Macrocytic anemia -Sinus tachycardia, ?SVT, suspect from hypovolumia/ETOh withdrawal/electrolyte abnormalities -Thrombocytopenia, suspect alcohol related bone marrow suppression Plan: LFTs plateaued, abdominal exam benign,clinically improved, tolerating diet, diarrhea resolved. monitor for now. GI input noted. Follow up MRCP. Outpatient follo wup. Withdrawal symptoms improved. off ativan detox. HR improved. Folate/thiamine. Patient declines ETOH rehab for now. Electrolytes improving, replete aggressively. Renal input noted. DVTPPX with SCDs given thrombocytopenia, encourage ambulation PT eval. dispo in 48 hours if continues to improve. Discussed with patient, nursing in detail, all questions answered.
--- NOTE | 2019-06-18 11:49 | PN ---
Teaching Attending Note Name of Resident: Demetria Fatima ATTENDING PHYSICIAN STATEMENT I saw and evaluated the patient. I reviewed the resident's note and discussed the case with the resident. I agree with the resident's findings and plan as documented with exceptions below. SUBJECTIVE: patient seen and examined, low grade temp overnight, no chills, nausea, vomiting , abdominal pain, new cough, dyspnea or concerns. OBJECTIVE: Vital Signs Period Temp Pulse Resp BP Sys/Clifford Pulse Ox Last 24 Hr 98.2 F-100.9 F 80-127 18-20 111-145/60-93 97-100 Intake & Output 06/15/19 06/16/19 06/17/19 06/18/19 23:59 23:59 23:59 23:59 Intake Total 3990 4480 2390 1354 Balance 3990 4480 2390 1354 Weight 110 lb General: no acute distress HEENT: facial swelling improved Chest: CTAB, no rales or wheezing Abdomen:Soft, NT, ND, no CVA or suprapubic tenderness Extremities: edema improved CVS:S1S2 regular , HR improved Telemetry: overall 90s-100s with occasional 140s, improved HR Active Medications Emollient Ointment (Aquaphor -) 1 applic TP DAILY [facility] Last Admin: 06/18/19 09:48 Dose: 1 applic Folic Acid (Folic Acid -) 1 mg PO DAILY [facility] Last Admin: 06/18/19 09:48 Dose: 1 mg Potassium Chloride 10 meq/ (Sodium Chloride) 1,005 mls @ 42 mls/hr IVPB Q24H [facility]UCAS Last Admin: 06/18/19 10:30 Dose: 42 mls/hr Lorazepam (Ativan Injection -) 1 mg IVPUSH 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 MIXER [facility] Stop: 06/18/19 14:19 Magnesium Sulfate (Magnesium Sulfate) 2 gm IVPB ONCE ONE Stop: 06/18/19 15:01 Multivitamins/Minerals/Vitamin C (Tab-A-Vit -) 1 tab PO DAILY [facility] Last Admin: 06/18/19 09:48 Dose: 1 tab Potassium Phos/Sodium Phos (Phos-Nak Packet -) 2 packet PO BID LUCAS Stop: 06/19/19 22:01 Last Admin: 06/18/19 09:48 Dose: 2 packet Senna (Senna -) 2 tab PO HS [facility] Last Admin: 06/17/19 22:06 Dose: 1 tab Thiamine HCl (Vitamin B1 -) 100 mg PO DAILY LUCAS Last Admin: 06/18/19 09:48 Dose: 100 mg Laboratory Results - last 24 hr 06/18/19 06/18/19 05:50 05:50 WBC 3.6 L RBC 2.28 L Hgb 9.2 L Hct 27.7 L MCV 121.5 H MCH 40.3 H MCHC 33.2 RDW 17.5 H Plt Count 97 L MPV 11.5 H Absolute Neuts (auto) 1.9 Neutrophils % 52.7 Lymphocytes % 23.9 D Monocytes % 21.2 H Eosinophils % 1.2 Basophils % 1.0 Nucleated RBC % 0 Sodium 142 Potassium 4.8 Chloride 107 Carbon Dioxide 29 Anion Gap 7 L BUN < 1.0 L* Creatinine 0.4 L Est GFR (CKD-EPI)AfAm 144.77 Est GFR (CKD-EPI)NonAf 124.91 Random Glucose 79 Calcium 8.6 Phosphorus 4.4 Magnesium 1.6 L Total Bilirubin 5.4 H AST 149 H ALT 73 H Alkaline Phosphatase 121 H Total Protein 5.3 L Albumin 2.6 L Microbiology 06/11/19 21:40 Blood - Peripheral Venous Blood Culture - Final NO GROWTH AFTER 5 DAYS INCUBATION 06/11/19 21:40 Blood - Peripheral Venous Blood Culture - Final NO GROWTH AFTER 5 DAYS INCUBATION CXr results reviewed ASSESSMENT AND PLAN: 44 yof with PMHx to ETOH abuse, ecezema, severe malnutrition admitted with weakness, nausea, vomiting, multiple falls, found with ETOH hepatitis, severe elctrolyte abnormalities -ETOH abuse -ETOH hepatitis -Syncope/falls, suspect from volume depletion -Severe hypokalemia, hypophosphatemia, hypomagnesemia, hypnatremia -Metabolic/starvation acidosis -Severe protein calorie malnutrition -Suspected refeeding syndrome -Macrocytic anemia -Sinus tachycardia, ?SVT, suspect from hypovolumia/ETOh withdrawal/electrolyte abnormalities -Thrombocytopenia, suspect alcohol related bone marrow suppression Plan: Low grade fever overnight, no focal s/s. Blood cx sent, ua neg. Incentive spirometry, monitor clinically. LFTs plateaued, abdominal exam benign,clinically improved, tolerating diet, diarrhea resolved. monitor for now. GI input noted. Follow up MRCP. Outpatient follow up. Withdrawal symptoms improved. off ativan detox. HR improved. Folate/thiamine. Patient declines ETOH rehab for now. Electrolytes improving, replete aggressively. Renal input noted. Dc IVF. DVTPPX with SCDs given thrombocytopenia, encourage ambulation PT eval noted. dispo in 24 hours pending above w/u and clinical improvement. Discussed with patient, nursing in detail, all questions answered.
[2019-06-18 12:04] LABS: ANISOCYTOSIS 2+; MACROCYTOSIS 1+; PLATELET ESTIMATE DECREASED; TARGET CELLS 1+
--- NOTE | 2019-06-18 12:40 | PN ---
Progress Note, Physician History of Present Illness: Pt seen and examined at bedside. She is awake and alert. She denies abd pain. She is tolerating diet. - Current Medication List Current Medications: Active Medications Emollient Ointment (Aquaphor -) 1 applic TP DAILY [facility] Last Admin: 06/18/19 09:48 Dose: 1 applic Folic Acid (Folic Acid -) 1 mg PO DAILY [facility] Last Admin: 06/18/19 09:48 Dose: 1 mg Lorazepam (Ativan Injection -) 1 mg IVPUSH KITCHENHAND [facility] Stop: 06/18/19 14:19 Magnesium Sulfate (Magnesium Sulfate) 2 gm IVPB ONCE ONE Stop: 06/18/19 15:01 Multivitamins/Minerals/Vitamin C (Tab-A-Vit -) 1 tab PO DAILY [facility] Last Admin: 06/18/19 09:48 Dose: 1 tab Potassium Phos/Sodium Phos (Phos-Nak Packet -) 2 packet PO BID [facility] Stop: 06/19/19 22:01 Last Admin: 06/18/19 09:48 Dose: 2 packet Senna (Senna -) 2 tab PO HS [facility] Last Admin: 06/17/19 22:06 Dose: 1 tab Thiamine HCl (Vitamin B1 -) 100 mg PO DAILY [facility] Last Admin: 06/18/19 09:48 Dose: 100 mg - Objective Vital Signs: Vital Signs Temperature 98.2 F 06/18/19 09:00 Pulse Rate 105 H 06/18/19 09:00 Respiratory Rate 20 06/18/19 09:00 Blood Pressure 141/93 06/18/19 09:00 O2 Sat by Pulse Oximetry (%) 100 06/18/19 09:00 Constitutional: Yes: Calm Eyes: Yes: Sclera Icterus HENT: Yes: Atraumatic Neck: Yes: Supple Cardiovascular: Yes: S1, S2 Respiratory: Yes: CTA Bilaterally Gastrointestinal: Yes: WNL Genitourinary: Yes: WNL Musculoskeletal: Yes: WNL Edema: No Neurological: Yes: Oriented Psychiatric: Yes: Oriented Labs: CBC, BMP 06/18/19 05:50 06/18/19 05:50 INR, PTT INR 1.49 (0.83-1.09) H 06/17/19 05:10 Assessment/Plan Current Medications Generic Name Dose Route Start Last Admin Trade Name Freq PRN Reason Stop Dose Admin Emollient Ointment 1 applic 10/09/19 10:00 06/18/19 09:48 Aquaphor - TP 1 applic DAILY LUCAS Administration Folic Acid 1 mg 06/12/19 10:00 06/18/19 09:48 Folic Acid - PO 1 mg DAILY LUCAS Administration Lorazepam 1 mg 06/17/19 14:20 Ativan Injection - IVPUSH 06/18/19 14:19 KITCHENHAND LUCAS Magnesium Sulfate 2 gm 06/18/19 15:00 Magnesium Sulfate IVPB 06/18/19 15:01 ONCE ONE Multivitamins/Minerals/Vitamin C 1 tab 06/12/19 10:00 06/18/19 09:48 Tab-A-Vit - PO 1 tab DAILY [facility]UCAS Administration Potassium Phos/Sodium Phos 2 packet 06/15/19 12:45 06/18/19 09:48 Phos-Nak Packet - PO 06/19/19 22:01 2 packet BID LUCAS Administration Senna 2 tab 06/12/19 03:04 06/17/19 22:06 Senna - PO 1 tab HS [facility]UCAS Administration Thiamine HCl 100 mg 06/12/19 10:00 06/18/19 09:48 Vitamin B1 - PO 100 mg DAILY [facility]UCAS Administration Impression 1. hypokalemia 2. protienuria resolved 3. malnutrition 4. etoh abuse 5. alcoholic helatitis Plan - decrease fluids - monitor lytes - replace mag - decrease rate of fluids
[2019-06-18] MEDS ORDERED: IBUPROFEN 400 MG TABLET (FP) PO ONE (17:17)
[2019-06-18] MEDS ORDERED: LORazepam 2 MG/ML SDV VIAL ONE (20:37)
[2019-06-18] MEDS: SENNOSIDES 8.6MG TABLET (FP) PO SCH (22:16)
[2019-06-18] MEDS: MAGNESIUM OXIDE 400 MG TABLET (FP) PO SCH (22:16)
[2019-06-19 07:44] LABS: ALBUMIN 2.4 g/dl (3.4-5.0); BILIRUBIN,TOTAL 5.5 mg/dL (0.2-1); CALCIUM 8.4 mg/dL (8.5-10.1); CREATININE 0.3 mg/dL (0.55-1.3); MAGNESIUM 1.8 mg/dL (1.8-2.4); PHOSPHOROUS 4.8 mg/dL (2.5-4.9); POTASSIUM 4.9 mmol/L (3.5-5.1); TOT PROT 5.1 g/dl (6.4-8.2)
[2019-06-19 07:48] LABS: BLOOD UREA NITROGEN 2.8 mg/dL (7-18)
[2019-06-19] MEDS: NAPH,MB-DB/K PH,MBDB POWDER PACKET PO SCH (11:32)
[2019-06-19] MEDS: MAGNESIUM OXIDE 400 MG TABLET (FP) PO SCH (11:33)
[2019-06-19] MEDS: FOLIC ACID 1 MG TABLET (FP) PO SCH (11:33)
[2019-06-19] MEDS: MULTIVITAMINS (DAILY MVI) TABLET (FP) PO SCH (11:33)
[2019-06-19] MEDS: THIAMINE HCL 100 MG TABLET (FP) PO SCH (11:34)
[2019-06-19] MEDS: MINERAL OIL/PET HY-PHL TOPICAL OINTMENT 454 GM JAR TP SCH (11:35)
--- NOTE | 2019-06-19 12:54 | PN ---
Progress Note, Physician History of Present Illness: Pt seen and examined at bedside. She is awake and alert. She is tolerating diet. - Current Medication List Current Medications: Active Medications Emollient Ointment (Aquaphor -) 1 applic TP DAILY [facility] Last Admin: 06/19/19 11:35 Dose: 1 applic Folic Acid (Folic Acid -) 1 mg PO DAILY [facility] Last Admin: 06/19/19 11:33 Dose: 1 mg Magnesium Oxide (Mag-Ox -) 400 mg PO BID [facility] Last Admin: 06/19/19 11:33 Dose: 400 mg Multivitamins/Minerals/Vitamin C (Tab-A-Vit -) 1 tab PO DAILY [facility] Last Admin: 06/19/19 11:33 Dose: 1 tab Potassium Phos/Sodium Phos (Phos-Nak Packet -) 2 packet PO BID [facility] Stop: 06/19/19 22:01 Last Admin: 06/19/19 11:32 Dose: 2 packet Senna (Senna -) 2 tab PO HS [facility] Last Admin: 06/18/19 22:16 Dose: Not Given Thiamine HCl (Vitamin B1 -) 100 mg PO DAILY [facility] Last Admin: 06/19/19 11:34 Dose: 100 mg - Objective Vital Signs: Vital Signs Temperature 98.6 F 06/19/19 09:00 Pulse Rate 85 06/19/19 09:00 Respiratory Rate 20 06/19/19 09:00 Blood Pressure 100/66 06/19/19 09:00 O2 Sat by Pulse Oximetry (%) 100 06/19/19 09:00 Constitutional: Yes: Calm Eyes: Yes: Sclera Icterus HENT: Yes: Atraumatic Neck: Yes: Supple Cardiovascular: Yes: S1, S2 Respiratory: Yes: CTA Bilaterally Gastrointestinal: Yes: Soft Genitourinary: Yes: WNL Musculoskeletal: Yes: WNL Edema: No Neurological: Yes: Oriented Psychiatric: Yes: Oriented Labs: CBC, BMP 06/18/19 05:50 06/19/19 06:31 INR, PTT INR 1.49 (0.83-1.09) H 06/17/19 05:10 Assessment/Plan Current Medications Generic Name Dose Route Start Last Admin Trade Name Tony PRN Reason Stop Dose Admin Emollient Ointment 1 applic 06/12/19 10:00 06/19/19 11:35 Aquaphor - TP 1 applic DAILY [facility]AS Administration Folic Acid 1 mg 06/12/19 10:00 06/19/19 11:33 Folic Acid - PO 1 mg DAILY [facility] Administration Magnesium Oxide 400 mg 06/18/19 22:00 06/19/19 11:33 Mag-Ox - PO 400 mg BID [facility]AS Administration Multivitamins/Minerals/Vitamin C 1 tab 06/12/19 10:00 06/19/19 11:33 Tab-A-Vit - PO 1 tab DAILY [facility] Administration Potassium Phos/Sodium Phos 2 packet 06/15/19 12:45 06/19/19 11:32 Phos-Nak Packet - PO 06/19/19 22:01 2 packet BID [facility]AS Administration Senna 2 tab 06/12/19 03:04 06/18/19 22:16 Senna - PO Not Given HS [facility] Thiamine HCl 100 mg 06/12/19 10:00 06/19/19 11:34 Vitamin B1 - PO 100 mg DAILY [facility] Administration Impression 1. hypokalemia 2. protienuria resolved 3. malnutrition 4. etoh abuse 5. alcoholic helatitis Plan - can d/c fluids - pt tolerating diet - monitor lytes - will need GI follow up - recommend AA
[2019-06-19] MEDS ORDERED: metoPROLOL SUCCINATE 25 MG TAB.SR.24H (FP) PO SCH (13:45)
--- NOTE | 2019-06-19 13:59 | PN ---
Teaching Attending Note Name of Resident: Demetria Fatima ATTENDING PHYSICIAN STATEMENT I saw and evaluated the patient. I reviewed the resident's note and discussed the case with the resident. I agree with the resident's findings and plan as documented with exceptions below. SUBJECTIVE: Patient seen and examined. No complaints, tolerating diet, no diarrhea, eager to go home. OBJECTIVE: Vital Signs Period Temp Pulse Resp BP Sys/Clifford Pulse Ox Last 24 Hr 98.2 F-99.4 F 78-112 18-20 100-132/66-95 100-100 Intake & Output 06/16/19 06/17/19 06/18/19 06/19/19 23:59 23:59 23:59 23:59 Intake Total 4480 2390 2562 200 Balance 4480 2390 2562 200 ASSESSMENT AND PLAN: 44 yof with PMHx to ETOH abuse, ecezema, severe malnutrition admitted with weakness, nausea, vomiting, multiple falls, found with ETOH hepatitis, severe elctrolyte abnormalities -ETOH abuse -ETOH hepatitis -Syncope/falls, suspect from volume depletion -Severe hypokalemia, hypophosphatemia, hypomagnesemia, hypnatremia -Metabolic/starvation acidosis -Severe protein calorie malnutrition -Suspected refeeding syndrome -Macrocytic anemia -Sinus tachycardia, ?SVT, suspect from hypovolumia/ETOh withdrawal/electrolyte abnormalities -Thrombocytopenia, suspect alcohol related bone marrow suppression Plan: Doing well tolerating diet, electrolytes improved Start low dose beta vivian. 2D echo noted. Await MRCP results LFTs overall plateaued Strict ETOH cessation, patient has been counseled on multiple occasions. 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 Discussed with patient and nursing, all questions answered.
[2019-06-19 14:14] VITALS: BP 132/86; PULSE 99; TEMP 98.9
--- NOTE | 2019-06-19 15:35 | PN ---
Physical Exam: SUBJECTIVE: Patient seen and examined. She was feeling tired this morning. She denies fever, chills, chest pain, shortness of breath, n/v. She had one loose stool yesterday. She is tolerating diet well, otherwise. OBJECTIVE: Vital Signs Period Temp Pulse Resp BP Sys/Clifford Pulse Ox Last 24 Hr 98.2 F-99.4 F 78-112 18-20 100-132/66-95 100-100 Morning exam: GENERAL: The patient is awake, alert, and fully oriented, in no acute distress. HEAD: Mild facial swelling, no jaundice, dry skin improved EYES: PERRL, extraocular movements intact, sclera icteric improved, conjunctiva clear. ENT: Ears normal, nares patent, moist mucous membranes. NECK: Trachea midline, full range of motion LUNGS: Breath sounds equal, clear to auscultation bilaterally, no accessory muscle use. HEART: RRR, no murmur ABDOMEN: Soft, nontender, nondistended, normoactive bowel sounds EXTREMITIES: Warm, well-perfused, no edema. Tremor in UE. NEUROLOGICAL: Normal speech PSYCH: Normal mood, normal affect. SKIN: Warm, dry, normal turgor tele: Overnight no significant episodes of tachycardia. This afternoon pt had 9 beat run SVT. Laboratory Results - last 24 hr 06/19/19 06:31 Sodium 141 Potassium 4.9 Chloride 107 Carbon Dioxide 28 Anion Gap 6 L BUN 2.8 L* Creatinine 0.3 L Est GFR (CKD-EPI)AfAm 159.14 Est GFR (CKD-EPI)NonAf 137.31 Random Glucose 81 Calcium 8.4 L Phosphorus 4.8 Magnesium 1.8 Total Bilirubin 5.5 H AST 151 H ALT 67 H Alkaline Phosphatase 117 Total Protein 5.1 L Albumin 2.4 L Lipase 168 Active Medications Generic Name Dose Route Start Last Admin Trade Name Freq PRN Reason Stop Dose Admin Emollient Ointment 1 applic 06/12/19 10:00 06/19/19 11:35 Aquaphor - TP 1 applic DAILY LUCAS Administration Folic Acid 1 mg 06/12/19 10:00 06/19/19 11:33 Folic Acid - PO 1 mg DAILY LUCAS Administration Magnesium Oxide 400 mg 06/18/19 22:00 06/19/19 11:33 Mag-Ox - PO 400 mg BID LUCAS Administration Metoprolol Succinate 12.5 mg 06/19/19 13:45 06/19/19 14:14 Toprol Xl - PO 12.5 mg DAILY LUCAS Administration Multivitamins/Minerals/Vitamin C 1 tab 06/12/19 10:00 06/19/19 11:33 Tab-A-Vit - PO 1 tab DAILY LUCAS Administration Potassium Phos/Sodium Phos 2 packet 06/15/19 12:45 06/19/19 11:32 Phos-Nak Packet - PO 06/19/19 22:01 2 packet BID LUCAS Administration Senna 2 tab 06/12/19 03:04 06/18/19 22:16 Senna - PO Not Given HS LUCAS Thiamine HCl 100 mg 06/12/19 10:00 06/19/19 11:34 Vitamin B1 - PO 100 mg DAILY LUCAS Administration ASSESSMENT/PLAN: Ms. Dutton is a 44 y/o female with alcohol use disorder and eczema presenting from home due to weakness and vomiting following stopping alcohol use approximately 1 week prior to presentation. Imaging shows liver steatosis and borderline CBD dilation. She was found to have alcoholic hepatitis with HAGMA. She was treated with Ativan for detox as well as supplemented K, Mg, and Phos. Tbili was elevated. MRCP suggestive of pancreatitis. #tachycardia Had 9 beat run of SVT on tele. -Toprol 12.5mg daily -continue to monitor #hyperbilirubinemia 5.5. MRCP showed severe fatty infiltration of liver, peripancreatic edema suggestive of pancreatitis; perihepatic, perisplenic, and paracolic gutter ascites suggestive of 3rd spacing; no biliary duct dilatation or filling defect appreciated but images have significant motion. #acute alcoholic hepatitis 2/2 chronic EtOH use Improving. Tolerating diet. CT shows liver steatosis and no abdominal pain but elevated lipase 1229. T bili 6.5-->5.4. U/S showing borderline CBD dilation. Discriminant score not necessitating steroid use at this time. Hepatitis panel and HIV negative. -regular diet -fluids d/c'ed -IV Zofran for nausea PRN -GI following -dietary consult #transaminitis 2/2 alcohol use Hepatic steatosis -monitor for continued downtrend #hypokalemia 2.3 at admission. Normalized now. -replete -recheck CMP #hypophosphatemia 0.2 at admission. Resolved. -replete -recheck Phos #hypomagnesemia 1.2 at admission. Improved. -replete -recheck Mg #alcohol use disorder Ativan taper completed. -vitamins -encourage hydration and nutrition -counseled on ETOH use risks, pt wants to attend AA after discharge #syncope likely 2/2 hypotension and dehydration Echo normal EF, trace to mild MR, mild TR, cannot r/o wall motion abnormalities due to technically difficult study. Trops negative x 2. -tele monitoring #high anion gap metabolic acidosis likely 2/2 heavy alcohol use, resolved AG 25 at presentation. lactic acid 4.8 at presentation. -monitor CMP #urinary frequency UA on 06/16 +1 leuk esterase, +1 blood. Urine culture negative. #GANESH, resolved Cr 1.4 at admission, now 0.4 #diarrhea, resolved Possibly refeeding syndrome -monitor #macrocytosis 2/2 alcohol use MCV 114 at admission -vitamin supplementation #Eczema -aquaphor FEN PO fluids close monitoring of potassium, magnesium, and phosphate, replete as necessary regular diet GI ppx protonix 40mg DVT ppx SCDs Dispo Tele ATTENDING PHYSICIAN STATEMENT I saw and evaluated the patient. I reviewed the resident's note and discussed the case with the resident. I agree with the resident's findings and plan as documented. SUBJECTIVE: OBJECTIVE: ASSESSMENT AND PLAN:
--- NOTE | 2019-06-19 16:18 | PN.GI ---
GI Progress Note Subjective: Pt seen/examined at bedside, feeling better, denies abdominal pain, n/v, tolerating diet, had MRI yesterday. - Objective Vital Signs: Vital Signs Temperature 98.9 F 06/19/19 14:04 Pulse Rate 99 H 06/19/19 14:04 Respiratory Rate 20 06/19/19 14:04 Blood Pressure 132/86 06/19/19 14:04 O2 Sat by Pulse Oximetry (%) 100 06/19/19 09:00 Constitutional: Well Nourished, No Distress, Calm Cardiovascular: Yes: WNL, Regular Rate and Rhythm Respiratory: Yes: WNL, Regular, CTA Bilaterally ...Palpate: Yes: Other (Abd soft, nt, nd) Labs: CBC, BMP 06/18/19 05:50 06/19/19 06:31 INR, PTT INR 1.49 (0.83-1.09) H 06/17/19 05:10 Assessment/Plan 44yo female with etoh hepatitis clinically improving. MRCP limited though revealing normal liver size with fatty infiltration, peripancreatic edema and possible pericholecystic fluid (no stones). No obvious biliary dilation or obstructive process. Likely alcoholic liver disease cannot exclude underlying cirrhosis. Also likely resolving pancreatitis in setting of etoh. Abd exam benign. -Recommend continue supportive measures -Diet as tolerated -Monitor and replete electrolytes -Continue to monitor LFT trend -Strict etoh abstinence -Pending disposition recommend close outpt GI/liver follow up
--- NOTE | 2019-06-19 19:31 | DS ---
Physical Exam: SUBJECTIVE: Patient seen and examined. She was feeling tired this morning. She denies fever, chills, chest pain, shortness of breath, n/v. She had one loose stool yesterday. She is tolerating diet well, otherwise. OBJECTIVE: Vital Signs Period Temp Pulse Resp BP Sys/Clifford Pulse Ox Last 24 Hr 98.2 F-99.4 F 78-100 18-20 100-132/66-95 100-100 PHYSICAL EXAM GENERAL: The patient is awake, alert, and fully oriented, in no acute distress. HEAD: Mild facial swelling, no jaundice, dry skin improved EYES: PERRL, extraocular movements intact, sclera icteric improved, conjunctiva clear. ENT: Ears normal, nares patent, moist mucous membranes. NECK: Trachea midline, full range of motion LUNGS: Breath sounds equal, clear to auscultation bilaterally, no accessory muscle use. HEART: RRR, no murmur ABDOMEN: Soft, nontender, nondistended, normoactive bowel sounds EXTREMITIES: Warm, well-perfused, no edema. Tremor in UE. NEUROLOGICAL: Normal speech PSYCH: Normal mood, normal affect. SKIN: Warm, dry, normal turgor tele: Overnight no significant episodes of tachycardia. This afternoon pt had 9 beat run SVT. LABS Laboratory Results - last 24 hr 06/19/19 06:31 Sodium 141 Potassium 4.9 Chloride 107 Carbon Dioxide 28 Anion Gap 6 L BUN 2.8 L* Creatinine 0.3 L Est GFR (CKD-EPI)AfAm 159.14 Est GFR (CKD-EPI)NonAf 137.31 Random Glucose 81 Calcium 8.4 L Phosphorus 4.8 Magnesium 1.8 Total Bilirubin 5.5 H AST 151 H ALT 67 H Alkaline Phosphatase 117 Total Protein 5.1 L Albumin 2.4 L Lipase 168 HOSPITAL COURSE: Ms. Dutton is a 44 y/o female with alcohol use disorder and eczema presenting from home due to weakness, vomiting, and syncope following stopping alcohol use approximately 1 week prior to presentation. Imaging shows liver steatosis and borderline CBD dilation. She was found to have alcoholic hepatitis with HAGMA. Echo normal EF, trace to mild MR, mild TR, cannot r/o wall motion abnormalities due to technically difficult study. Trops negative x 2. She was treated with Ativan taper for detox as well as supplemented K, Mg, and Phos. Tbili and liver enzymes were elevated. MRCP showed severe fatty infiltration of liver, peripancreatic edema suggestive of pancreatitis; perihepatic, perisplenic, and paracolic gutter ascites suggestive of 3rd spacing ; no biliary duct dilatation or filling defect appreciated but images have significant motion. The day of discharge pt had 9 beat run of SVT. She had tachycardia up until the day of discharge. She reports her mother has SVT. She was given metoprolol and instructed to follow up out pt. Pt also had macrocytosis 2/2 to alcohol use. Pt was counseled on the need to stop drinking. She did not want in pt rehab. She was in agreement to attend AA. She was also instructed to follow up with primary care to monitor her pancreatitis and tachycardia. Date of Admission:06/12/19 Date of Discharge: 06/19/19 Minutes to complete discharge: 35 Discharge Summary Problems reviewed: Yes Reason For Visit: PANCREATITIS Current Active Problems Alcoholic hepatitis (Acute) Hyperbilirubinemia (Acute) Transaminitis (Acute) Condition: Stable - Instructions Diet, Activity, Other Instructions: Hospital visit: You were admitted for alcohol withdrawal and completed detoxification. Your electrolytes were low and were repleted. Abdominal MRI revealed you have pancreatitis. You are now ready to go home. Your bilirubin level and liver enzymes were elevated and ultrasound showed liver disease. Medications: Folic acid 1mg once daily Multivitamin once daily Vitamin B1 (thiamine) 100mg once daily Magnesium 800mg once daily for 5 more days Metoprolol XL 12.5 mg daily Follow up: Primary care in 1-2 weeks to check labs (CBC, BMP, LFT). If you do not have a primary care doctor, you can follow up with Dr. Fatima or Dr Anthony in the [facility]. You will need regular monitoring of your blood count, electrolytes, liver enzymes and bilirubin level Dr. Bach, gastroenterology, or liver specialist in 2-3 weeks for bilirubin and liver disease as well as your fatty liver. Dr. Mccormick (aerial survey technician) for additional testing for protein in urine and monitoring your kidneys. Instructions: It is important that you stop drinking alcohol. Your liver is showing signs of disease and will get worse if you do not stop. You could be at increased risk of bleeding, stomach ulcers and bleeds, liver cancer, falls, and seizures. You should consider an inpatient rehab program to help give you the tools to stay sober. If not, use the AA tequila that your friend showed you to find meetings. Please refrain from using benzodiazepines or alcohol. Avoid tylenol or NSAIDS such as ibuprofen, motrin without discussion with your doctor. If you notice any new dizziness or concerns on new medication metoprolol, please stop the medication and notify your doctor or come to ED. IT IS VERY IMPORTANT THAT YOU MAINTAIN CLOSE FOLLOW UP WITH YOUR DOCTORS AND HAVE REGULAR BLOOD WORK RECOMMENDED ABOVE. Eat a diet that is rich in vitamins and minerals. This includes lean meats, whole grains, fruits, and vegetables. Keep hydrated by drinking 6-8 glasses of water a day. Return to the emergency room if you experience withdrawal symptoms again. Also, return if you begin vomiting blood, have dark stools, lose consciousness, or have a fall with injury,severe belly pain, inability to eat or any new concerns. . Referrals: Richard Peace MD [Staff Physician] - 2 Weeks (Dr. Akua Anthony) Felix Bach DO [Staff Physician] - 2 Weeks Natividad Mccormick MD [Staff Physician] - Disposition: HOME - Home Medications Comprehensive Discharge Medication List: Ambulatory Orders Folic Acid - 1 mg PO DAILY 30 Days #30 tablet 06/19/19 Magnesium Oxide [Mag-Ox -] 800 mg PO DAILY 5 Days #10 tablet 06/19/19 Metoprolol Succinate [Toprol XL -] 12.5 mg PO DAILY #15 tab.sr.24h 06/19/19 Multivitamins [Multivit ([facility] Formulary)] 1 tab PO DAILY 30 Days #30 tab Thiamine HCl [Vitamin B1 -] 100 mg PO DAILY 30 Days #30 tablet 06/19/19 This patient is new to me today: No Emergency Visit: Yes ED Registration Date: 06/12/19 Care time: The patient presented to the Emergency Department on the above date and was hospitalized for further evaluation of their emergent condition. Critical Care patient: No - Discharge Referral Referred to [facility] No ATTENDING PHYSICIAN STATEMENT I saw and evaluated the patient. I reviewed the resident's note and discussed the case with the resident. I agree with the resident's findings and plan as documented. SUBJECTIVE: OBJECTIVE: ASSESSMENT AND PLAN:
== END 2019-06-19 21:51 | disposition home or self-care (01) | DRG 280 ==
LOC: JER 20:50 → JERBED 06-12 01:16 → J4W 06-12 16:26
PROVIDERS: ADMIT Internal Medicine; ATTEND Hospitalist
DX: K70.30 Alcoholic cirrhosis of liver without ascites (principal); K85.90 Acute pancreatitis without necrosis or infection, unspecified; J98.11 Atelectasis; F10.20 Alcohol dependence, uncomplicated; K52.9 Noninfective gastroenteritis and colitis, unspecified; E87.2 Acidosis; E87.3 Alkalosis; R55 Syncope and collapse; E86.0 Dehydration; K59.09 Other constipation; N17.9 Acute kidney failure, unspecified; L30.9 Dermatitis, unspecified; E87.1 Hypo-osmolality and hyponatremia; E87.6 Hypokalemia; I47.1 Supraventricular tachycardia; E83.42 Hypomagnesemia; E87.8 Other disorders of electrolyte and fluid balance, not elsewhere classified; D69.6 Thrombocytopenia, unspecified; E43 Unspecified severe protein-calorie malnutrition; R29.6 Repeated falls; K76.0 Fatty (change of) liver, not elsewhere classified; Z68.1 Body mass index [BMI] 19.9 or less, adult
CPT/HCPCS: 36415; 36600; 70450-TC; 71045-TC-FY; 74177-TC; 74181-TC; 76705-TC; 80048; 80051; 80053; 80307; 81003; 82140; 82248; 82375; 82550; 82565; 82607; 82728; 82746; 82803; 82962; 83050; 83540; 83550; 83605; 83690; 83735; 83930; 83935; 84100; 84156; 84484; 84703; 85025; 85610; 85730; 86704; 86706; 86707; 86708; 86709; 87040; 87086; 87340; 87389; 87522; 93005; 93010; 93306-TC; 97116-GP; 97161-GP; 99285-25; J3480; J7030

== ENCOUNTER 2023-04-18 18:36 | Inpatient (IN) | payer OTHER ==
[2023-04-18 22:09] LABS: BASO % 0.6 % (0-2.0); EOS % 1.1 % (0-4.5); HEMATOCRIT 27.5 % (32.4-45.2); HEMOGLOBIN 9.4 GM/dL (10.7-15.3); LYMPH % 21.2 % (8-40); MCHC 34.1 g/dl (32.0-36.0); MEAN CELL VOLUME 130.7 fl (80-96); MEAN PLT VOLUME 9.9 fl (7.5-11.1); MONO % 8.7 % (3.8-10.2); NEUT % 68.4 % (42.8-82.8); PLATELET COUNT 239 10^3/uL (134-434); RDW 16.1 % (11.6-15.6); WHITE BLOOD COUNT 10.1 K/mm3 (4.0-10.0)
[2023-04-18] MEDS ORDERED: morphine CARPU-JECT 2 MG/1 ML DISP.SYRIN IVPUSH ONE (22:09)
[2023-04-18 22:17] LABS: MCH 44.6 pg (25.7-33.7)
[2023-04-18 22:19] LABS: INR 1.72 (0.83-1.09); PROTHROMBIN TIME (PATIENT) 19.8 SEC (9.7-13.0)
[2023-04-18 22:32] LABS: POTASSIUM 3.2 mmol/L (3.5-5.1)
[2023-04-18 22:34] LABS: CALCIUM 8.3 mg/dL (8.5-10.1)
[2023-04-18 22:35] LABS: ALBUMIN 2.2 g/dl (3.4-5.0); BLOOD UREA NITROGEN 14.2 mg/dL (7-18)
[2023-04-18 22:37] LABS: BILIRUBIN,DIRECT 3.5 mg/dL (0.0-0.2)
[2023-04-18 22:38] LABS: CREATININE 0.9 mg/dL (0.55-1.3)
[2023-04-18 22:40] LABS: TOT PROT 7.5 g/dl (6.4-8.2)
[2023-04-19 00:12] LABS: ANISOCYTOSIS 2+; MACROCYTOSIS 2+; OVALOCYTE 2+; TEAR DROP CELLS 1+
[2023-04-19 00:57] LABS: EPI CELLS 23 /uL (0-25.1); HYALINE CASTS 1 /uL (0-3.1); URINE APPEARANCE Cloudy; URINE BACTERIA >9,000 /uL (0-1359); URINE BILIRUBIN Moderate (NEGATIVE); URINE COLOR DK YELLOW; URINE GLUCOSE (UA) Negative (NEGATIVE); URINE KETONE Trace (NEGATIVE); URINE LEUK ESTERASE Moderate (NEGATIVE); URINE NITRITE Positive (NEGATIVE); URINE PROTEIN 30 (NEGATIVE); URINE WBC 1702 /uL (0-25.8)
[2023-04-19 00:59] LABS: URINE RBC 65.9 /uL (0-23.9)
[2023-04-19] MEDS ORDERED: CEFTRIAXONE 1,000 MG in DEXTROSE 5%-WATER - 50 ML IVPB ONE (00:59)
[2023-04-19] MEDS ORDERED: CEFTRIAXONE 1 GM/50 ML BAG ONE (01:05)
[2023-04-19] MEDS ORDERED: POTASSIUM CHLORIDE ORAL LIQUID 20 MEQ/15 ML PO ONE ×4 (03:17→18:30)
[2023-04-19] MEDS ORDERED: KETOROLAC TROMETHAMINE 15 MG/ML VIAL IM PRN ×2 (03:22→05:17)
[2023-04-19] MEDS ORDERED: LORazepam 1 MG TABLET PO PRN (03:27)
[2023-04-19] MEDS ORDERED: PHYTONADIONE 5 MG TABLET PO ONE (05:41)
[2023-04-19] MEDS: FUROSEMIDE 40 MG/4 ML INJECTABLE VIAL IVPUSH SCH ×2 (06:46→15:18)
[2023-04-19] MEDS ORDERED: FOLIC ACID 1 MG TABLET (FP) PO SCH (10:00)
[2023-04-19 10:03] LABS: BASO % 1.3 % (0-2.0); EOS % 2.2 % (0-4.5); HEMATOCRIT 26.5 % (32.4-45.2); MCHC 33.8 g/dl (32.0-36.0); MEAN CELL VOLUME 130.7 fl (80-96); MEAN PLT VOLUME 8.4 fl (7.5-11.1); MONO % 11.3 % (3.8-10.2); NEUT % 61.2 % (42.8-82.8); PLATELET COUNT 146 10^3/uL (134-434); RBC 2.03 M/mm3 (3.60-5.2); RDW 15.5 % (11.6-15.6); WHITE BLOOD COUNT 7.7 K/mm3 (4.0-10.0)
[2023-04-19 10:10] LABS: MCH 44.2 pg (25.7-33.7)
[2023-04-19 10:25] LABS: POTASSIUM 3.2 mmol/L (3.5-5.1)
[2023-04-19 10:30] LABS: ALBUMIN 1.9 g/dl (3.4-5.0); BLOOD UREA NITROGEN 13.3 mg/dL (7-18); MAGNESIUM 1.2 mg/dL (1.8-2.4)
[2023-04-19 10:32] LABS: CREATININE 0.8 mg/dL (0.55-1.3)
[2023-04-19 10:33] LABS: PHOSPHOROUS 2.4 mg/dL (2.5-4.9)
[2023-04-19 10:34] LABS: BILIRUBIN,TOTAL 5.4 mg/dL (0.2-1); TOT PROT 6.5 g/dl (6.4-8.2)
[2023-04-19] MEDS ORDERED: SPIRONOLACTONE 25 MG TABLET PO SCH (10:45)
[2023-04-19 10:55] LABS: RETICULOCYTES 3.96 % (0.5-1.5)
[2023-04-19] MEDS ORDERED: ALBUMIN HUMAN 25% 12.5 GM/50 ML VIAL IV SCH (14:00)
[2023-04-19] MEDS: THIAMINE HCL 100 MG TABLET (FP) PO SCH (14:16)
[2023-04-19] MEDS: CEFTRIAXONE 1 GM in DEXTROSE 5%-WATER - 50 ML IVPB SCH (14:18)
[2023-04-19] MEDS: ALBUMIN HUMAN 25% 12.5 GM/50 ML VIAL IV SCH ×6 (14:34→18:23)
[2023-04-19 15:46] LABS: BF WBC & OTHER NUCLEATED CELLS 73 /mm3
[2023-04-19] MEDS ORDERED: MAGNESIUM SULF 50% (8.12 MEQ/2 ML-1 GM VIAL) IVPB ONE (16:07)
[2023-04-19 16:13] LABS: BODY FLUID MACROPHAGES 2 %; BODY FLUID MESOTHELIAL 1 %; BODY FLUID MONOCYTE 35 %; BODYL FLD EOSINOPHIL 2 %
[2023-04-19] MEDS: FUROSEMIDE 40 MG TABLET (FP) PO SCH (16:16)
[2023-04-19 16:25] LABS: INR 1.79 (0.83-1.09); PROTHROMBIN TIME (PATIENT) 20.6 SEC (9.7-13.0)
[2023-04-19 16:28] LABS: ACTIVATED PTT 36.2 SECONDS (25.2-36.5)
[2023-04-19 17:41] LABS: HIV INTERPRETATION NEGATIVE (NEGATIVE)
[2023-04-19] MEDS: NAPH,MB-DB/K PH,MBDB POWDER PACKET PO SCH (22:09)
[2023-04-20] MEDS ORDERED: MAGNESIUM SULF 50% (8.12 MEQ/2 ML-1 GM VIAL) IVPB ONE
[2023-04-20 02:12] LABS: PHENCYCLIDINE,URINE NEGATIVE (NEGATIVE); URINE AMPHETAMINES NEGATIVE (NEGATIVE)
[2023-04-20 02:13] LABS: COCAINE, UR NEGATIVE (NEGATIVE); URINE BARBITURATES NEGATIVE (NEGATIVE)
[2023-04-20 02:17] LABS: METHADONE, UR NEGATIVE (NEGATIVE); OPIATES, URI POSITIVE (NEGATIVE); URINE BENZODIAZEPINES POSITIVE (NEGATIVE)
[2023-04-20 09:03] LABS: INR 1.86 (0.83-1.09); PROTHROMBIN TIME (PATIENT) 21.5 SEC (9.7-13.0)
[2023-04-20 09:05] LABS: BASO % 1.1 % (0-2.0); EOS % 1.9 % (0-4.5); HEMATOCRIT 22.2 % (32.4-45.2); HEMOGLOBIN 7.4 GM/dL (10.7-15.3); LYMPH % 32.3 % (8-40); MCHC 33.4 g/dl (32.0-36.0); MEAN CELL VOLUME 129.4 fl (80-96); MEAN PLT VOLUME 8.7 fl (7.5-11.1); MONO % 9.8 % (3.8-10.2); NEUT % 54.9 % (42.8-82.8); PLATELET COUNT 111 10^3/uL (134-434); RBC 1.72 M/mm3 (3.60-5.2); RDW 15.8 % (11.6-15.6); WHITE BLOOD COUNT 5.4 K/mm3 (4.0-10.0)
[2023-04-20 09:06] LABS: MCH 43.3 pg (25.7-33.7)
[2023-04-20 09:40] LABS: CHLORIDE 104 mmol/L (98-107); SODIUM 139 mmol/L (136-145)
[2023-04-20 09:44] LABS: CALCIUM 7.5 mg/dL (8.5-10.1)
[2023-04-20 09:45] LABS: ALBUMIN 2.1 g/dl (3.4-5.0); BLOOD UREA NITROGEN 11.6 mg/dL (7-18); CO2 31 mmol/L (21-32); GLUCOSE,RANDOM 101 mg/dL (74-106)
[2023-04-20 09:48] LABS: CREATININE 0.8 mg/dL (0.55-1.3); SGOT/AST 62 U/L (15-37); SGPT/ALT 27 U/L (13-61)
[2023-04-20 09:49] LABS: BILIRUBIN,TOTAL 3.7 mg/dL (0.2-1); TOT PROT 5.3 g/dl (6.4-8.2)
[2023-04-20 09:51] LABS: ALK PHOS 65 U/L (45-117)
[2023-04-20] MEDS: SPIRONOLACTONE 25 MG TABLET PO SCH (10:03)
[2023-04-20] MEDS: THIAMINE HCL 100 MG TABLET (FP) PO SCH (10:04)
[2023-04-20] MEDS: FUROSEMIDE 40 MG TABLET (FP) PO SCH (10:04)
[2023-04-20] MEDS: NAPH,MB-DB/K PH,MBDB POWDER PACKET PO SCH ×2 (10:04→21:04)
[2023-04-20] MEDS: FOLIC ACID 1 MG TABLET (FP) PO SCH (10:04)
[2023-04-20] MEDS: PANTOPRAZOLE 40 MG TABLET PO SCH (10:04)
[2023-04-20] MEDS: CEFTRIAXONE 1 GM in DEXTROSE 5%-WATER - 50 ML IVPB SCH (10:05)
[2023-04-20] MEDS: NICOTINE 7 MG/24 HOURS TOPICAL PATCH TD SCH (10:05)
[2023-04-20 10:09] LABS: ANION GAP 4 MMOL/L (8-16); POTASSIUM 2.9 mmol/L (3.5-5.1)
[2023-04-20] MEDS ORDERED: POTASSIUM CHLORIDE ORAL LIQUID 20 MEQ/15 ML PO ONE ×2 (10:49→17:09)
[2023-04-20] MEDS ORDERED: POTASSIUM PHOSPHATE 30 MM in SODIUM CHLORIDE 500 ML IVPB ONE ×2 (10:54→12:00)
[2023-04-20] MEDS: KCL 10 MEQ IVPB 10 MEQ/100 ML INFUS.BAG IVPB SCH ×3 (11:37→14:29)
[2023-04-20 17:53] LABS: MAGNESIUM 1.5 mg/dL (1.8-2.4)
[2023-04-20 17:57] LABS: PHOSPHOROUS 2.5 mg/dL (2.5-4.9)
[2023-04-20 21:22] LABS: POTASSIUM 3.8 mmol/L (3.5-5.1)
[2023-04-20 21:24] LABS: CALCIUM 7.3 mg/dL (8.5-10.1)
[2023-04-20 21:25] LABS: BLOOD UREA NITROGEN 10.8 mg/dL (7-18); MAGNESIUM 1.1 mg/dL (1.8-2.4)
[2023-04-20 21:28] LABS: CREATININE 0.8 mg/dL (0.55-1.3); PHOSPHOROUS 2.1 mg/dL (2.5-4.9)
[2023-04-20 21:29] LABS: BILIRUBIN,TOTAL 2.5 mg/dL (0.2-1); TOT PROT 5.6 g/dl (6.4-8.2)
[2023-04-21] MEDS ORDERED: MAGNESIUM SULF 50% (8.12 MEQ/2 ML-1 GM VIAL) IVPB ONE ×4 (01:00→17:15)
[2023-04-21 10:48] LABS: INR 1.77 (0.83-1.09); PROTHROMBIN TIME (PATIENT) 20.4 SEC (9.7-13.0)
[2023-04-21 10:49] LABS: BASO % 1.2 % (0-2.0); EOS % 2.2 % (0-4.5); HEMOGLOBIN 7.5 GM/dL (10.7-15.3); MEAN CELL VOLUME 127.6 fl (80-96); MEAN PLT VOLUME 8.4 fl (7.5-11.1); NEUT % 55.6 % (42.8-82.8); PLATELET COUNT 115 10^3/uL (134-434); RBC 1.73 M/mm3 (3.60-5.2); RDW 15.6 % (11.6-15.6)
[2023-04-21 10:56] LABS: MCH 43.4 pg (25.7-33.7)
[2023-04-21] MEDS: FOLIC ACID 1 MG TABLET (FP) PO SCH (11:20)
[2023-04-21] MEDS: SPIRONOLACTONE 25 MG TABLET PO SCH (11:20)
[2023-04-21] MEDS: NAPH,MB-DB/K PH,MBDB POWDER PACKET PO SCH ×2 (11:21→21:45)
[2023-04-21] MEDS: FUROSEMIDE 40 MG TABLET (FP) PO SCH (11:21)
[2023-04-21] MEDS: CEFTRIAXONE 1 GM in DEXTROSE 5%-WATER - 50 ML IVPB SCH (11:21)
[2023-04-21] MEDS: NICOTINE 7 MG/24 HOURS TOPICAL PATCH TD SCH (11:21)
[2023-04-21] MEDS: THIAMINE HCL 100 MG TABLET (FP) PO SCH (11:21)
[2023-04-21] MEDS: PANTOPRAZOLE 40 MG TABLET PO SCH (11:21)
[2023-04-21 11:24] LABS: POTASSIUM 3.8 mmol/L (3.5-5.1)
[2023-04-21 11:27] LABS: BLOOD UREA NITROGEN 10.9 mg/dL (7-18); CALCIUM 7.5 mg/dL (8.5-10.1); MAGNESIUM 1.7 mg/dL (1.8-2.4)
[2023-04-21 11:30] LABS: CREATININE 0.7 mg/dL (0.55-1.3); PHOSPHOROUS 2.5 mg/dL (2.5-4.9)
[2023-04-21 11:32] LABS: BILIRUBIN,TOTAL 2.3 mg/dL (0.2-1); TOT PROT 5.5 g/dl (6.4-8.2)
[2023-04-21 15:08] LABS: BODY FLUID ALBUMIN 0.8 g/dL (Not Estab.)
[2023-04-21 17:06] LABS: GLIADIN ANTIBODY IGA 9 units (0-19); GLIADIN ANTIBODY IGG 3 units (0-19); TRANSGLUTAMINASE IGG 3 U/mL (0-5)
[2023-04-22] MEDS ORDERED: KETOROLAC TROMETHAMINE 15 MG/ML VIAL IVPUSH ONE (01:35)
[2023-04-22 10:23] LABS: BASO % 1.2 % (0-2.0); EOS % 3.5 % (0-4.5); HEMATOCRIT 24.4 % (32.4-45.2); HEMOGLOBIN 8.2 GM/dL (10.7-15.3); LYMPH % 28.9 % (8-40); MCHC 33.8 g/dl (32.0-36.0); MEAN CELL VOLUME 128.6 fl (80-96); MEAN PLT VOLUME 8.9 fl (7.5-11.1); MONO % 11.7 % (3.8-10.2); NEUT % 54.7 % (42.8-82.8); PLATELET COUNT 122 10^3/uL (134-434); RDW 15.7 % (11.6-15.6); WHITE BLOOD COUNT 5.7 K/mm3 (4.0-10.0)
[2023-04-22 10:40] LABS: POTASSIUM 3.4 mmol/L (3.5-5.1)
[2023-04-22 10:48] LABS: ALBUMIN 2.1 g/dl (3.4-5.0); BLOOD UREA NITROGEN 11.5 mg/dL (7-18); CALCIUM 7.9 mg/dL (8.5-10.1); PHOSPHOROUS 3.6 mg/dL (2.5-4.9)
[2023-04-22 10:49] LABS: MAGNESIUM 1.5 mg/dL (1.8-2.4)
[2023-04-22 10:50] LABS: BILIRUBIN,TOTAL 3.1 mg/dL (0.2-1)
[2023-04-22 10:51] LABS: CREATININE 0.7 mg/dL (0.55-1.3)
[2023-04-22 10:52] LABS: MCH 43.5 pg (25.7-33.7)
[2023-04-22] MEDS ORDERED: MAGNESIUM 2GM/50ML STERILE WATER IVPB IVPB ONE (11:13)
[2023-04-22 11:45] LABS: ANISOCYTOSIS 3+; MACROCYTOSIS 1+
[2023-04-22] MEDS: CEFTRIAXONE 1 GM in DEXTROSE 5%-WATER - 50 ML IVPB SCH (11:53)
[2023-04-22] MEDS: SPIRONOLACTONE 25 MG TABLET PO SCH (11:53)
[2023-04-22] MEDS: FOLIC ACID 1 MG TABLET (FP) PO SCH (11:53)
[2023-04-22] MEDS: FUROSEMIDE 40 MG TABLET (FP) PO SCH (11:54)
[2023-04-22] MEDS: THIAMINE HCL 100 MG TABLET (FP) PO SCH (11:54)
[2023-04-22] MEDS: NAPH,MB-DB/K PH,MBDB POWDER PACKET PO SCH ×2 (11:54→21:58)
[2023-04-22] MEDS: PANTOPRAZOLE 40 MG TABLET PO SCH (11:54)
[2023-04-22] MEDS: NICOTINE 7 MG/24 HOURS TOPICAL PATCH TD SCH (11:54)
[2023-04-22] MEDS ORDERED: POTASSIUM CHLORIDE TABS 20 MEQ TABLET.ER (FP) PO ONE (13:00)
[2023-04-23 09:15] LABS: EOS % 2.6 % (0-4.5); HEMATOCRIT 26.7 % (32.4-45.2); LYMPH % 23.6 % (8-40); MCHC 33.8 g/dl (32.0-36.0); MEAN CELL VOLUME 127.8 fl (80-96); MEAN PLT VOLUME 8.7 fl (7.5-11.1); MONO % 10.1 % (3.8-10.2); NEUT % 62.7 % (42.8-82.8); PLATELET COUNT 141 10^3/uL (134-434); RBC 2.09 M/mm3 (3.60-5.2); RDW 15.3 % (11.6-15.6); WHITE BLOOD COUNT 6.7 K/mm3 (4.0-10.0)
[2023-04-23 09:20] LABS: MCH 43.2 pg (25.7-33.7)
[2023-04-23 09:43] LABS: POTASSIUM 3.9 mmol/L (3.5-5.1)
[2023-04-23 09:49] LABS: ALBUMIN 2.3 g/dl (3.4-5.0); BLOOD UREA NITROGEN 10.1 mg/dL (7-18); CALCIUM 8.1 mg/dL (8.5-10.1); MAGNESIUM 1.6 mg/dL (1.8-2.4)
[2023-04-23 09:52] LABS: CREATININE 0.9 mg/dL (0.55-1.3); PHOSPHOROUS 3.3 mg/dL (2.5-4.9)
[2023-04-23 09:54] LABS: BILIRUBIN,TOTAL 3.5 mg/dL (0.2-1); TOT PROT 6.4 g/dl (6.4-8.2)
[2023-04-23] MEDS ORDERED: MAGNESIUM SULF 50% (8.12 MEQ/2 ML-1 GM VIAL) IVPB ONE (09:57)
[2023-04-23] MEDS: PANTOPRAZOLE 40 MG TABLET PO SCH (09:59)
[2023-04-23] MEDS: NICOTINE 7 MG/24 HOURS TOPICAL PATCH TD SCH (09:59)
[2023-04-23] MEDS: THIAMINE HCL 100 MG TABLET (FP) PO SCH (09:59)
[2023-04-23] MEDS: FOLIC ACID 1 MG TABLET (FP) PO SCH (10:00)
[2023-04-23] MEDS: FUROSEMIDE 40 MG TABLET (FP) PO SCH (10:00)
[2023-04-23] MEDS: NAPH,MB-DB/K PH,MBDB POWDER PACKET PO SCH ×2 (10:00→21:26)
[2023-04-23] MEDS: SPIRONOLACTONE 25 MG TABLET PO SCH (10:00)
[2023-04-23] MEDS: CEFTRIAXONE 1 GM in DEXTROSE 5%-WATER - 50 ML IVPB SCH (10:01)
[2023-04-24] MEDS: PANTOPRAZOLE 40 MG TABLET PO SCH (09:57)
[2023-04-24] MEDS: FUROSEMIDE 40 MG TABLET (FP) PO SCH (10:06)
[2023-04-24] MEDS: FOLIC ACID 1 MG TABLET (FP) PO SCH (10:11)
[2023-04-24] MEDS: SPIRONOLACTONE 25 MG TABLET PO SCH (10:12)
[2023-04-24] MEDS: NICOTINE 7 MG/24 HOURS TOPICAL PATCH TD SCH (10:13)
[2023-04-24] MEDS: NAPH,MB-DB/K PH,MBDB POWDER PACKET PO SCH ×2 (10:13→21:28)
[2023-04-24] MEDS: CEFTRIAXONE 1 GM in DEXTROSE 5%-WATER - 50 ML IVPB SCH (10:13)
[2023-04-24] MEDS: THIAMINE HCL 100 MG TABLET (FP) PO SCH (10:14)
[2023-04-24 11:03] LABS: BASO % 1.3 % (0-2.0); EOS % 2.9 % (0-4.5); HEMATOCRIT 25.2 % (32.4-45.2); HEMOGLOBIN 8.5 GM/dL (10.7-15.3); LYMPH % 27.6 % (8-40); MCHC 33.6 g/dl (32.0-36.0); MEAN CELL VOLUME 125.6 fl (80-96); MEAN PLT VOLUME 8.8 fl (7.5-11.1); MONO % 12.9 % (3.8-10.2); NEUT % 55.3 % (42.8-82.8); PLATELET COUNT 117 10^3/uL (134-434); RBC 2.01 M/mm3 (3.60-5.2); RDW 16.2 % (11.6-15.6); WHITE BLOOD COUNT 5.6 K/mm3 (4.0-10.0)
[2023-04-24 11:04] LABS: MCH 42.2 pg (25.7-33.7)
[2023-04-24 11:34] LABS: POTASSIUM 3.9 mmol/L (3.5-5.1)
[2023-04-24 11:47] LABS: BLOOD UREA NITROGEN 11.3 mg/dL (7-18); CALCIUM 7.9 mg/dL (8.5-10.1)
[2023-04-24 11:48] LABS: ALBUMIN 1.9 g/dl (3.4-5.0); MAGNESIUM 1.7 mg/dL (1.8-2.4)
[2023-04-24 11:50] LABS: PHOSPHOROUS 3.3 mg/dL (2.5-4.9)
[2023-04-24 11:51] LABS: CREATININE 0.8 mg/dL (0.55-1.3)
[2023-04-24 11:52] LABS: BILIRUBIN,TOTAL 3.5 mg/dL (0.2-1); TOT PROT 5.5 g/dl (6.4-8.2)
[2023-04-24 13:33] LABS: INR 1.62 (0.83-1.09); PROTHROMBIN TIME (PATIENT) 18.7 SEC (9.7-13.0)
[2023-04-24] MEDS ORDERED: MAGNESIUM SULF 50% (8.12 MEQ/2 ML-1 GM VIAL) IVPB ONE ×2 (16:38→18:00)
[2023-04-25] MEDS: NAPH,MB-DB/K PH,MBDB POWDER PACKET PO SCH ×2 (09:27→21:28)
[2023-04-25] MEDS: PANTOPRAZOLE 40 MG TABLET PO SCH (09:28)
[2023-04-25] MEDS: FOLIC ACID 1 MG TABLET (FP) PO SCH (09:28)
[2023-04-25] MEDS: THIAMINE HCL 100 MG TABLET (FP) PO SCH (09:28)
[2023-04-25] MEDS: NICOTINE 7 MG/24 HOURS TOPICAL PATCH TD SCH (09:28)
[2023-04-25] MEDS: CEFTRIAXONE 1 GM in DEXTROSE 5%-WATER - 50 ML IVPB SCH (09:28)
[2023-04-25] MEDS: SPIRONOLACTONE 25 MG TABLET PO SCH (09:28)
[2023-04-25] MEDS: FUROSEMIDE 40 MG TABLET (FP) PO SCH (09:28)
[2023-04-25 10:34] LABS: BASO % 1.2 % (0-2.0); HEMATOCRIT 28.1 % (32.4-45.2); HEMOGLOBIN 9.6 GM/dL (10.7-15.3); LYMPH % 31.2 % (8-40); MEAN CELL VOLUME 124.2 fl (80-96); MEAN PLT VOLUME 8.5 fl (7.5-11.1); MONO % 9.5 % (3.8-10.2); NEUT % 55.1 % (42.8-82.8); PLATELET COUNT 178 10^3/uL (134-434); RBC 2.27 M/mm3 (3.60-5.2); RDW 15.7 % (11.6-15.6); WHITE BLOOD COUNT 9.1 K/mm3 (4.0-10.0)
[2023-04-25 10:37] LABS: MCH 42.2 pg (25.7-33.7)
[2023-04-25 10:39] LABS: INR 1.51 (0.83-1.09); PROTHROMBIN TIME (PATIENT) 17.4 SEC (9.7-13.0)
[2023-04-25 10:59] LABS: ANISOCYTOSIS 3+; MACROCYTOSIS 3+
[2023-04-25 11:38] LABS: ALBUMIN 2.3 g/dl (3.4-5.0); BLOOD UREA NITROGEN 12.7 mg/dL (7-18); CALCIUM 8.7 mg/dL (8.5-10.1); MAGNESIUM 1.9 mg/dL (1.8-2.4)
[2023-04-25 11:41] LABS: CREATININE 0.9 mg/dL (0.55-1.3); PHOSPHOROUS 3.5 mg/dL (2.5-4.9)
[2023-04-25 11:42] LABS: BILIRUBIN,TOTAL 4.1 mg/dL (0.2-1)
[2023-04-25 11:43] LABS: TOT PROT 6.8 g/dl (6.4-8.2)
[2023-04-25] MEDS ORDERED: MIDAZOLAM HCL 2 MG/2 ML SINGLE DOSE VIAL ONE (12:49)
[2023-04-25 14:35] LABS: BILIRUBIN,DIRECT 2.2 mg/dL (0.0-0.2)
[2023-04-26] MEDS: CEFTRIAXONE 1 GM in DEXTROSE 5%-WATER - 50 ML IVPB SCH (09:20)
[2023-04-26] MEDS: FOLIC ACID 1 MG TABLET (FP) PO SCH (09:20)
[2023-04-26] MEDS: NAPH,MB-DB/K PH,MBDB POWDER PACKET PO SCH ×2 (09:21→21:25)
[2023-04-26] MEDS: NICOTINE 7 MG/24 HOURS TOPICAL PATCH TD SCH (09:21)
[2023-04-26] MEDS: SPIRONOLACTONE 25 MG TABLET PO SCH (09:21)
[2023-04-26] MEDS: FUROSEMIDE 40 MG TABLET (FP) PO SCH (09:21)
[2023-04-26] MEDS: PANTOPRAZOLE 40 MG TABLET PO SCH (09:21)
[2023-04-26] MEDS: THIAMINE HCL 100 MG TABLET (FP) PO SCH (09:21)
[2023-04-26] MEDS ORDERED: NADOLOL 20 MG TABLET (FP) PO SCH (10:00)
[2023-04-26 10:47] LABS: INR 1.63 (0.83-1.09); PROTHROMBIN TIME (PATIENT) 18.8 SEC (9.7-13.0)
[2023-04-26 10:52] LABS: BASO % 1.3 % (0-2.0); HEMATOCRIT 26.3 % (32.4-45.2); HEMOGLOBIN 8.8 GM/dL (10.7-15.3); LYMPH % 29.2 % (8-40); MCHC 33.5 g/dl (32.0-36.0); MEAN CELL VOLUME 124.6 fl (80-96); MEAN PLT VOLUME 9.1 fl (7.5-11.1); MONO % 11.3 % (3.8-10.2); NEUT % 56.2 % (42.8-82.8); PLATELET COUNT 142 10^3/uL (134-434); RBC 2.11 M/mm3 (3.60-5.2); RDW 15.2 % (11.6-15.6); WHITE BLOOD COUNT 6.4 K/mm3 (4.0-10.0)
[2023-04-26 10:55] LABS: MCH 41.8 pg (25.7-33.7)
[2023-04-26 12:40] LABS: CALCIUM 8.3 mg/dL (8.5-10.1)
[2023-04-26 12:41] LABS: ALBUMIN 2.1 g/dl (3.4-5.0); BLOOD UREA NITROGEN 13.2 mg/dL (7-18); MAGNESIUM 1.9 mg/dL (1.8-2.4)
[2023-04-26 12:44] LABS: CREATININE 0.9 mg/dL (0.55-1.3); PHOSPHOROUS 3.9 mg/dL (2.5-4.9)
[2023-04-26 12:45] LABS: BILIRUBIN,TOTAL 4.5 mg/dL (0.2-1); TOT PROT 5.8 g/dl (6.4-8.2)
[2023-04-26] MEDS: ALBUMIN HUMAN 25% 12.5 GM/50 ML VIAL IV SCH ×4 (17:28→19:06)
[2023-04-26 18:07] LABS: FREE KAPPA,SERUM 112.4 mg/L (3.3-19.4)
[2023-04-27] MEDS ORDERED: MIDODRINE HCL 5 MG TABLET PO ONE ×2 (04:07→14:17)
[2023-04-27] MEDS ORDERED: SODIUM CHLORIDE 250 ML IV STA (04:19)
[2023-04-27] MEDS ORDERED: SODIUM CHLORIDE 1,000 ML IV STA ×2 (07:17→11:25)
[2023-04-27] MEDS ORDERED: MIDODRINE HCL 5 MG TABLET PO SCH ×2 (10:00→14:00)
[2023-04-27] MEDS: CEFTRIAXONE 1 GM in DEXTROSE 5%-WATER - 50 ML IVPB SCH (10:05)
[2023-04-27] MEDS: PANTOPRAZOLE 40 MG TABLET PO SCH (10:05)
[2023-04-27] MEDS: NAPH,MB-DB/K PH,MBDB POWDER PACKET PO SCH ×2 (10:05→21:15)
[2023-04-27] MEDS: THIAMINE HCL 100 MG TABLET (FP) PO SCH (10:05)
[2023-04-27] MEDS: NICOTINE 7 MG/24 HOURS TOPICAL PATCH TD SCH (10:05)
[2023-04-27] MEDS: FOLIC ACID 1 MG TABLET (FP) PO SCH (10:06)
[2023-04-27 10:10] LABS: EOS % 2.5 % (0-4.5); HEMATOCRIT 23.3 % (32.4-45.2); HEMOGLOBIN 7.8 GM/dL (10.7-15.3); LYMPH % 31.2 % (8-40); MCHC 33.4 g/dl (32.0-36.0); MEAN CELL VOLUME 121.8 fl (80-96); MEAN PLT VOLUME 8.7 fl (7.5-11.1); MONO % 12.4 % (3.8-10.2); NEUT % 52.9 % (42.8-82.8); PLATELET COUNT 115 10^3/uL (134-434); RBC 1.91 M/mm3 (3.60-5.2); RDW 15.9 % (11.6-15.6); WHITE BLOOD COUNT 5.3 K/mm3 (4.0-10.0)
[2023-04-27 10:15] LABS: MCH 40.7 pg (25.7-33.7)
[2023-04-27 10:35] LABS: POTASSIUM 3.5 mmol/L (3.5-5.1)
[2023-04-27 10:46] LABS: CALCIUM 7.6 mg/dL (8.5-10.1)
[2023-04-27 10:47] LABS: ALBUMIN 2.3 g/dl (3.4-5.0); BLOOD UREA NITROGEN 15.7 mg/dL (7-18); MAGNESIUM 1.5 mg/dL (1.8-2.4)
[2023-04-27 10:50] LABS: PHOSPHOROUS 2.8 mg/dL (2.5-4.9)
[2023-04-27 10:51] LABS: TOT PROT 5.1 g/dl (6.4-8.2)
[2023-04-27] MEDS ORDERED: LACTATED RINGERS SOLUTION 1,000 ML/1,000 ML INFUS.BAG IV SCH ×2 (13:15→19:12)
[2023-04-27] MEDS: MIDODRINE HCL 5 MG TABLET PO SCH ×2 (14:24→18:36)
[2023-04-27] MEDS ORDERED: LACTATED RINGERS SOLUTION 1,000 ML/1,000 ML INFUS.BAG IV STA (14:40)
[2023-04-27] MEDS ORDERED: MAGNESIUM 2GM/50ML STERILE WATER IVPB IVPB ONE (14:44)
[2023-04-27] MEDS: ALBUMIN HUMAN 25% 12.5 GM/50 ML VIAL IV SCH ×4 (15:25→17:29)
[2023-04-27 20:01] LABS: BASO % 0.7 % (0-2.0); EOS % 2.5 % (0-4.5); HEMATOCRIT 19.4 % (32.4-45.2); LYMPH % 31.3 % (8-40); MCHC 32.6 g/dl (32.0-36.0); MEAN CELL VOLUME 124.1 fl (80-96); MEAN PLT VOLUME 9.4 fl (7.5-11.1); MONO % 12.6 % (3.8-10.2); NEUT % 52.9 % (42.8-82.8); PLATELET COUNT 114 10^3/uL (134-434); RBC 1.56 M/mm3 (3.60-5.2); RDW 15.5 % (11.6-15.6); WHITE BLOOD COUNT 5.2 K/mm3 (4.0-10.0)
[2023-04-27 20:07] LABS: MCH 40.5 pg (25.7-33.7)
[2023-04-27 20:09] LABS: HEMOGLOBIN 6.3 GM/dL (10.7-15.3)
[2023-04-27] MEDS ORDERED: PHYTONADIONE 10 MG/1 ML AMP IVPB ONE (20:21)
[2023-04-27 20:25] LABS: CALCIUM 7.7 mg/dL (8.5-10.1)
[2023-04-27 20:26] LABS: BLOOD UREA NITROGEN 14.8 mg/dL (7-18)
[2023-04-27 20:29] LABS: CREATININE 0.9 mg/dL (0.55-1.3)
[2023-04-27 20:31] LABS: BILIRUBIN,TOTAL 1.5 mg/dL (0.2-1); TOT PROT 5.4 g/dl (6.4-8.2)
[2023-04-27 20:41] LABS: ANISOCYTOSIS 2+; MACROCYTOSIS 2+
[2023-04-27 20:51] LABS: LACTIC ACID 2.4 mmol/L (0.4-2.0)
[2023-04-27] MEDS: MUPIROCIN 2% TOPICAL OINTMENT FOR DECOLONIZATION NS SCH (21:15)
[2023-04-27] MEDS: CHLORHEXIDINE GLUCONATE 4% CLEANSER FOR DECOLONIZATION TP SCH (21:15)
[2023-04-27 21:32] LABS: EPI CELLS 12 /uL (0-25.1); HYALINE CASTS 8 /uL (0-3.1); PH,URINE 5.5 (5.0-8.0); URINE APPEARANCE CLEAR; URINE BACTERIA 9 /uL (0-1359); URINE BILIRUBIN 1+ (NEGATIVE); URINE COLOR DK YELLOW; URINE GLUCOSE (UA) NEGATIVE (NEGATIVE); URINE KETONE NEGATIVE (NEGATIVE); URINE LEUK ESTERASE TRACE (NEGATIVE); URINE NITRITE NEGATIVE (NEGATIVE); URINE PROTEIN NEGATIVE (NEGATIVE); URINE RBC 20 /uL (0-23.9); URINE UROBILINOGEN 4.0 E.U/dl mg/dL (0.2-1.0); URINE WBC 12 /uL (0-25.8)
[2023-04-28] MEDS: MIDODRINE HCL 5 MG TABLET PO SCH ×3 (00:58→17:19)
[2023-04-28] MEDS: LACTATED RINGERS SOLUTION 1,000 ML/1,000 ML INFUS.BAG IV SCH ×2 (06:26→17:20)
[2023-04-28] MEDS: MUPIROCIN 2% TOPICAL OINTMENT FOR DECOLONIZATION NS SCH ×2 (09:35→21:31)
[2023-04-28] MEDS: NICOTINE 7 MG/24 HOURS TOPICAL PATCH TD SCH (09:35)
[2023-04-28] MEDS: NAPH,MB-DB/K PH,MBDB POWDER PACKET PO SCH ×2 (09:41→21:31)
[2023-04-28] MEDS: THIAMINE HCL 100 MG TABLET (FP) PO SCH (09:41)
[2023-04-28] MEDS: FOLIC ACID 1 MG TABLET (FP) PO SCH (09:41)
[2023-04-28] MEDS ORDERED: MIDODRINE HCL 5 MG TABLET PO SCH (10:00)
[2023-04-28] MEDS ORDERED: PANTOPRAZOLE 40 MG TABLET PO SCH (10:00)
[2023-04-28 11:46] LABS: BASO % 1.5 % (0-2.0); HEMATOCRIT 34.6 % (32.4-45.2); HEMOGLOBIN 11.5 GM/dL (10.7-15.3); LYMPH % 25.6 % (8-40); MCH 35.9 pg (25.7-33.7); MCHC 33.3 g/dl (32.0-36.0); MEAN PLT VOLUME 9.2 fl (7.5-11.1); MONO % 11.2 % (3.8-10.2); NEUT % 58.7 % (42.8-82.8); PLATELET COUNT 126 10^3/uL (134-434); RDW 27.7 % (11.6-15.6); WHITE BLOOD COUNT 6.2 K/mm3 (4.0-10.0)
[2023-04-28 11:52] LABS: INR 1.62 (0.83-1.09); PROTHROMBIN TIME (PATIENT) 18.7 SEC (9.7-13.0)
[2023-04-28 11:55] LABS: ACTIVATED PTT 36.4 SECONDS (25.2-36.5)
[2023-04-28 12:08] LABS: POTASSIUM 3.9 mmol/L (3.5-5.1)
[2023-04-28 12:09] LABS: BLOOD UREA NITROGEN 12.1 mg/dL (7-18); CALCIUM 8.1 mg/dL (8.5-10.1)
[2023-04-28 12:11] LABS: ALBUMIN 2.7 g/dl (3.4-5.0); MAGNESIUM 1.9 mg/dL (1.8-2.4)
[2023-04-28 12:14] LABS: CREATININE 0.8 mg/dL (0.55-1.3); PHOSPHOROUS 2.3 mg/dL (2.5-4.9)
[2023-04-28 12:16] LABS: TOT PROT 5.4 g/dl (6.4-8.2)
[2023-04-28 12:57] LABS: ANISOCYTOSIS 1+; MACROCYTOSIS 1+
[2023-04-28] MEDS: POLYETHYLENE GLYCOL (HEALTHYLAX) 3350 17 GM PACKET PO SCH ×3 (13:43→21:31)
[2023-04-28] MEDS: PANTOPRAZOLE 40 MG TABLET PO SCH ×2 (13:44→21:31)
[2023-04-28] MEDS: CHLORHEXIDINE GLUCONATE 4% CLEANSER FOR DECOLONIZATION TP SCH (21:31)
[2023-04-29] MEDS: MIDODRINE HCL 5 MG TABLET PO SCH ×3 (00:59→17:00)
[2023-04-29 07:13] LABS: BASO % 1.2 % (0-2.0); EOS % 3.3 % (0-4.5); HEMATOCRIT 32.5 % (32.4-45.2); LYMPH % 30.4 % (8-40); MCH 36.8 pg (25.7-33.7); MCHC 33.9 g/dl (32.0-36.0); MEAN CELL VOLUME 108.6 fl (80-96); MEAN PLT VOLUME 9.1 fl (7.5-11.1); MONO % 9.5 % (3.8-10.2); NEUT % 55.6 % (42.8-82.8); PLATELET COUNT 130 10^3/uL (134-434); RBC 2.99 M/mm3 (3.60-5.2); WHITE BLOOD COUNT 7.3 K/mm3 (4.0-10.0)
[2023-04-29 07:15] LABS: INR 1.51 (0.83-1.09); PROTHROMBIN TIME (PATIENT) 17.5 SEC (9.7-13.0)
[2023-04-29 07:18] LABS: ACTIVATED PTT 35.9 SECONDS (25.2-36.5)
[2023-04-29 07:26] LABS: POTASSIUM 4.2 mmol/L (3.5-5.1)
[2023-04-29 07:31] LABS: ALBUMIN 2.6 g/dl (3.4-5.0); BLOOD UREA NITROGEN 13.7 mg/dL (7-18); CALCIUM 8.1 mg/dL (8.5-10.1); MAGNESIUM 1.6 mg/dL (1.8-2.4)
[2023-04-29 07:34] LABS: CREATININE 0.7 mg/dL (0.55-1.3); PHOSPHOROUS 2.4 mg/dL (2.5-4.9)
[2023-04-29 07:37] LABS: BILIRUBIN,TOTAL 2.9 mg/dL (0.2-1); TOT PROT 5.3 g/dl (6.4-8.2)
[2023-04-29] MEDS: NAPH,MB-DB/K PH,MBDB POWDER PACKET PO SCH ×2 (10:13→21:47)
[2023-04-29] MEDS: THIAMINE HCL 100 MG TABLET (FP) PO SCH (10:13)
[2023-04-29] MEDS: MUPIROCIN 2% TOPICAL OINTMENT FOR DECOLONIZATION NS SCH (10:13)
[2023-04-29] MEDS: NICOTINE 7 MG/24 HOURS TOPICAL PATCH TD SCH (10:13)
[2023-04-29] MEDS: PANTOPRAZOLE 40 MG TABLET PO SCH ×2 (10:13→21:48)
[2023-04-29] MEDS: FOLIC ACID 1 MG TABLET (FP) PO SCH (10:13)
[2023-04-29] MEDS: POLYETHYLENE GLYCOL (HEALTHYLAX) 3350 17 GM PACKET PO SCH ×2 (10:13→21:47)
[2023-04-29] MEDS: LACTATED RINGERS SOLUTION 1,000 ML/1,000 ML INFUS.BAG IV SCH (10:14)
[2023-04-29] MEDS ORDERED: MUPIROCIN 2% TOPICAL OINTMENT FOR DECOLONIZATION NS SCH (22:00)
[2023-04-29] MEDS ORDERED: CHLORHEXIDINE GLUCONATE 4% CLEANSER FOR DECOLONIZATION TP SCH (22:00)
[2023-04-30] MEDS: MIDODRINE HCL 5 MG TABLET PO SCH ×3 (01:26→17:21)
[2023-04-30] MEDS: POLYETHYLENE GLYCOL (HEALTHYLAX) 3350 17 GM PACKET PO SCH ×2 (09:28→21:34)
[2023-04-30] MEDS: PANTOPRAZOLE 40 MG TABLET PO SCH ×2 (09:28→21:34)
[2023-04-30] MEDS: NAPH,MB-DB/K PH,MBDB POWDER PACKET PO SCH ×2 (09:28→21:34)
[2023-04-30] MEDS: THIAMINE HCL 100 MG TABLET (FP) PO SCH (09:30)
[2023-04-30] MEDS: NICOTINE 7 MG/24 HOURS TOPICAL PATCH TD SCH (09:32)
[2023-04-30] MEDS: FOLIC ACID 1 MG TABLET (FP) PO SCH (09:32)
[2023-05-01] MEDS: MIDODRINE HCL 5 MG TABLET PO SCH ×3 (02:34→17:08)
[2023-05-01 09:58] LABS: HEMATOCRIT 29.5 % (32.4-45.2); HEMOGLOBIN 9.9 GM/dL (10.7-15.3); MCH 36.5 pg (25.7-33.7); MCHC 33.6 g/dl (32.0-36.0); MEAN CELL VOLUME 108.6 fl (80-96); MEAN PLT VOLUME 8.8 fl (7.5-11.1); PLATELET COUNT 107 10^3/uL (134-434); RBC 2.72 M/mm3 (3.60-5.2); RDW 25.7 % (11.6-15.6); WHITE BLOOD COUNT 5.3 K/mm3 (4.0-10.0)
[2023-05-01] MEDS: POLYETHYLENE GLYCOL (HEALTHYLAX) 3350 17 GM PACKET PO SCH ×2 (10:00→21:16)
[2023-05-01] MEDS: NAPH,MB-DB/K PH,MBDB POWDER PACKET PO SCH ×2 (10:01→21:15)
[2023-05-01] MEDS: NICOTINE 7 MG/24 HOURS TOPICAL PATCH TD SCH (10:01)
[2023-05-01] MEDS: FOLIC ACID 1 MG TABLET (FP) PO SCH (10:01)
[2023-05-01] MEDS: PANTOPRAZOLE 40 MG TABLET PO SCH ×2 (10:01→21:15)
[2023-05-01] MEDS: THIAMINE HCL 100 MG TABLET (FP) PO SCH (10:01)
[2023-05-01 10:07] LABS: INR 1.58 (0.83-1.09); PROTHROMBIN TIME (PATIENT) 18.2 SEC (9.7-13.0)
[2023-05-01 10:27] LABS: POTASSIUM 4.3 mmol/L (3.5-5.1)
[2023-05-01 10:34] LABS: ALBUMIN 2.3 g/dl (3.4-5.0)
[2023-05-01 10:36] LABS: MAGNESIUM 1.5 mg/dL (1.8-2.4)
[2023-05-01 10:37] LABS: CREATININE 0.6 mg/dL (0.55-1.3)
[2023-05-01 10:38] LABS: BILIRUBIN,TOTAL 2.1 mg/dL (0.2-1); TOT PROT 5.3 g/dl (6.4-8.2)
[2023-05-01 10:40] LABS: PHOSPHOROUS 2.6 mg/dL (2.5-4.9)
[2023-05-01] MEDS ORDERED: FUROSEMIDE 20 MG TABLET (FP) PO SCH (11:45)
[2023-05-01] MEDS ORDERED: SPIRONOLACTONE 25 MG TABLET PO SCH (11:45)
[2023-05-01] MEDS ORDERED: MAGNESIUM SULF 50% (8.12 MEQ/2 ML-1 GM VIAL) IVPB ONE (16:24)
[2023-05-02] MEDS: MIDODRINE HCL 5 MG TABLET PO SCH ×3 (01:52→18:17)
[2023-05-02 09:39] LABS: BASO % 1.3 % (0-2.0); EOS % 3.8 % (0-4.5); HEMATOCRIT 34.4 % (32.4-45.2); HEMOGLOBIN 11.2 GM/dL (10.7-15.3); LYMPH % 27.3 % (8-40); MCH 36.3 pg (25.7-33.7); MCHC 32.6 g/dl (32.0-36.0); MEAN CELL VOLUME 111.5 fl (80-96); MEAN PLT VOLUME 9.3 fl (7.5-11.1); MONO % 10.4 % (3.8-10.2); NEUT % 57.2 % (42.8-82.8); PLATELET COUNT 120 10^3/uL (134-434); RBC 3.09 M/mm3 (3.60-5.2); RDW 24.7 % (11.6-15.6); WHITE BLOOD COUNT 6.2 K/mm3 (4.0-10.0)
[2023-05-02 09:47] LABS: INR 1.35 (0.83-1.09); PROTHROMBIN TIME (PATIENT) 15.6 SEC (9.7-13.0)
[2023-05-02] MEDS: NICOTINE 7 MG/24 HOURS TOPICAL PATCH TD SCH (09:53)
[2023-05-02] MEDS: PANTOPRAZOLE 40 MG TABLET PO SCH ×2 (09:53→21:32)
[2023-05-02] MEDS: SPIRONOLACTONE 25 MG TABLET PO SCH (09:53)
[2023-05-02] MEDS: THIAMINE HCL 100 MG TABLET (FP) PO SCH (09:53)
[2023-05-02] MEDS: POLYETHYLENE GLYCOL (HEALTHYLAX) 3350 17 GM PACKET PO SCH ×3 (09:53→21:35)
[2023-05-02] MEDS: NAPH,MB-DB/K PH,MBDB POWDER PACKET PO SCH ×2 (09:53→21:32)
[2023-05-02] MEDS: FOLIC ACID 1 MG TABLET (FP) PO SCH (09:53)
[2023-05-02] MEDS: FUROSEMIDE 20 MG TABLET (FP) PO SCH (09:53)
[2023-05-02 10:13] LABS: ANISOCYTOSIS 2+; MACROCYTOSIS 2+
[2023-05-02 10:14] LABS: POTASSIUM 4.5 mmol/L (3.5-5.1)
[2023-05-02 10:23] LABS: CALCIUM 8.5 mg/dL (8.5-10.1)
[2023-05-02 10:25] LABS: ALBUMIN 2.7 g/dl (3.4-5.0); BLOOD UREA NITROGEN 14.3 mg/dL (7-18)
[2023-05-02 10:27] LABS: CREATININE 0.6 mg/dL (0.55-1.3)
[2023-05-02 10:28] LABS: BILIRUBIN,TOTAL 2.4 mg/dL (0.2-1)
[2023-05-02 10:29] LABS: TOT PROT 6.3 g/dl (6.4-8.2)
[2023-05-02 11:49] VITALS: BMI 18.6
[2023-05-02] MEDS: LACTULOSE 20 GM/30 ML UDC (FOR ORAL USE ONLY) PO SCH (14:59)
[2023-05-02] MEDS: oxyCODONE HCL 5 MG TABLET PO PRN (18:17)
[2023-05-03] MEDS: MIDODRINE HCL 5 MG TABLET PO SCH ×3 (02:32→20:04)
[2023-05-03] MEDS: THIAMINE HCL 100 MG TABLET (FP) PO SCH (09:47)
[2023-05-03] MEDS: LACTULOSE 20 GM/30 ML UDC (FOR ORAL USE ONLY) PO SCH (09:47)
[2023-05-03] MEDS: SPIRONOLACTONE 25 MG TABLET PO SCH (09:48)
[2023-05-03] MEDS: FOLIC ACID 1 MG TABLET (FP) PO SCH (09:48)
[2023-05-03] MEDS: NAPH,MB-DB/K PH,MBDB POWDER PACKET PO SCH ×2 (09:49→22:12)
[2023-05-03] MEDS: PANTOPRAZOLE 40 MG TABLET PO SCH ×2 (09:49→22:12)
[2023-05-03] MEDS: FUROSEMIDE 20 MG TABLET (FP) PO SCH (09:49)
[2023-05-03] MEDS: NICOTINE 7 MG/24 HOURS TOPICAL PATCH TD SCH (09:50)
[2023-05-03] MEDS: POLYETHYLENE GLYCOL (HEALTHYLAX) 3350 17 GM PACKET PO SCH ×2 (09:50→22:12)
[2023-05-03 10:20] LABS: EOS % 3.4 % (0-4.5); HEMATOCRIT 29.5 % (32.4-45.2); HEMOGLOBIN 10.1 GM/dL (10.7-15.3); INR 1.44 (0.83-1.09); LYMPH % 23.9 % (8-40); MCH 36.9 pg (25.7-33.7); MCHC 34.1 g/dl (32.0-36.0); MEAN CELL VOLUME 108.4 fl (80-96); MONO % 13.7 % (3.8-10.2); PLATELET COUNT 111 10^3/uL (134-434); PROTHROMBIN TIME (PATIENT) 16.6 SEC (9.7-13.0); RBC 2.72 M/mm3 (3.60-5.2); RDW 23.6 % (11.6-15.6); WHITE BLOOD COUNT 5.2 K/mm3 (4.0-10.0)
[2023-05-03 10:33] LABS: POTASSIUM 4.4 mmol/L (3.5-5.1)
[2023-05-03 10:40] LABS: ALBUMIN 2.4 g/dl (3.4-5.0); CALCIUM 8.3 mg/dL (8.5-10.1); MAGNESIUM 1.8 mg/dL (1.8-2.4)
[2023-05-03 10:41] LABS: BLOOD UREA NITROGEN 14.2 mg/dL (7-18)
[2023-05-03 10:43] LABS: CREATININE 0.6 mg/dL (0.55-1.3); PHOSPHOROUS 3.1 mg/dL (2.5-4.9)
[2023-05-03 10:44] LABS: BILIRUBIN,TOTAL 2.2 mg/dL (0.2-1); TOT PROT 5.8 g/dl (6.4-8.2)
[2023-05-03] MEDS ORDERED: MAGNESIUM SULF 50% (8.12 MEQ/2 ML-1 GM VIAL) IVPB ONE (15:16)
[2023-05-03] MEDS: oxyCODONE HCL 5 MG TABLET PO PRN (20:07)
[2023-05-04] MEDS: MIDODRINE HCL 5 MG TABLET PO SCH ×3 (02:08→17:57)
[2023-05-04 08:20] LABS: BASO % 1.1 % (0-2.0); EOS % 3.7 % (0-4.5); HEMATOCRIT 28.9 % (32.4-45.2); LYMPH % 24.7 % (8-40); MCH 37.5 pg (25.7-33.7); MCHC 34.7 g/dl (32.0-36.0); MEAN CELL VOLUME 107.9 fl (80-96); MONO % 15.1 % (3.8-10.2); NEUT % 55.4 % (42.8-82.8); PLATELET COUNT 114 10^3/uL (134-434); RBC 2.68 M/mm3 (3.60-5.2); RDW 22.7 % (11.6-15.6); WHITE BLOOD COUNT 6.1 K/mm3 (4.0-10.0)
[2023-05-04 08:31] LABS: POTASSIUM 4.4 mmol/L (3.5-5.1)
[2023-05-04 08:37] LABS: CALCIUM 8.1 mg/dL (8.5-10.1)
[2023-05-04 08:38] LABS: ALBUMIN 2.4 g/dl (3.4-5.0); BLOOD UREA NITROGEN 13.1 mg/dL (7-18); MAGNESIUM 1.9 mg/dL (1.8-2.4)
[2023-05-04 08:41] LABS: CREATININE 0.5 mg/dL (0.55-1.3); PHOSPHOROUS 3.3 mg/dL (2.5-4.9)
[2023-05-04 08:42] LABS: BILIRUBIN,TOTAL 2.3 mg/dL (0.2-1); TOT PROT 5.9 g/dl (6.4-8.2)
[2023-05-04] MEDS: LACTULOSE 20 GM/30 ML UDC (FOR ORAL USE ONLY) PO SCH (10:32)
[2023-05-04] MEDS: NAPH,MB-DB/K PH,MBDB POWDER PACKET PO SCH ×2 (10:33→21:09)
[2023-05-04] MEDS: PANTOPRAZOLE 40 MG TABLET PO SCH ×2 (10:33→21:09)
[2023-05-04] MEDS: SPIRONOLACTONE 25 MG TABLET PO SCH (10:33)
[2023-05-04] MEDS: NICOTINE 7 MG/24 HOURS TOPICAL PATCH TD SCH (10:33)
[2023-05-04] MEDS: FOLIC ACID 1 MG TABLET (FP) PO SCH (10:33)
[2023-05-04] MEDS: POLYETHYLENE GLYCOL (HEALTHYLAX) 3350 17 GM PACKET PO SCH ×2 (10:33→23:50)
[2023-05-04] MEDS: FUROSEMIDE 20 MG TABLET (FP) PO SCH (10:33)
[2023-05-04] MEDS: THIAMINE HCL 100 MG TABLET (FP) PO SCH (10:33)
[2023-05-04] MEDS: oxyCODONE HCL 5 MG TABLET PO PRN ×2 (13:25→21:08)
[2023-05-05] MEDS: MIDODRINE HCL 5 MG TABLET PO SCH ×3 (03:00→17:18)
[2023-05-05] MEDS: oxyCODONE HCL 5 MG TABLET PO PRN ×2 (04:50→23:40)
[2023-05-05 08:43] LABS: INR 1.51 (0.83-1.09); PROTHROMBIN TIME (PATIENT) 17.4 SEC (9.7-13.0)
[2023-05-05 08:44] LABS: BASO % 1.2 % (0-2.0); EOS % 4.2 % (0-4.5); HEMATOCRIT 29.1 % (32.4-45.2); HEMOGLOBIN 9.9 GM/dL (10.7-15.3); LYMPH % 28.9 % (8-40); MCH 36.5 pg (25.7-33.7); MCHC 33.8 g/dl (32.0-36.0); MEAN CELL VOLUME 107.9 fl (80-96); MEAN PLT VOLUME 9.3 fl (7.5-11.1); MONO % 14.5 % (3.8-10.2); NEUT % 51.2 % (42.8-82.8); PLATELET COUNT 113 10^3/uL (134-434); RDW 21.9 % (11.6-15.6); WHITE BLOOD COUNT 5.9 K/mm3 (4.0-10.0)
[2023-05-05 09:01] LABS: POTASSIUM 4.2 mmol/L (3.5-5.1)
[2023-05-05 09:06] LABS: ALBUMIN 2.3 g/dl (3.4-5.0); CALCIUM 8.2 mg/dL (8.5-10.1); MAGNESIUM 1.7 mg/dL (1.8-2.4)
[2023-05-05 09:09] LABS: CREATININE 0.6 mg/dL (0.55-1.3); PHOSPHOROUS 3.9 mg/dL (2.5-4.9)
[2023-05-05 09:11] LABS: BILIRUBIN,TOTAL 2.9 mg/dL (0.2-1); TOT PROT 5.7 g/dl (6.4-8.2)
[2023-05-05] MEDS: PANTOPRAZOLE 40 MG TABLET PO SCH ×2 (09:38→22:15)
[2023-05-05] MEDS: FOLIC ACID 1 MG TABLET (FP) PO SCH (09:38)
[2023-05-05] MEDS: POLYETHYLENE GLYCOL (HEALTHYLAX) 3350 17 GM PACKET PO SCH ×2 (09:39→22:15)
[2023-05-05] MEDS: NAPH,MB-DB/K PH,MBDB POWDER PACKET PO SCH ×2 (09:39→22:15)
[2023-05-05] MEDS: NICOTINE 7 MG/24 HOURS TOPICAL PATCH TD SCH (09:39)
[2023-05-05] MEDS: LACTULOSE 20 GM/30 ML UDC (FOR ORAL USE ONLY) PO SCH (09:39)
[2023-05-05] MEDS: THIAMINE HCL 100 MG TABLET (FP) PO SCH (09:39)
[2023-05-05] MEDS ORDERED: ALBUMIN HUMAN 25% 100 ML VIAL IV PRN ×3 (11:27→13:23)
[2023-05-05] MEDS ORDERED: FUROSEMIDE 20 MG TABLET (FP) PO SCH (15:36)
[2023-05-05] MEDS ORDERED: MAGNESIUM 1GM/D5W 100ML - 100 ML IVPB IVPB ONE (16:50)
[2023-05-06] MEDS: MIDODRINE HCL 5 MG TABLET PO SCH ×4 (02:23→18:03)
[2023-05-06 09:32] LABS: BASO % 1.1 % (0-2.0); EOS % 4.3 % (0-4.5); HEMATOCRIT 29.7 % (32.4-45.2); HEMOGLOBIN 9.9 GM/dL (10.7-15.3); LYMPH % 32.9 % (8-40); MCH 36.2 pg (25.7-33.7); MCHC 33.2 g/dl (32.0-36.0); MEAN PLT VOLUME 9.7 fl (7.5-11.1); MONO % 12.9 % (3.8-10.2); NEUT % 48.8 % (42.8-82.8); PLATELET COUNT 114 10^3/uL (134-434); RBC 2.73 M/mm3 (3.60-5.2); RDW 21.3 % (11.6-15.6); WHITE BLOOD COUNT 5.1 K/mm3 (4.0-10.0)
[2023-05-06 09:35] LABS: INR 1.61 (0.83-1.09); PROTHROMBIN TIME (PATIENT) 18.6 SEC (9.7-13.0)
[2023-05-06 09:48] LABS: POTASSIUM 3.9 mmol/L (3.5-5.1)
[2023-05-06 09:56] LABS: ALBUMIN 2.3 g/dl (3.4-5.0); BLOOD UREA NITROGEN 11.3 mg/dL (7-18); CALCIUM 7.9 mg/dL (8.5-10.1); MAGNESIUM 1.7 mg/dL (1.8-2.4)
[2023-05-06 09:58] LABS: CREATININE 0.5 mg/dL (0.55-1.3)
[2023-05-06] MEDS ORDERED: SPIRONOLACTONE 25 MG TABLET PO SCH ×2 (10:00)
[2023-05-06] MEDS ORDERED: NADOLOL 20 MG TABLET (FP) PO SCH (10:00)
[2023-05-06 10:01] LABS: PHOSPHOROUS 3.4 mg/dL (2.5-4.9)
[2023-05-06 10:03] LABS: TOT PROT 5.2 g/dl (6.4-8.2)
[2023-05-06] MEDS: FOLIC ACID 1 MG TABLET (FP) PO SCH (10:23)
[2023-05-06] MEDS: THIAMINE HCL 100 MG TABLET (FP) PO SCH (10:23)
[2023-05-06] MEDS: NAPH,MB-DB/K PH,MBDB POWDER PACKET PO SCH ×2 (10:23→21:44)
[2023-05-06] MEDS: PANTOPRAZOLE 40 MG TABLET PO SCH ×2 (10:23→21:44)
[2023-05-06] MEDS: SPIRONOLACTONE 25 MG TABLET PO SCH (10:24)
[2023-05-06] MEDS: FUROSEMIDE 40 MG TABLET (FP) PO SCH (10:24)
[2023-05-06] MEDS: POLYETHYLENE GLYCOL (HEALTHYLAX) 3350 17 GM PACKET PO SCH ×2 (10:24→21:44)
[2023-05-06] MEDS: NICOTINE 7 MG/24 HOURS TOPICAL PATCH TD SCH (10:24)
[2023-05-06] MEDS: LACTULOSE 20 GM/30 ML UDC (FOR ORAL USE ONLY) PO SCH (10:26)
[2023-05-06 11:33] LABS: ANISOCYTOSIS 2+; MACROCYTOSIS 2+
[2023-05-06] MEDS: oxyCODONE HCL 5 MG TABLET PO PRN ×2 (12:36→18:41)
[2023-05-07] MEDS: oxyCODONE HCL 5 MG TABLET PO PRN ×4 (00:39→23:17)
[2023-05-07 09:54] LABS: BASO % 1.2 % (0-2.0); EOS % 3.3 % (0-4.5); HEMOGLOBIN 10.7 GM/dL (10.7-15.3); LYMPH % 26.1 % (8-40); MCH 36.2 pg (25.7-33.7); MCHC 33.4 g/dl (32.0-36.0); MEAN CELL VOLUME 108.3 fl (80-96); MONO % 10.6 % (3.8-10.2); NEUT % 58.8 % (42.8-82.8); PLATELET COUNT 129 10^3/uL (134-434); RBC 2.96 M/mm3 (3.60-5.2); WHITE BLOOD COUNT 5.5 K/mm3 (4.0-10.0)
[2023-05-07 09:58] LABS: INR 1.44 (0.83-1.09); PROTHROMBIN TIME (PATIENT) 16.6 SEC (9.7-13.0)
[2023-05-07] MEDS: LACTULOSE 20 GM/30 ML UDC (FOR ORAL USE ONLY) PO SCH (10:04)
[2023-05-07] MEDS: SPIRONOLACTONE 25 MG TABLET PO SCH (10:04)
[2023-05-07] MEDS: FOLIC ACID 1 MG TABLET (FP) PO SCH (10:04)
[2023-05-07] MEDS: MIDODRINE HCL 5 MG TABLET PO SCH ×3 (10:05→17:37)
[2023-05-07] MEDS: NICOTINE 7 MG/24 HOURS TOPICAL PATCH TD SCH (10:05)
[2023-05-07] MEDS: PANTOPRAZOLE 40 MG TABLET PO SCH ×2 (10:05→21:59)
[2023-05-07] MEDS: FUROSEMIDE 40 MG TABLET (FP) PO SCH (10:06)
[2023-05-07] MEDS: THIAMINE HCL 100 MG TABLET (FP) PO SCH (10:06)
[2023-05-07] MEDS: POLYETHYLENE GLYCOL (HEALTHYLAX) 3350 17 GM PACKET PO SCH ×2 (10:06→21:59)
[2023-05-07] MEDS: NAPH,MB-DB/K PH,MBDB POWDER PACKET PO SCH ×2 (10:06→21:59)
[2023-05-07 10:12] LABS: POTASSIUM 5.3 mmol/L (3.5-5.1)
[2023-05-07 10:21] LABS: ALBUMIN 2.6 g/dl (3.4-5.0); MAGNESIUM 1.6 mg/dL (1.8-2.4)
[2023-05-07 10:22] LABS: BLOOD UREA NITROGEN 9.2 mg/dL (7-18)
[2023-05-07 10:24] LABS: CREATININE 0.7 mg/dL (0.55-1.3); PHOSPHOROUS 3.5 mg/dL (2.5-4.9)
[2023-05-07 10:26] LABS: BILIRUBIN,TOTAL 2.8 mg/dL (0.2-1); TOT PROT 6.4 g/dl (6.4-8.2)
[2023-05-07] MEDS ORDERED: FUROSEMIDE 40 MG TABLET (FP) PO ONE (14:00)
[2023-05-08 09:44] LABS: HEMOGLOBIN 11.3 GM/dL (10.7-15.3); MCH 35.9 pg (25.7-33.7); MCHC 33.3 g/dl (32.0-36.0); MEAN CELL VOLUME 107.9 fl (80-96); MEAN PLT VOLUME 9.6 fl (7.5-11.1); PLATELET COUNT 146 10^3/uL (134-434); RBC 3.16 M/mm3 (3.60-5.2); RDW 21.4 % (11.6-15.6); WHITE BLOOD COUNT 7.2 K/mm3 (4.0-10.0)
[2023-05-08 09:47] LABS: INR 1.54 (0.83-1.09); PROTHROMBIN TIME (PATIENT) 17.8 SEC (9.7-13.0)
[2023-05-08 10:03] LABS: POTASSIUM 3.6 mmol/L (3.5-5.1)
[2023-05-08 10:05] LABS: ALBUMIN 2.8 g/dl (3.4-5.0); CALCIUM 8.6 mg/dL (8.5-10.1)
[2023-05-08 10:06] LABS: BLOOD UREA NITROGEN 7.9 mg/dL (7-18); MAGNESIUM 1.4 mg/dL (1.8-2.4)
[2023-05-08] MEDS: MAGNESIUM OXIDE 400 MG TABLET (FP) PO SCH (10:08)
[2023-05-08] MEDS: SPIRONOLACTONE 25 MG TABLET PO SCH (10:08)
[2023-05-08 10:09] LABS: CREATININE 0.7 mg/dL (0.55-1.3); PHOSPHOROUS 3.9 mg/dL (2.5-4.9)
[2023-05-08] MEDS: FOLIC ACID 1 MG TABLET (FP) PO SCH (10:09)
[2023-05-08] MEDS: NAPH,MB-DB/K PH,MBDB POWDER PACKET PO SCH ×2 (10:09→21:12)
[2023-05-08] MEDS: MIDODRINE HCL 5 MG TABLET PO SCH ×3 (10:09→18:22)
[2023-05-08] MEDS: THIAMINE HCL 100 MG TABLET (FP) PO SCH (10:09)
[2023-05-08] MEDS: NICOTINE 7 MG/24 HOURS TOPICAL PATCH TD SCH (10:09)
[2023-05-08 10:10] LABS: BILIRUBIN,TOTAL 3.4 mg/dL (0.2-1); TOT PROT 6.4 g/dl (6.4-8.2)
[2023-05-08] MEDS: POLYETHYLENE GLYCOL (HEALTHYLAX) 3350 17 GM PACKET PO SCH ×2 (10:10→21:12)
[2023-05-08] MEDS: LACTULOSE 20 GM/30 ML UDC (FOR ORAL USE ONLY) PO SCH (10:10)
[2023-05-08] MEDS: PANTOPRAZOLE 40 MG TABLET PO SCH ×2 (10:11→21:12)
[2023-05-08 10:28] LABS: ANISOCYTOSIS 2+; MACROCYTOSIS 1+
[2023-05-08] MEDS: oxyCODONE HCL 5 MG TABLET PO PRN ×2 (12:21→18:47)
[2023-05-08] MEDS: FUROSEMIDE 40 MG TABLET (FP) PO SCH (13:41)
[2023-05-08] MEDS ORDERED: SPIRONOLACTONE 25 MG TABLET PO SCH (15:33)
[2023-05-09] MEDS: oxyCODONE HCL 5 MG TABLET PO PRN ×2 (01:15→10:44)
[2023-05-09] MEDS: FUROSEMIDE 40 MG TABLET (FP) PO SCH ×2 (06:10→13:52)
[2023-05-09 08:55] LABS: BASO % 0.9 % (0-2.0); EOS % 2.2 % (0-4.5); HEMATOCRIT 35.1 % (32.4-45.2); HEMOGLOBIN 11.6 GM/dL (10.7-15.3); LYMPH % 17.7 % (8-40); MCH 35.5 pg (25.7-33.7); MCHC 32.9 g/dl (32.0-36.0); MEAN CELL VOLUME 107.8 fl (80-96); MEAN PLT VOLUME 9.6 fl (7.5-11.1); MONO % 10.4 % (3.8-10.2); NEUT % 68.8 % (42.8-82.8); PLATELET COUNT 179 10^3/uL (134-434); RBC 3.26 M/mm3 (3.60-5.2); WHITE BLOOD COUNT 8.8 K/mm3 (4.0-10.0)
[2023-05-09 09:01] LABS: INR 1.46 (0.83-1.09); PROTHROMBIN TIME (PATIENT) 16.9 SEC (9.7-13.0)
[2023-05-09 09:14] LABS: POTASSIUM 3.9 mmol/L (3.5-5.1)
[2023-05-09 09:16] LABS: CALCIUM 8.9 mg/dL (8.5-10.1)
[2023-05-09 09:17] LABS: ALBUMIN 2.9 g/dl (3.4-5.0); MAGNESIUM 1.4 mg/dL (1.8-2.4)
[2023-05-09 09:20] LABS: CREATININE 0.7 mg/dL (0.55-1.3); PHOSPHOROUS 3.5 mg/dL (2.5-4.9)
[2023-05-09 09:21] LABS: BILIRUBIN,TOTAL 4.4 mg/dL (0.2-1); TOT PROT 6.9 g/dl (6.4-8.2)
[2023-05-09] MEDS: PANTOPRAZOLE 40 MG TABLET PO SCH ×2 (09:23→21:36)
[2023-05-09] MEDS: THIAMINE HCL 100 MG TABLET (FP) PO SCH (09:23)
[2023-05-09] MEDS: NAPH,MB-DB/K PH,MBDB POWDER PACKET PO SCH ×2 (09:23→21:37)
[2023-05-09] MEDS: POLYETHYLENE GLYCOL (HEALTHYLAX) 3350 17 GM PACKET PO SCH ×2 (09:23→21:38)
[2023-05-09] MEDS: LACTULOSE 20 GM/30 ML UDC (FOR ORAL USE ONLY) PO SCH (09:23)
[2023-05-09] MEDS: NICOTINE 7 MG/24 HOURS TOPICAL PATCH TD SCH (09:24)
[2023-05-09] MEDS: MIDODRINE HCL 5 MG TABLET PO SCH ×3 (09:24→17:51)
[2023-05-09] MEDS: MAGNESIUM OXIDE 400 MG TABLET (FP) PO SCH (09:25)
[2023-05-09] MEDS: FOLIC ACID 1 MG TABLET (FP) PO SCH (09:25)
[2023-05-09 12:43] LABS: HEMATOCRIT 33.9 % (32.4-45.2); HEMOGLOBIN 11.2 GM/dL (10.7-15.3); MCH 35.7 pg (25.7-33.7); MCHC 33.1 g/dl (32.0-36.0); MEAN CELL VOLUME 107.6 fl (80-96); MEAN PLT VOLUME 9.6 fl (7.5-11.1); PLATELET COUNT 149 10^3/uL (134-434); RBC 3.15 M/mm3 (3.60-5.2); RDW 20.1 % (11.6-15.6); WHITE BLOOD COUNT 5.9 K/mm3 (4.0-10.0)
[2023-05-09 12:56] LABS: INR 1.5 (0.83-1.09); PROTHROMBIN TIME (PATIENT) 17.3 SEC (9.7-13.0)
[2023-05-09 13:01] LABS: POTASSIUM 3.5 mmol/L (3.5-5.1)
[2023-05-09 13:03] LABS: CALCIUM 8.7 mg/dL (8.5-10.1)
[2023-05-09 13:04] LABS: ALBUMIN 2.8 g/dl (3.4-5.0); BLOOD UREA NITROGEN 7.9 mg/dL (7-18)
[2023-05-09 13:05] LABS: MAGNESIUM 1.5 mg/dL (1.8-2.4)
[2023-05-09 13:09] LABS: CREATININE 0.8 mg/dL (0.55-1.3); PHOSPHOROUS 3.2 mg/dL (2.5-4.9); TOT PROT 6.6 g/dl (6.4-8.2)
[2023-05-09] MEDS ORDERED: levETIRAcetam 500 MG/5 ML INJECTION VIAL IVPB ONE ×2 (14:54→15:15)
[2023-05-09] MEDS ORDERED: LORazepam 2 MG/ML SDV VIAL IVPUSH PRN (14:55)
[2023-05-09] MEDS ORDERED: MAGNESIUM SULF 50% (8.12 MEQ/2 ML-1 GM VIAL) IVPB ONE (16:28)
[2023-05-09] MEDS ORDERED: ACETAMINOPHEN 500 MG TABLET (FP) PO ONE (16:39)
[2023-05-10] MEDS: FUROSEMIDE 40 MG TABLET (FP) PO SCH ×2 (05:50→13:46)
[2023-05-10 08:35] LABS: BASO % 0.6 % (0-2.0); EOS % 1.4 % (0-4.5); HEMATOCRIT 32.9 % (32.4-45.2); HEMOGLOBIN 11.2 GM/dL (10.7-15.3); INR 1.44 (0.83-1.09); LYMPH % 18.3 % (8-40); MCH 35.7 pg (25.7-33.7); MCHC 34.1 g/dl (32.0-36.0); MEAN CELL VOLUME 104.6 fl (80-96); NEUT % 69.7 % (42.8-82.8); PROTHROMBIN TIME (PATIENT) 16.6 SEC (9.7-13.0); RBC 3.14 M/mm3 (3.60-5.2); RDW 20.2 % (11.6-15.6)
[2023-05-10 08:40] LABS: MEAN PLT VOLUME 9.2 fl (7.5-11.1); PLATELET COUNT 139 10^3/uL (134-434)
[2023-05-10 08:48] LABS: POTASSIUM 3.4 mmol/L (3.5-5.1)
[2023-05-10 08:52] LABS: ALBUMIN 2.6 g/dl (3.4-5.0); BLOOD UREA NITROGEN 7.9 mg/dL (7-18); CALCIUM 8.7 mg/dL (8.5-10.1); MAGNESIUM 1.8 mg/dL (1.8-2.4)
[2023-05-10 08:55] LABS: CREATININE 0.7 mg/dL (0.55-1.3); PHOSPHOROUS 3.9 mg/dL (2.5-4.9)
[2023-05-10 08:57] LABS: BILIRUBIN,TOTAL 3.7 mg/dL (0.2-1); TOT PROT 6.3 g/dl (6.4-8.2)
[2023-05-10] MEDS: FOLIC ACID 1 MG TABLET (FP) PO SCH (09:52)
[2023-05-10] MEDS: SPIRONOLACTONE 25 MG TABLET PO SCH (09:52)
[2023-05-10] MEDS: POLYETHYLENE GLYCOL (HEALTHYLAX) 3350 17 GM PACKET PO SCH ×2 (09:53→21:56)
[2023-05-10] MEDS: MAGNESIUM OXIDE 400 MG TABLET (FP) PO SCH (09:55)
[2023-05-10] MEDS: NICOTINE 7 MG/24 HOURS TOPICAL PATCH TD SCH (09:56)
[2023-05-10] MEDS: NAPH,MB-DB/K PH,MBDB POWDER PACKET PO SCH ×2 (09:56→22:04)
[2023-05-10] MEDS: THIAMINE HCL 100 MG TABLET (FP) PO SCH (09:58)
[2023-05-10] MEDS: PANTOPRAZOLE 40 MG TABLET PO SCH ×2 (09:58→22:04)
[2023-05-10] MEDS: levETIRAcetam 250 MG TABLET PO SCH ×2 (09:58→22:03)
[2023-05-10] MEDS: MIDODRINE HCL 5 MG TABLET PO SCH ×3 (09:58→19:07)
[2023-05-10] MEDS ORDERED: LACTULOSE 20 GM/30 ML UDC (FOR ORAL USE ONLY) PO SCH (10:00)
[2023-05-10] MEDS ORDERED: POTASSIUM CHLORIDE TABS 20 MEQ TABLET.ER (FP) PO ONE (13:30)
[2023-05-10] MEDS ORDERED: MAG HYDROX/AL HYDROX/SIMETH 30 ML UNIT-DOSE CUP PO ONE (20:25)
[2023-05-10] MEDS ORDERED: KETOROLAC TROMETHAMINE 15 MG/ML VIAL IVPUSH ONE (20:38)
[2023-05-11] MEDS: FUROSEMIDE 40 MG TABLET (FP) PO SCH (06:20)
[2023-05-11 08:31] LABS: BASO % 0.7 % (0-2.0); EOS % 1.4 % (0-4.5); HEMATOCRIT 33.8 % (32.4-45.2); HEMOGLOBIN 11.5 GM/dL (10.7-15.3); LYMPH % 21.5 % (8-40); MCH 35.6 pg (25.7-33.7); MCHC 34.1 g/dl (32.0-36.0); MEAN CELL VOLUME 104.6 fl (80-96); MEAN PLT VOLUME 9.2 fl (7.5-11.1); MONO % 10.7 % (3.8-10.2); NEUT % 65.7 % (42.8-82.8); PLATELET COUNT 152 10^3/uL (134-434); RBC 3.24 M/mm3 (3.60-5.2); RDW 19.9 % (11.6-15.6); WHITE BLOOD COUNT 8.2 K/mm3 (4.0-10.0)
[2023-05-11 08:33] LABS: POTASSIUM 3.5 mmol/L (3.5-5.1)
[2023-05-11 08:36] LABS: CALCIUM 8.8 mg/dL (8.5-10.1); INR 1.41 (0.83-1.09); PROTHROMBIN TIME (PATIENT) 16.3 SEC (9.7-13.0)
[2023-05-11 08:37] LABS: ALBUMIN 2.8 g/dl (3.4-5.0); BLOOD UREA NITROGEN 9.4 mg/dL (7-18); MAGNESIUM 1.7 mg/dL (1.8-2.4)
[2023-05-11 08:40] LABS: CREATININE 0.8 mg/dL (0.55-1.3); PHOSPHOROUS 3.9 mg/dL (2.5-4.9)
[2023-05-11 08:41] LABS: BILIRUBIN,TOTAL 4.1 mg/dL (0.2-1); TOT PROT 6.7 g/dl (6.4-8.2)
[2023-05-11] MEDS: NAPH,MB-DB/K PH,MBDB POWDER PACKET PO SCH ×2 (09:50→21:07)
[2023-05-11] MEDS: POLYETHYLENE GLYCOL (HEALTHYLAX) 3350 17 GM PACKET PO SCH ×2 (09:50→21:07)
[2023-05-11] MEDS: MAGNESIUM OXIDE 400 MG TABLET (FP) PO SCH (09:50)
[2023-05-11] MEDS: SPIRONOLACTONE 25 MG TABLET PO SCH (09:50)
[2023-05-11] MEDS: PANTOPRAZOLE 40 MG TABLET PO SCH ×2 (09:51→21:07)
[2023-05-11] MEDS: NICOTINE 7 MG/24 HOURS TOPICAL PATCH TD SCH (09:51)
[2023-05-11] MEDS: levETIRAcetam 250 MG TABLET PO SCH ×2 (09:51→21:07)
[2023-05-11] MEDS: MIDODRINE HCL 5 MG TABLET PO SCH ×3 (09:51→17:31)
[2023-05-11] MEDS: FOLIC ACID 1 MG TABLET (FP) PO SCH (09:51)
[2023-05-11] MEDS: THIAMINE HCL 100 MG TABLET (FP) PO SCH (09:51)
[2023-05-11] MEDS ORDERED: POTASSIUM CHLORIDE TABS 20 MEQ TABLET.ER (FP) PO ONE (15:00)
[2023-05-11] MEDS ORDERED: MAGNESIUM SULF 50% (8.12 MEQ/2 ML-1 GM VIAL) IVPB ONE (15:00)
[2023-05-12 08:58] LABS: POTASSIUM 3.9 mmol/L (3.5-5.1)
[2023-05-12 08:59] LABS: BASO % 0.3 % (0-2.0); EOS % 0.8 % (0-4.5); HEMATOCRIT 32.7 % (32.4-45.2); HEMOGLOBIN 11.3 GM/dL (10.7-15.3); LYMPH % 16.9 % (8-40); MCH 36.3 pg (25.7-33.7); MCHC 34.5 g/dl (32.0-36.0); MEAN PLT VOLUME 8.8 fl (7.5-11.1); MONO % 11.5 % (3.8-10.2); NEUT % 70.5 % (42.8-82.8); PLATELET COUNT 159 10^3/uL (134-434); RBC 3.11 M/mm3 (3.60-5.2); RDW 19.9 % (11.6-15.6); WHITE BLOOD COUNT 6.8 K/mm3 (4.0-10.0)
[2023-05-12 09:17] LABS: INR 1.48 (0.83-1.09); PROTHROMBIN TIME (PATIENT) 17.1 SEC (9.7-13.0)
[2023-05-12] MEDS: SPIRONOLACTONE 25 MG TABLET PO SCH (09:17)
[2023-05-12] MEDS: FOLIC ACID 1 MG TABLET (FP) PO SCH (09:17)
[2023-05-12] MEDS: PANTOPRAZOLE 40 MG TABLET PO SCH ×2 (09:18→21:58)
[2023-05-12] MEDS: MIDODRINE HCL 5 MG TABLET PO SCH ×3 (09:18→17:20)
[2023-05-12] MEDS: MAGNESIUM OXIDE 400 MG TABLET (FP) PO SCH (09:18)
[2023-05-12] MEDS: levETIRAcetam 250 MG TABLET PO SCH ×2 (09:18→21:58)
[2023-05-12] MEDS: THIAMINE HCL 100 MG TABLET (FP) PO SCH (09:18)
[2023-05-12] MEDS: NAPH,MB-DB/K PH,MBDB POWDER PACKET PO SCH ×2 (09:19→21:58)
[2023-05-12] MEDS: NICOTINE 7 MG/24 HOURS TOPICAL PATCH TD SCH (09:19)
[2023-05-12] MEDS: POLYETHYLENE GLYCOL (HEALTHYLAX) 3350 17 GM PACKET PO SCH ×2 (09:22→21:59)
[2023-05-12 09:26] LABS: CALCIUM 8.6 mg/dL (8.5-10.1)
[2023-05-12 09:27] LABS: ALBUMIN 2.8 g/dl (3.4-5.0); BLOOD UREA NITROGEN 9.9 mg/dL (7-18)
[2023-05-12 09:29] LABS: ANISOCYTOSIS 1+; BILIRUBIN,DIRECT 2.1 mg/dL (0.0-0.2); CREATININE 0.8 mg/dL (0.55-1.3); MACROCYTOSIS 1+; PHOSPHOROUS 3.7 mg/dL (2.5-4.9)
[2023-05-12 09:31] LABS: BILIRUBIN,TOTAL 3.6 mg/dL (0.2-1); TOT PROT 6.5 g/dl (6.4-8.2)
[2023-05-12] MEDS ORDERED: FUROSEMIDE 40 MG TABLET (FP) PO SCH (10:00)
[2023-05-12] MEDS ORDERED: ALBUMIN HUMAN 25% 12.5 GM/50 ML VIAL IV SCH (13:45)
[2023-05-12] MEDS: FUROSEMIDE 40 MG TABLET (FP) PO SCH (15:13)
[2023-05-12] MEDS: ALBUMIN HUMAN 25% 12.5 GM/50 ML VIAL IV SCH ×2 (16:31→17:21)
[2023-05-12] MEDS ORDERED: ACETAMINOPHEN 325 MG TABLET (FP) PO ONE (17:20)
[2023-05-13] MEDS: FUROSEMIDE 40 MG TABLET (FP) PO SCH ×2 (06:36→14:25)
[2023-05-13 08:23] LABS: INR 1.5 (0.83-1.09); PROTHROMBIN TIME (PATIENT) 17.3 SEC (9.7-13.0)
[2023-05-13 08:26] LABS: BASO % 0.7 % (0-2.0); EOS % 1.1 % (0-4.5); HEMATOCRIT 31.7 % (32.4-45.2); HEMOGLOBIN 10.8 GM/dL (10.7-15.3); LYMPH % 22.4 % (8-40); MCH 36.1 pg (25.7-33.7); MEAN CELL VOLUME 106.4 fl (80-96); MEAN PLT VOLUME 9.3 fl (7.5-11.1); MONO % 12.2 % (3.8-10.2); NEUT % 63.6 % (42.8-82.8); PLATELET COUNT 132 10^3/uL (134-434); RBC 2.98 M/mm3 (3.60-5.2); RDW 19.1 % (11.6-15.6); WHITE BLOOD COUNT 5.1 K/mm3 (4.0-10.0)
[2023-05-13 08:37] LABS: POTASSIUM 3.6 mmol/L (3.5-5.1)
[2023-05-13 08:40] LABS: CALCIUM 8.5 mg/dL (8.5-10.1)
[2023-05-13 08:41] LABS: ALBUMIN 2.8 g/dl (3.4-5.0); BLOOD UREA NITROGEN 9.9 mg/dL (7-18); MAGNESIUM 1.9 mg/dL (1.8-2.4)
[2023-05-13 08:43] LABS: BILIRUBIN,DIRECT 1.7 mg/dL (0.0-0.2)
[2023-05-13 08:44] LABS: CREATININE 0.7 mg/dL (0.55-1.3)
[2023-05-13 08:45] LABS: BILIRUBIN,TOTAL 2.9 mg/dL (0.2-1); TOT PROT 6.1 g/dl (6.4-8.2)
[2023-05-13] MEDS: SPIRONOLACTONE 25 MG TABLET PO SCH (09:39)
[2023-05-13] MEDS: FOLIC ACID 1 MG TABLET (FP) PO SCH (09:40)
[2023-05-13] MEDS: levETIRAcetam 250 MG TABLET PO SCH ×2 (09:40→22:25)
[2023-05-13] MEDS: THIAMINE HCL 100 MG TABLET (FP) PO SCH (09:40)
[2023-05-13] MEDS: MAGNESIUM OXIDE 400 MG TABLET (FP) PO SCH (09:40)
[2023-05-13] MEDS: NAPH,MB-DB/K PH,MBDB POWDER PACKET PO SCH ×2 (09:41→22:25)
[2023-05-13] MEDS: NICOTINE 7 MG/24 HOURS TOPICAL PATCH TD SCH (09:41)
[2023-05-13] MEDS: POLYETHYLENE GLYCOL (HEALTHYLAX) 3350 17 GM PACKET PO SCH ×2 (09:41→22:25)
[2023-05-13] MEDS: MIDODRINE HCL 5 MG TABLET PO SCH ×3 (09:41→18:00)
[2023-05-13] MEDS: PANTOPRAZOLE 40 MG TABLET PO SCH ×2 (09:41→22:25)
[2023-05-14] MEDS: FUROSEMIDE 40 MG TABLET (FP) PO SCH ×2 (06:18→14:33)
[2023-05-14] MEDS ORDERED: POLYETHYLENE GLYCOL (HEALTHYLAX) 3350 17 GM PACKET PO PRN (07:34)
[2023-05-14 08:30] LABS: INR 1.52 (0.83-1.09); PROTHROMBIN TIME (PATIENT) 17.6 SEC (9.7-13.0)
[2023-05-14 08:46] LABS: BASO % 0.7 % (0-2.0); EOS % 0.8 % (0-4.5); HEMATOCRIT 36.5 % (32.4-45.2); LYMPH % 17.7 % (8-40); MCH 34.8 pg (25.7-33.7); MCHC 32.9 g/dl (32.0-36.0); MEAN CELL VOLUME 105.7 fl (80-96); MEAN PLT VOLUME 9.4 fl (7.5-11.1); MONO % 9.9 % (3.8-10.2); NEUT % 70.9 % (42.8-82.8); PLATELET COUNT 155 10^3/uL (134-434); RBC 3.45 M/mm3 (3.60-5.2); RDW 18.8 % (11.6-15.6); WHITE BLOOD COUNT 7.6 K/mm3 (4.0-10.0)
[2023-05-14 08:47] LABS: POTASSIUM 3.5 mmol/L (3.5-5.1)
[2023-05-14 08:51] LABS: CALCIUM 8.4 mg/dL (8.5-10.1); MAGNESIUM 1.9 mg/dL (1.8-2.4)
[2023-05-14 08:52] LABS: BLOOD UREA NITROGEN 11.7 mg/dL (7-18)
[2023-05-14 08:54] LABS: BILIRUBIN,DIRECT 1.9 mg/dL (0.0-0.2); CREATININE 0.8 mg/dL (0.55-1.3)
[2023-05-14 08:55] LABS: PHOSPHOROUS 3.8 mg/dL (2.5-4.9); TOT PROT 6.3 g/dl (6.4-8.2)
[2023-05-14 08:56] LABS: BILIRUBIN,TOTAL 3.4 mg/dL (0.2-1)
[2023-05-14] MEDS ORDERED: KETOROLAC TROMETHAMINE 15 MG/ML VIAL IVPUSH ONE (09:49)
[2023-05-14] MEDS: METOCLOPRAMIDE HCL INJECTION 10 MG/2 ML VIAL IVPUSH PRN ×2 (10:01→18:26)
[2023-05-14] MEDS: NICOTINE 7 MG/24 HOURS TOPICAL PATCH TD SCH (10:02)
[2023-05-14] MEDS: FOLIC ACID 1 MG TABLET (FP) PO SCH (10:02)
[2023-05-14] MEDS: SPIRONOLACTONE 25 MG TABLET PO SCH (10:02)
[2023-05-14] MEDS: MIDODRINE HCL 5 MG TABLET PO SCH ×3 (10:02→17:24)
[2023-05-14] MEDS: NAPH,MB-DB/K PH,MBDB POWDER PACKET PO SCH ×2 (10:02→21:03)
[2023-05-14] MEDS: THIAMINE HCL 100 MG TABLET (FP) PO SCH (10:02)
[2023-05-14] MEDS: MAGNESIUM OXIDE 400 MG TABLET (FP) PO SCH (10:03)
[2023-05-14] MEDS: levETIRAcetam 250 MG TABLET PO SCH ×2 (10:03→21:03)
[2023-05-14] MEDS: PANTOPRAZOLE 40 MG TABLET PO SCH ×2 (10:03→21:03)
[2023-05-15] MEDS: FUROSEMIDE 40 MG TABLET (FP) PO SCH ×2 (05:34→14:50)
[2023-05-15] MEDS ORDERED: LORazepam 2 MG/ML SDV VIAL IVPUSH PRN (06:47)
[2023-05-15 09:12] LABS: BASO % 0.4 % (0-2.0); EOS % 0.4 % (0-4.5); HEMOGLOBIN 11.9 GM/dL (10.7-15.3); LYMPH % 15.4 % (8-40); MCH 35.8 pg (25.7-33.7); MEAN CELL VOLUME 102.2 fl (80-96); MEAN PLT VOLUME 8.6 fl (7.5-11.1); MONO % 9.7 % (3.8-10.2); NEUT % 74.1 % (42.8-82.8); PLATELET COUNT 150 10^3/uL (134-434); RBC 3.32 M/mm3 (3.60-5.2); RDW 18.4 % (11.6-15.6); WHITE BLOOD COUNT 7.4 K/mm3 (4.0-10.0)
[2023-05-15 09:15] LABS: INR 1.38 (0.83-1.09)
[2023-05-15 09:29] LABS: POTASSIUM 3.2 mmol/L (3.5-5.1)
[2023-05-15 09:31] LABS: CALCIUM 8.7 mg/dL (8.5-10.1)
[2023-05-15 09:32] LABS: ALBUMIN 3.1 g/dl (3.4-5.0); BLOOD UREA NITROGEN 13.1 mg/dL (7-18); MAGNESIUM 1.5 mg/dL (1.8-2.4)
[2023-05-15 09:34] LABS: PHOSPHOROUS 3.2 mg/dL (2.5-4.9)
[2023-05-15 09:35] LABS: CREATININE 0.8 mg/dL (0.55-1.3)
[2023-05-15 09:36] LABS: BILIRUBIN,TOTAL 2.9 mg/dL (0.2-1); TOT PROT 6.8 g/dl (6.4-8.2)
[2023-05-15] MEDS: MAGNESIUM OXIDE 400 MG TABLET (FP) PO SCH (10:20)
[2023-05-15] MEDS: PANTOPRAZOLE 40 MG TABLET PO SCH ×2 (10:20→22:06)
[2023-05-15] MEDS: MIDODRINE HCL 5 MG TABLET PO SCH ×3 (10:20→18:58)
[2023-05-15] MEDS: NICOTINE 7 MG/24 HOURS TOPICAL PATCH TD SCH (10:21)
[2023-05-15] MEDS: THIAMINE HCL 100 MG TABLET (FP) PO SCH (10:21)
[2023-05-15] MEDS: levETIRAcetam 500 MG TABLET (FP) PO SCH ×2 (10:21→22:06)
[2023-05-15] MEDS: NAPH,MB-DB/K PH,MBDB POWDER PACKET PO SCH ×2 (10:21→22:06)
[2023-05-15] MEDS: FOLIC ACID 1 MG TABLET (FP) PO SCH (10:21)
[2023-05-15] MEDS ORDERED: POTASSIUM CHLORIDE TABS 20 MEQ TABLET.ER (FP) PO ONE (15:38)
[2023-05-15] MEDS: SPIRONOLACTONE 25 MG TABLET PO SCH (17:16)
[2023-05-15] MEDS ORDERED: ACETAMINOPHEN 500 MG TABLET (FP) PO ONE (17:23)
[2023-05-15 18:44] LABS: EPI CELLS 20 /uL (0-25.1); HYALINE CASTS 2 /uL (0-3.1); URINE APPEARANCE CLEAR; URINE BACTERIA 520 /uL (0-1359); URINE BILIRUBIN NEGATIVE (NEGATIVE); URINE COLOR DK YELLOW; URINE GLUCOSE (UA) NEGATIVE (NEGATIVE); URINE KETONE NEGATIVE (NEGATIVE); URINE LEUK ESTERASE 1+ (NEGATIVE); URINE NITRITE NEGATIVE (NEGATIVE); URINE PROTEIN NEGATIVE (NEGATIVE); URINE RBC 37 /uL (0-23.9); URINE WBC 116 /uL (0-25.8)
[2023-05-15] MEDS ORDERED: NALOXONE HCL 0.4 MG/ML VIAL IVPUSH ONE (21:46)
[2023-05-15 21:58] LABS: COCAINE, UR NEGATIVE (NEGATIVE); METHADONE, UR NEGATIVE (NEGATIVE); OPIATES, URI NEGATIVE (NEGATIVE); URINE AMPHETAMINES NEGATIVE (NEGATIVE)
[2023-05-15 21:59] LABS: PHENCYCLIDINE,URINE NEGATIVE (NEGATIVE); URINE BARBITURATES NEGATIVE (NEGATIVE); URINE BENZODIAZEPINES NEGATIVE (NEGATIVE)
[2023-05-16] MEDS: FUROSEMIDE 40 MG TABLET (FP) PO SCH ×2 (06:45→13:15)
[2023-05-16 09:27] LABS: HEMATOCRIT 36.7 % (32.4-45.2); HEMOGLOBIN 12.6 GM/dL (10.7-15.3); MCH 35.5 pg (25.7-33.7); MCHC 34.3 g/dl (32.0-36.0); MEAN CELL VOLUME 103.7 fl (80-96); MEAN PLT VOLUME 8.4 fl (7.5-11.1); PLATELET COUNT 178 10^3/uL (134-434); RBC 3.54 M/mm3 (3.60-5.2); RDW 18.4 % (11.6-15.6); WHITE BLOOD COUNT 11.2 K/mm3 (4.0-10.0)
[2023-05-16 09:31] LABS: INR 1.51 (0.83-1.09); PROTHROMBIN TIME (PATIENT) 17.5 SEC (9.7-13.0)
[2023-05-16] MEDS: levETIRAcetam 500 MG TABLET (FP) PO SCH ×2 (09:34→21:18)
[2023-05-16] MEDS: MAGNESIUM OXIDE 400 MG TABLET (FP) PO SCH (09:34)
[2023-05-16] MEDS: SPIRONOLACTONE 25 MG TABLET PO SCH (09:34)
[2023-05-16] MEDS: FOLIC ACID 1 MG TABLET (FP) PO SCH (09:35)
[2023-05-16] MEDS: MIDODRINE HCL 5 MG TABLET PO SCH ×3 (09:35→17:56)
[2023-05-16] MEDS: THIAMINE HCL 100 MG TABLET (FP) PO SCH (09:35)
[2023-05-16] MEDS: NAPH,MB-DB/K PH,MBDB POWDER PACKET PO SCH ×2 (09:36→21:18)
[2023-05-16] MEDS: NICOTINE 7 MG/24 HOURS TOPICAL PATCH TD SCH (09:36)
[2023-05-16] MEDS: PANTOPRAZOLE 40 MG TABLET PO SCH ×2 (09:38→21:18)
[2023-05-16 09:48] LABS: POTASSIUM 4.2 mmol/L (3.5-5.1)
[2023-05-16 09:53] LABS: CALCIUM 9.4 mg/dL (8.5-10.1)
[2023-05-16 09:54] LABS: ALBUMIN 3.5 g/dl (3.4-5.0); MAGNESIUM 1.7 mg/dL (1.8-2.4)
[2023-05-16 09:57] LABS: CREATININE 1.1 mg/dL (0.55-1.3); PHOSPHOROUS 4.9 mg/dL (2.5-4.9)
[2023-05-16 09:58] LABS: TOT PROT 8.1 g/dl (6.4-8.2)
[2023-05-16 09:59] LABS: BILIRUBIN,TOTAL 3.8 mg/dL (0.2-1)
[2023-05-16] MEDS ORDERED: LORazepam 2 MG/ML SDV VIAL IVPUSH PRN (10:05)
[2023-05-16] MEDS ORDERED: MAGNESIUM 2GM/50ML STERILE WATER IVPB IVPB ONE (10:08)
[2023-05-17] MEDS: FUROSEMIDE 40 MG TABLET (FP) PO SCH ×2 (05:11→13:46)
[2023-05-17 09:09] LABS: HEMATOCRIT 34.6 % (32.4-45.2); HEMOGLOBIN 11.7 GM/dL (10.7-15.3); MCH 35.6 pg (25.7-33.7); MCHC 33.9 g/dl (32.0-36.0); PLATELET COUNT 136 10^3/uL (134-434); RDW 18.4 % (11.6-15.6); WHITE BLOOD COUNT 8.7 K/mm3 (4.0-10.0)
[2023-05-17] MEDS: FOLIC ACID 1 MG TABLET (FP) PO SCH (09:16)
[2023-05-17] MEDS: NAPH,MB-DB/K PH,MBDB POWDER PACKET PO SCH ×2 (09:17→21:08)
[2023-05-17] MEDS: NICOTINE 7 MG/24 HOURS TOPICAL PATCH TD SCH (09:17)
[2023-05-17] MEDS: PANTOPRAZOLE 40 MG TABLET PO SCH ×2 (09:17→21:08)
[2023-05-17] MEDS: MAGNESIUM OXIDE 400 MG TABLET (FP) PO SCH (09:17)
[2023-05-17] MEDS: levETIRAcetam 500 MG TABLET (FP) PO SCH ×2 (09:17→21:08)
[2023-05-17] MEDS: SPIRONOLACTONE 25 MG TABLET PO SCH (09:17)
[2023-05-17] MEDS: THIAMINE HCL 100 MG TABLET (FP) PO SCH (09:17)
[2023-05-17] MEDS: MIDODRINE HCL 5 MG TABLET PO SCH ×3 (09:17→17:10)
[2023-05-17 09:33] LABS: POTASSIUM 3.4 mmol/L (3.5-5.1)
[2023-05-17 09:35] LABS: CALCIUM 9.1 mg/dL (8.5-10.1)
[2023-05-17 09:36] LABS: ALBUMIN 3.1 g/dl (3.4-5.0); BLOOD UREA NITROGEN 22.1 mg/dL (7-18); MAGNESIUM 1.7 mg/dL (1.8-2.4)
[2023-05-17 09:39] LABS: CREATININE 0.9 mg/dL (0.55-1.3); PHOSPHOROUS 3.2 mg/dL (2.5-4.9)
[2023-05-17 09:41] LABS: BILIRUBIN,TOTAL 2.6 mg/dL (0.2-1); TOT PROT 7.2 g/dl (6.4-8.2)
[2023-05-17] MEDS ORDERED: POTASSIUM CHLORIDE TABS 10 MEQ TABLET.ER (FP) PO ONE (17:45)
[2023-05-17] MEDS ORDERED: MAGNESIUM 1GM/D5W 100ML - 100 ML IVPB IVPB ONE (17:46)
[2023-05-17] MEDS: METOCLOPRAMIDE HCL INJECTION 10 MG/2 ML VIAL IVPUSH PRN (21:20)
[2023-05-18] MEDS: FUROSEMIDE 40 MG TABLET (FP) PO SCH ×2 (05:54→15:28)
[2023-05-18 07:57] LABS: HEMATOCRIT 32.9 % (32.4-45.2); HEMOGLOBIN 11.4 GM/dL (10.7-15.3); MCH 35.7 pg (25.7-33.7); MCHC 34.6 g/dl (32.0-36.0); MEAN CELL VOLUME 103.1 fl (80-96); MEAN PLT VOLUME 8.6 fl (7.5-11.1); PLATELET COUNT 125 10^3/uL (134-434); RBC 3.19 M/mm3 (3.60-5.2); RDW 17.8 % (11.6-15.6); WHITE BLOOD COUNT 8.7 K/mm3 (4.0-10.0)
[2023-05-18 08:15] LABS: POTASSIUM 3.5 mmol/L (3.5-5.1)
[2023-05-18 08:16] LABS: CALCIUM 8.8 mg/dL (8.5-10.1)
[2023-05-18 08:17] LABS: BLOOD UREA NITROGEN 23.1 mg/dL (7-18)
[2023-05-18 08:21] LABS: CREATININE 0.8 mg/dL (0.55-1.3)
[2023-05-18 08:22] LABS: BILIRUBIN,TOTAL 2.4 mg/dL (0.2-1)
[2023-05-18] MEDS: NICOTINE 7 MG/24 HOURS TOPICAL PATCH TD SCH (09:56)
[2023-05-18] MEDS: MIDODRINE HCL 5 MG TABLET PO SCH ×3 (09:56→17:35)
[2023-05-18] MEDS: FOLIC ACID 1 MG TABLET (FP) PO SCH (09:57)
[2023-05-18] MEDS: SPIRONOLACTONE 25 MG TABLET PO SCH (09:57)
[2023-05-18] MEDS: THIAMINE HCL 100 MG TABLET (FP) PO SCH (09:57)
[2023-05-18] MEDS: MAGNESIUM OXIDE 400 MG TABLET (FP) PO SCH (09:58)
[2023-05-18] MEDS: PANTOPRAZOLE 40 MG TABLET PO SCH ×2 (09:58→22:57)
[2023-05-18] MEDS: NAPH,MB-DB/K PH,MBDB POWDER PACKET PO SCH ×2 (09:58→22:57)
[2023-05-18] MEDS: levETIRAcetam 500 MG TABLET (FP) PO SCH ×2 (09:58→22:57)
[2023-05-18] MEDS: METOCLOPRAMIDE HCL INJECTION 10 MG/2 ML VIAL IVPUSH PRN (17:35)
[2023-05-19 02:57] VITALS: RESP 17
[2023-05-19] MEDS: FUROSEMIDE 40 MG TABLET (FP) PO SCH ×2 (06:29→15:30)
[2023-05-19] MEDS: MAGNESIUM OXIDE 400 MG TABLET (FP) PO SCH (11:08)
[2023-05-19] MEDS: levETIRAcetam 500 MG TABLET (FP) PO SCH (11:08)
[2023-05-19] MEDS: FOLIC ACID 1 MG TABLET (FP) PO SCH (11:08)
[2023-05-19] MEDS: SPIRONOLACTONE 25 MG TABLET PO SCH (11:09)
[2023-05-19] MEDS: NAPH,MB-DB/K PH,MBDB POWDER PACKET PO SCH (11:09)
[2023-05-19] MEDS: THIAMINE HCL 100 MG TABLET (FP) PO SCH (11:09)
[2023-05-19] MEDS: MIDODRINE HCL 5 MG TABLET PO SCH ×2 (11:10→15:30)
[2023-05-19] MEDS: NICOTINE 7 MG/24 HOURS TOPICAL PATCH TD SCH (11:10)
[2023-05-19] MEDS: PANTOPRAZOLE 40 MG TABLET PO SCH (11:10)
[2023-05-19 12:30] LABS: HEMATOCRIT 34.3 % (32.4-45.2); HEMOGLOBIN 11.7 GM/dL (10.7-15.3); MCH 35.6 pg (25.7-33.7); MCHC 34.1 g/dl (32.0-36.0); MEAN CELL VOLUME 104.4 fl (80-96); MEAN PLT VOLUME 8.3 fl (7.5-11.1); PLATELET COUNT 125 10^3/uL (134-434); RBC 3.29 M/mm3 (3.60-5.2); RDW 17.4 % (11.6-15.6); WHITE BLOOD COUNT 8.7 K/mm3 (4.0-10.0)
[2023-05-19 12:48] LABS: POTASSIUM 3.1 mmol/L (3.5-5.1)
[2023-05-19 12:50] LABS: CALCIUM 8.8 mg/dL (8.5-10.1)
[2023-05-19 12:51] LABS: BLOOD UREA NITROGEN 24.4 mg/dL (7-18)
[2023-05-19 12:55] LABS: BILIRUBIN,TOTAL 2.6 mg/dL (0.2-1); CREATININE 0.8 mg/dL (0.55-1.3)
[2023-05-19] MEDS ORDERED: POTASSIUM CHLORIDE TABS 20 MEQ TABLET.ER (FP) PO ONE (13:02)
[2023-05-19 15:19] VITALS: BP 122/78; PULSE 109; TEMP 98.6
== END 2023-05-19 17:16 | disposition home or self-care (01) | DRG 264 ==
LOC: JER 18:36 → JERBED 04-19 01:00 → J6S 04-19 04:31 → JICU 04-27 19:23 → J8W 04-29 18:17 → J4S 05-09 14:40
PROVIDERS: ADMIT Internal Medicine
PROC: 0W9G3ZX Drainage of Peritoneal Cavity, Percutaneous Approach, Diagnostic (ICD-10-PCS; principal; 2023-04-19)
PROC: 06L38CZ Occlusion of Esophageal Vein with Extraluminal Device, Via Natural or Artificial Opening Endoscopic (ICD-10-PCS; 2023-04-25)
PROC: 0W3P8ZZ Control Bleeding in Gastrointestinal Tract, Via Natural or Artificial Opening Endoscopic (ICD-10-PCS; 2023-04-25)
PROC: 0DB78ZX Excision of Stomach, Pylorus, Via Natural or Artificial Opening Endoscopic, Diagnostic (ICD-10-PCS; 2023-04-25)
PROC: 0W9G3ZX Drainage of Peritoneal Cavity, Percutaneous Approach, Diagnostic (ICD-10-PCS; 2023-04-26)
PROC: 30233N1 Transfusion of Nonautologous Red Blood Cells into Peripheral Vein, Percutaneous Approach (ICD-10-PCS; 2023-04-28)
PROC: 0W9G3ZX Drainage of Peritoneal Cavity, Percutaneous Approach, Diagnostic (ICD-10-PCS; 2023-05-05)
PROC: 0W9G3ZX Drainage of Peritoneal Cavity, Percutaneous Approach, Diagnostic (ICD-10-PCS; 2023-05-12)
DX: K70.31 Alcoholic cirrhosis of liver with ascites (principal); E43 Unspecified severe protein-calorie malnutrition; G93.41 Metabolic encephalopathy; I85.01 Esophageal varices with bleeding; K92.0 Hematemesis; R57.1 Hypovolemic shock; E87.20 Acidosis, unspecified; N18.6 End stage renal disease; D52.9 Folate deficiency anemia, unspecified; E83.39 Other disorders of phosphorus metabolism; K76.6 Portal hypertension; D69.6 Thrombocytopenia, unspecified; E83.42 Hypomagnesemia; D53.9 Nutritional anemia, unspecified; E87.6 Hypokalemia; K76.82 Hepatic encephalopathy; N39.0 Urinary tract infection, site not specified; R55 Syncope and collapse; Z68.1 Body mass index [BMI] 19.9 or less, adult; K29.50 Unspecified chronic gastritis without bleeding; R33.9 Retention of urine, unspecified; B96.1 Klebsiella pneumoniae [K. pneumoniae] as the cause of diseases classified elsewhere; R74.01 Elevation of levels of liver transaminase levels; F17.210 Nicotine dependence, cigarettes, uncomplicated; K76.0 Fatty (change of) liver, not elsewhere classified; K31.89 Other diseases of stomach and duodenum
CPT/HCPCS: 0241U-QW; 36415; 36430; 70450-TC; 71045-TC-FY; 74018-TC-FY; 74176-TC; 74177-TC; 74183-TC; 76942-TC; 80053; 80076; 80307; 81003; 82042; 82105; 82136; 82140; 82150; 82248; 82308; 82550; 82607; 82728; 82746; 82784; 82945; 82962; 83010; 83516; 83540; 83550; 83605; 83615; 83690; 83735; 83883; 83918; 84100; 84146; 84155; 84157; 84165; 84703; 85025; 85027; 85045; 85610; 85730; 86038; 86708; 86709; 86803; 86850; 86880; 86900; 86901; 86922; 87040; 87086; 87186; 87340; 87389; 87517; 87635; 93005; 93010; 93306-TC; 97116-GP; 99291; A9579; P9038; P9047; P9058; Q9967